=== PATIENT | male | born 1960 | race Caucasian/White ===

== ENCOUNTER → 2024-07-11 | Outpatient (CLI) | payer MEDICARE, MEDICAID, SELFPAY ==
[2024-07-11 11:56] LABS: Quantiferon-TB* See Sep Rpt
[2024-07-12 14:22] LABS: Cocci Serology, IgM Negative (Negative)
[2024-07-13 14:44] LABS: Cocci Serology, IgG Negative (Negative)
== END | disposition home or self-care (01) ==
LOC: SCTO 11:30
PROVIDERS: PCP Physician Assistant; Referring Provider Nurse Practitioner Family; Visit Provider Nurse Practitioner Family
DX: C43.61 Malignant melanoma of right upper limb, including shoulder (principal)
CPT/HCPCS: 36415; 86331; 86480; 86635

== ENCOUNTER 2024-07-19 07:26 | Outpatient (CLI) | payer MEDICARE, MEDICAID, SELFPAY ==
[2024-07-17 14:11] VITALS: BMI 27.3
[2024-07-18 09:47] LABS: Basophils % (Auto) 0 % (0-2.5); Eosinophils # (Auto) 0.1 Thou/mm3 (0.0-0.5); Eosinophils % (Auto) 2 % (0-10); Hemoglobin 16.2 g/dL (13.5-16.0); Immature Granulocytes % (Auto) 1 % (0-0); Immature Granulocytes Auto 0.04 Thou/mm3 (0.00-0.00); Lymphocytes # (Auto) 1.3 Thou/mm3 (1.0-4.8); Lymphocytes % (Auto) 22 % (10-50); Mean Corpuscular HGB Conc 33.8 g/dl (31.0-37.0); Mean Corpuscular Hemoglobin 31.5 pg (25.0-35.0); Mean Corpuscular Volume 93 fL (80-100); Monocytes # (Auto) 0.6 Thou/mm3 (0.0-0.8); Monocytes % (Auto) 9 % (0-12); Neutrophils # (Auto) 3.9 Thou/mm3 (1.8-7.7); Neutrophils % (Auto) 65 % (37-80); Nucleated Red Blood Cell % 0 /100 WBC (0); Platelet Count 233 Thou/mm3 (140-440); RDW Standard Deviation 53.1 fL (35.1-43.9); Red Blood Count 5.14 Miln/mm3 (4.50-5.90)
[2024-07-18 09:58] LABS: Blood Urea Nitrogen 18 mg/dL (9-23); Creatinine (Component) 1.4 mg/dL (0.6-1.3); Estimated Creatinine Clearance 51.6 mL/min (>60); eGFR 57 See Note
[2024-07-18 10:09] LABS: Partial Thromboplastin Time 27.2 Seconds (22.0-36.0); Prothrombin Time 11.1 Seconds (9.0-12.2)
[2024-07-19] VITALS (15 sets, daily range): BP systolic 107–183; BP diastolic 57–98; PULSE 60–67; RESP 11–17; TEMP 36.2–36.4; O2SAT 95–100
--- NOTE | 2024-07-19 | XR_ITS ---
Examination: AP chest single view TECHNIQUE: AP portable chest single view Exam date and time: July 19, 2024 0948 hours INDICATIONS: Post lung biopsy. FINDINGS: No pneumothorax post lung biopsy Cardiac leads satisfactory position Mild prominence left ventricle IMPRESSION: No pneumothorax post lung biopsy
[2024-07-19] MEDS: SODIUM CHLORIDE 0.9% 250 ML 250 ML 50 ML IV (08:06)
--- NOTE | 2024-07-19 08:30 | XR_ITS ---
Examination: CT guided percutaneous biopsy left lower lobe pulmonary nodule CT thorax without intravenous contrast INDICATIONS: 18 mm 19 mm pulmonary nodules left lower lobe Date and time of procedure: July 19, 2024 at 0847 hours Informed consent provided. A timeout was completed verifying correct patient, procedure, site and positioning. Technique: Axial 3 mm sections were obtained for localization of the left lower lobe pulmonary nodules Appropriate area is marked. The patient's site was prepped and draped in sterile fashion Maximal sterile barrier technique utilized, including hand hygiene Local anesthesia was obtained with 1% lidocaine. Low dose protocols were performed. One or more of the following dose reduction techniques were used; automated exposure control, adjustment of the mA and/or KV according to patient size, use of iterative reconstruction technique. Utilizing CT fluoroscopic guidance 4 core biopsies obtained of the pulmonary nodule left lower lobe Patient appears in stable condition during this procedure. At completion of the procedure, the patient is in satisfactory condition. Estimated blood loss 0 cc Complete pathology report to follow. Impression: Successful CT-guided percutaneous biopsy pulmonary nodule left lower lobe
[2024-07-19] MEDS: DIAZEPAM 5 MG TABLET PO (08:43)
[2024-07-19] MEDS: fentaNYL CIT INJ 50 mCg/ML AMP 2ML IVP (09:18)
--- NOTE | 2024-07-19 10:43 | XR_ITS ---
Examination: AP chest single view TECHNIQUE: AP semiupright portable chest single view INDICATIONS: Postop right lung biopsy today. FINDINGS: No pneumothorax post lung biopsy Mild prominence left ventricle No pulmonary edema IMPRESSION: No pneumothorax post lung biopsy
--- NOTE | 2024-07-19 11:08 | PC.NURSE ---
0938 patient is awake, alert, breathing unlabored, s/p lung biopsy, dressing to left upper back dry with no bleeding, report received from Josh RN, patient to recovery until 2 post procedure chest xrays are completed and read by MD. 0943 chest xray #1 completed 1052 chest xray #[address] Anand read chest xray images x2, no pneumothrax seen on chest xray images, ok to discharge patient home per MD. will get patient ready to go home
--- NOTE | 2024-07-19 11:32 | PC.NURSE ---
1128 patient discharged home in wheelchair accopmanied by brothdallas Betancourt
== END 2024-07-19 11:28 | disposition home or self-care (01) ==
PROVIDERS: Radiology Diagnostic Radiology; PCP Physician Assistant; Referring Provider Nurse Practitioner Family; Visit Provider Nurse Practitioner Family
DX: C43.61 Malignant melanoma of right upper limb, including shoulder (principal)
CPT/HCPCS: 32408; 36415; 77012; 82565; 84520; 85025; 85610; 85730; J3010; J7050; A9270

== ENCOUNTER 2024-07-24 14:41 | Outpatient (RCR) | payer MEDICARE, MEDICAID, SELFPAY | END 2024-07-29 23:59 | disposition home or self-care (01) | LOC: SCTC 14:41 | PROVIDERS: PCP Physician Assistant; Referring Provider Physician Assistant; Visit Provider Nurse Practitioner Family | DX: C43.61 Malignant melanoma of right upper limb, including shoulder (principal); C78.02 Secondary malignant neoplasm of left lung; I12.9 Hypertensive chronic kidney disease with stage 1 through stage 4 chronic kidney disease, or unspecified chronic kidney disease; N18.9 Chronic kidney disease, unspecified; Z90.49 Acquired absence of other specified parts of digestive tract; Z87.2 Personal history of diseases of the skin and subcutaneous tissue | CPT/HCPCS: 99212; G0463 ==

== ENCOUNTER 2024-08-24 09:33 | Outpatient (RCR) | payer MEDICARE, MEDICAID, SELFPAY ==
--- NOTE | 2024-08-26 00:04 | CTCFLWUP_ITS ---
Patient: RONY RIOS : 1960 Page 6 of 7 FOLLOW UP NOTE DATE OF SERVICE: 08/24/2024 NAME: RONY RIOS ACCOUNT: [id number] : 1960 AGE: 63 INTERVAL HISTORY: Patient is here for follow-up. Patient says that he is going to see another oncologist for second op inion tomorrow. But he would like me to start treatment sooner. He is willing to take a risk for tr sunil another immunotherapy. Patient also wanted us to try small doses of dabrafenib and trametinib. He does not want to travel outside for clinical trial option. ONCOLOGY HISTORY: DIAGNOSIS: Malignant melanoma of right upper limb, including shoulder [ICD10] C43.61 DATE OF DIAGNOSIS: Initial diagnosis 12/09/2017 Metastatic disease confirmed on 07/19/2024 STAGE/TNM: Stage IV with recurrence in the lungs Stage IIIa BRAF mutation positive melanoma Patient was treated with dabrafenib and trametinib and had severe abdominal pain. TREATMENT HISTORY: Care?Plan Start?Date Cycle Day Intent OPDIvo 03/01/2018 1 28 Curative?(adjuvant) OPDIvo?every?2?weeks?x?1?year 08/31/2018 1 14 Curative?(adjuvant) KCL?40 07/03/2020 1 1 Palliative HISTORY OF PRESENT ILLNESS: Patient is here to follow-up on the metastatic melanoma. Patient had PET/CT done on 06/06/2024 showed non-hypermetabolic 14 mm 6 mm pulmonary nodules left lower lobe, CT chest without contrast recommend ed. Patient had biopsy of the nodule which is consistent with metastatic melanoma. Patient is here to discuss treatment options. He is on methotrexate for his pemphigus vulgaris and also on prednison e. PREVIOUS NOTE: Rony Rios is a 63-year-old male who had a Sharif's level 4, Breslow depth of invasion approximately 1.4 mm superficial spreading type malignant melanoma removed from right [facility] on 12/15/2017. Lymphocyte infiltration was present but not brisk in the tumor. On 01/11/2018 h e had right axilla sentinel lymph node, right supraclavicular sentinel lymph node and wide excision o f the right shoulder surgical area. No residual melanoma was found the surgical site. Right axillar y sentinel lymph node was negative for metastatic disease. Right supraclavicular sentinel lymph node was positive for metastasis. MRI of the brain was done on 02/10/2018 and it was negative study. Abe min also reportedly had a PET CT scan the results of which are not available to me at this time. Monty lyons also had a left pelvic soft tissue mass/lymph node biopsy on 02/23/2018 which did not show any evide nce of metastatic melanoma. 03/01/2018?05/10/2018: Patient received nivolumab in the adjuvant setting (12 of 26 treatments). 04/12/2018: Patient is in the clinic today for follow-up. When I saw him last time on 03/28/2018 I corrina lyons requested B Raff mutation study on his melanoma sample taken on 12/16/2015. The results are available to me today. He is positive for B Yogesh V600 K mutation. 05/23/2018: In view of B Yogesh mutation positivity I have started the patient on dabrafenib and TRAMETIN IB. Patient has taken these medications day before yesterday and yesterday. Since early this morning he started havi ng significant abdominal pain as well as nausea. He has taken Tylenol with some relief. His pain is slowly getting better at this time. He does not want to take these medications any further. He denies any diarrhea. Denies any fevers. He does have reddish discoloration of his face. 06/01/2018: Patient has stopped taking dabrafenib and TRAMETINIB. His abdominal pain is resolved at t his time. He does not want to take these pills again in view of the significant abdominal pain he had recently. H owever he would like to continue nivolumab. 06/07/2018?02/22/2019: Patient received nivolumab in the adjuvant setting. 06/17/2018: PET CT scan was negative study. 03/07/2019: Patient started noticing blisters on his left cheek. Most likely these are secondary to de rmatitis caused by Opdivo. 03/28/2019: Due to new multiple blisters patient was started on prednisone 60 mg p.o. daily. Unfortun ately he was not able to tolerate. 04/04/2019: Patient was started on 2 mg of prednisone p.o. daily, which was slowly tapered off with res olution of his skin blisters.. 08/02/2019: Patient had left colectomy with colo-distal sigmoid anastomosis and mobilization of spleni c flexure. Surgical pathology specimen showed extensive diverticulosis without any evidence of malignancy. 11/05/2019: Ultrasound of the left side of the neck no cystic or solid masses noted. 06/28/2020: PET CT scan?negative no interval metastatic disease. 04/18/2021: PET CT scan? 08/25/2021: AST 74, ALT 84. 12/16/2021: Hepatitis C viral RNA genotype not detected. 05/28/2022: PET/CT scan? 05/27/2023: PET/CT scan 08/06/2023: CEA 2.5 11/05/2023: CEA is 2.1 02/07/2024: CEA is 2.1 05/26/2024: CEA is 1.9 06/06/2024: PET/KP-znq-vrsvaeddvugdcp 14 mm 6 mm pulmonary nodules left lower lobe OTHER MEDICAL HISTORY/CONDITIONS: FAMILY HISTORY: SOCIAL HISTORY: MEDICATIONS: 1. atorvastatin - 20 mg 1 tab Daily 2. Benadryl - 25 mg Capsule As directed 3. Breo Ellipta - 200-25 mcg/dose As directed 4. clonidine - 0.1 mg 1 tab Twice a Day 5. dilTIAZem HCl - 240 mg 1 Capsule Daily 6. eszopiclone - 2 mg 1 tab Daily 7. flecainide - 100 mg Twice a Day 8. folic acid - 1 mg 1 tab Daily 9. latanoprost (PF) - 0.005 % 1 In the evening 10. Linzess - 290 mcg 1 Capsule Daily 11. losartan - 50 mg 1 tab Daily 12. methotrexate - 2.5 mg 10 tab Weekly 13. metoprolol tartrate - 50 mg Twice a Day 14. Pred - 10 mg 1 tab Daily 15. Protonix - 40 mg 1 tab twice daily 16. Tylenol Extra Strength - 500 mg 2 tab Twice a Day 17. Ventolin - As directed Medications Last Reconciled by Susi Lundberg MA on 08/24/2024 ALLERGIES: hydrocodone-acetaminophen; hydrocodone-acetaminophen; morphine (bulk); meperidine (PF); ca risoprodol; PENICILLAMINE; clindamycin HCl REVIEW OF SYSTEMS: A complete 14-point review of systems was performed and is negative except as noted in interval histo ry. PHYSICAL EXAMINATION: VITAL SIGNS: Temperature?98, B/P?135/86, Oxygen?Saturation?98% Weight?162.8?lbs PAIN: 6 - Severe pain ECOG Performance Status: 0 - Asymptomatic and fully active GENERAL APPEARANCE: Appears well, in no apparent distress, appropriately interactive. HEENT: Normocephalic, no temporal wasting, normal conjunctiva, no scleral icterus, normal hearing, li ps without lesions, neck normal range of motion. CARDIOVASCULAR: Not assessed. PULMONARY: Normal respiratory effort, no respiratory distress or use of accessory muscles, speaking i n full sentences, no tachypnea. EXTREMITIES: No pedal edema or cyanosis. SKIN: Normal skin appearance. NEUROLOGIC: Alert and oriented x4. PSHYCHIATRIC: Appropriate affect, mood normal, behavior normal, intact thought and speech. LABORATORY DATA: I have personally reviewed and interpreted each of the patient?s relevant lab tests, abnormal finding s are below: Date 07/18/24 ??BLOOD?UREA?NITROGEN?(mg/dL) 18 ASSESSMENT/PLAN: Metastatic melanoma 07/19/2024 lung nodule confirmed metastatic melanoma Patient was noted to have 214 mm and 6 mm pulmonary nodules which on biopsy confirmed melanoma I discussed with Mr. Rios the option of starting nivolumab or Keytruda as single agent Will proceed with Keytruda every 3 weeks Patient advised to continue taking his Protonix twice daily Patient is on methotrexate for his pemphigus vulgaris I will wait for second opinion from another oncologist and take into consideration recommendation bef ore starting treatment Will also continue prednisone 10 mg before starting immunotherapy ORDERS: CBC CMP TSH T4 RETURN TO CLINIC: 1 week BILLING AND COMPLIANCE: I reviewed external records from providers outside my specialty as summarized above. I spent a total of 50 minutes on this patient?s care on the day of their visit excluding time spent related to any bi lled procedures. This time includes time spent with the patient as well as time spent documenting in the medical record, reviewing patients records and tests, obtaining history, placing orders, communi cating with other healthcare professionals, counseling the patient, family or caregiver, and/or care coordination for the diagnoses above. Electronically Signed by: {Object.Sanct_ID*PnP.NameFL@}, {Object.Sanct_ID*PnP.Suffix@U} D: {Object.Sanct_Date} T: {Object.Sanct_Time} CC: Randy?Arian,VIDHI PCP: Randy Don Referring: Randy Don This document was completed utilizing speech recognition software. Grammatical errors, random word in sertions, pronoun errors, and incomplete sentences are an occasional consequence of this system due t o software limitations, ambient noise, and hardware issues. Any formal questions or concerns about th e content, text or information contained within the body of this dictation should be directly address ed to the provider for clarification.
== END 2024-08-29 23:59 | disposition home or self-care (01) ==
LOC: SCTC 09:33
PROVIDERS: PCP Physician Assistant; Referring Provider Physician Assistant; Visit Provider Internal Medicine Hematology & Oncology
DX: C43.61 Malignant melanoma of right upper limb, including shoulder (principal); C78.02 Secondary malignant neoplasm of left lung; L10.0 Pemphigus vulgaris
CPT/HCPCS: Q3014

== ENCOUNTER 2024-09-13 09:41 | Outpatient (RCR) | payer MEDICARE, MEDICAID, SELFPAY ==
--- NOTE | 2024-09-05 16:17 | CTCFLWUP_ITS ---
Patient: RONY RIOS : 1960 Page 2 of 2 FOLLOW UP NOTE DATE OF SERVICE: 09/05/2024 NAME: RONY RIOS ACCOUNT: [id number] : 1960 AGE: 63 INTERVAL HISTORY: Patient is here for follow-up. Patient was recently seen for second opinion.. Patient was treated w ith dabrafenib and trametinib in the past and resulted in abdominal pain. Patient's symptoms resolve d after stopping the drug. Patient is here and requesting to restart the medicine at a lower dose to see how he can tolerate better. ONCOLOGY HISTORY: DIAGNOSIS: Malignant melanoma of right upper limb, including shoulder [ICD10] C43.61 DATE OF DIAGNOSIS: Initial diagnosis 12/09/2017 Metastatic disease confirmed on 07/19/2024 STAGE/TNM: Stage IV with recurrence in the lungs Stage IIIa BRAF mutation positive melanoma Patient was treated with dabrafenib and trametinib and had severe abdominal pain. TREATMENT HISTORY: Care?Plan Start?Date Cycle Day Intent OPDIvo 03/01/2018 1 28 Curative?(adjuvant) OPDIvo?every?2?weeks?x?1?year 08/31/2018 1 14 Curative?(adjuvant) KCL?40 07/03/2020 1 1 Palliative Pembrolizumab?alone 08/26/2024 1 21 Palliative HISTORY OF PRESENT ILLNESS: Patient is here to follow-up on the metastatic melanoma. Patient had PET/CT done on 06/06/2024 showed non-hypermetabolic 14 mm 6 mm pulmonary nodules left lower lobe, CT chest without contrast recommend ed. Patient had biopsy of the nodule which is consistent with metastatic melanoma. Patient is here to discuss treatment options. He is on methotrexate for his pemphigus vulgaris and also on prednison e. PREVIOUS NOTE: Rony Rios is a 63-year-old male who had a Sharif's level 4, Breslow depth of invasion approximately 1.4 mm superficial spreading type malignant melanoma removed from right [facility] on 12/15/2017. Lymphocyte infiltration was present but not brisk in the tumor. On 01/11/2018 h e had right axilla sentinel lymph node, right supraclavicular sentinel lymph node and wide excision o f the right shoulder surgical area. No residual melanoma was found the surgical site. Right axillar y sentinel lymph node was negative for metastatic disease. Right supraclavicular sentinel lymph node was positive for metastasis. MRI of the brain was done on 02/10/2018 and it was negative study. Abe min also reportedly had a PET CT scan the results of which are not available to me at this time. Monty lyons also had a left pelvic soft tissue mass/lymph node biopsy on 02/23/2018 which did not show any evide nce of metastatic melanoma. 03/01/2018?05/10/2018: Patient received nivolumab in the adjuvant setting (12 of 26 treatments). 04/12/2018: Patient is in the clinic today for follow-up. When I saw him last time on 03/28/2018 I corrina lyons requested B Raff mutation study on his melanoma sample taken on 12/16/2015. The results are available to me today. He is positive for B Yogesh V600 K mutation. 05/23/2018: In view of B Yogesh mutation positivity I have started the patient on dabrafenib and TRAMETIN IB. Patient has taken these medications day before yesterday and yesterday. Since early this morning he started havi ng significant abdominal pain as well as nausea. He has taken Tylenol with some relief. His pain is slowly getting better at this time. He does not want to take these medications any further. He denies any diarrhea. Denies any fevers. He does have reddish discoloration of his face. 06/01/2018: Patient has stopped taking dabrafenib and TRAMETINIB. His abdominal pain is resolved at t his time. He does not want to take these pills again in view of the significant abdominal pain he had recently. H owever he would like to continue nivolumab. 06/07/2018?02/22/2019: Patient received nivolumab in the adjuvant setting. 06/17/2018: PET CT scan was negative study. 03/07/2019: Patient started noticing blisters on his left cheek. Most likely these are secondary to de rmatitis caused by Opdivo. 03/28/2019: Due to new multiple blisters patient was started on prednisone 60 mg p.o. daily. Unfortun ately he was not able to tolerate. 04/04/2019: Patient was started on 2 mg of prednisone p.o. daily, which was slowly tapered off with res olution of his skin blisters.. 08/02/2019: Patient had left colectomy with colo-distal sigmoid anastomosis and mobilization of spleni c flexure. Surgical pathology specimen showed extensive diverticulosis without any evidence of malignancy. 11/05/2019: Ultrasound of the left side of the neck no cystic or solid masses noted. 06/28/2020: PET CT scan?negative no interval metastatic disease. 04/18/2021: PET CT scan? 08/25/2021: AST 74, ALT 84. 12/16/2021: Hepatitis C viral RNA genotype not detected. 05/28/2022: PET/CT scan? 05/27/2023: PET/CT scan 08/06/2023: CEA 2.5 11/05/2023: CEA is 2.1 02/07/2024: CEA is 2.1 05/26/2024: CEA is 1.9 06/06/2024: PET/SY-yfc-cciogsezfxbyma 14 mm 6 mm pulmonary nodules left lower lobe OTHER MEDICAL HISTORY/CONDITIONS: FAMILY HISTORY: SOCIAL HISTORY: MEDICATIONS: 1. atorvastatin - 20 mg 1 tab Daily 2. Benadryl - 25 mg Capsule As directed 3. Breo Ellipta - 200-25 mcg/dose As directed 4. clonidine - 0.1 mg 1 tab Twice a Day 5. dilTIAZem HCl - 240 mg 1 Capsule Daily 6. eszopiclone - 2 mg 1 tab Daily 7. flecainide - 100 mg Twice a Day 8. folic acid - 1 mg 1 tab Daily 9. latanoprost (PF) - 0.005 % 1 In the evening 10. Linzess - 290 mcg 1 Capsule Daily 11. losartan - 50 mg 1 tab Daily 12. methotrexate - 2.5 mg 10 tab Weekly 13. metoprolol tartrate - 50 mg Twice a Day 14. Pred - 10 mg 1 tab Daily 15. Protonix - 40 mg 1 tab twice daily 16. Tylenol Extra Strength - 500 mg 2 tab Twice a Day 17. Ventolin - As directed Medications Last Reconciled by Susi Lundberg MA on 08/24/2024 ALLERGIES: hydrocodone-acetaminophen; hydrocodone-acetaminophen; morphine (bulk); meperidine (PF); ca risoprodol; PENICILLAMINE; clindamycin HCl REVIEW OF SYSTEMS: A complete 14-point review of systems was performed and is negative except as noted in interval histo ry. PHYSICAL EXAMINATION: VITAL SIGNS: Temperature?99.2, B/P?155/83, Oxygen?Saturation?97% Weight?165?lbs (Change?since? 4:?2.2?lbs) PAIN: 3 - Between mild and moderate pain ECOG Performance Status: 0 - Asymptomatic and fully active GENERAL APPEARANCE: Appears well, in no apparent distress, appropriately interactive. HEENT: Normocephalic, no temporal wasting, normal conjunctiva, no scleral icterus, normal hearing, li ps without lesions, neck normal range of motion. CARDIOVASCULAR: Not assessed. PULMONARY: Normal respiratory effort, no respiratory distress or use of accessory muscles, speaking i n full sentences, no tachypnea. EXTREMITIES: No pedal edema or cyanosis. SKIN: Normal skin appearance. NEUROLOGIC: Alert and oriented x4. PSHYCHIATRIC: Appropriate affect, mood normal, behavior normal, intact thought and speech. LABORATORY DATA: I have personally reviewed and interpreted each of the patient?s relevant lab tests, abnormal finding s are below: Date 07/18/24 ??BLOOD?UREA?NITROGEN?(mg/dL) 18 ASSESSMENT/PLAN: Metastatic melanoma 07/19/2024 lung nodule confirmed metastatic melanoma Patient was noted to have 214 mm and 6 mm pulmonary nodules which on biopsy confirmed melanoma Patient do not want to do immunotherapy at this time and requesting to start tablets Will start on dabrafenib trametinib Patient advised to continue taking his Protonix twice daily Patient is on methotrexate for his pemphigus vulgaris Will start on trametinib 1.5 mg p.o. daily with dabrafenib 150 mg twice daily CBC CMP echo and optometry exam RETURN TO CLINIC: 4 weeks BILLING AND COMPLIANCE: I reviewed external records from providers outside my specialty as summarized above. I spent a total of 50 minutes on this patient?s care on the day of their visit excluding time spent related to any bi lled procedures. This time includes time spent with the patient as well as time spent documenting in the medical record, reviewing patients records and tests, obtaining history, placing orders, communi cating with other healthcare professionals, counseling the patient, family or caregiver, and/or care coordination for the diagnoses above. Electronically Signed by: Khris Venegas MD T: 4:15 PM CC: Randy?Arian,? PCP: Randy Don Referring: Randy Don This document was completed utilizing speech recognition software. Grammatical errors, random word in sertions, pronoun errors, and incomplete sentences are an occasional consequence of this system due t o software limitations, ambient noise, and hardware issues. Any formal questions or concerns about th e content, text or information contained within the body of this dictation should be directly address ed to the provider for clarification.
[2024-09-13 13:07] LABS: Alanine Aminotransferase 73 U/L (10-49); Albumin, Serum 4.7 gm/dL (3.4-4.8); Alkaline Phosphatase 128 U/L (46-116); Anion Gap 11 (7-16); Aspartate Amino Transferase 41 U/L (0-34); BUN/Creatinine Ratio 13 Ratio (12-20); Bilirubin,Total 0.8 mg/dL (0.3-1.2); Blood Urea Nitrogen 16 mg/dL (9-23); Calcium 9.5 mg/dL (8.3-10.6); Calcium (Corrected) 9.5 mg/dL (8.5-10.1); Chloride 106 mMol/L (98-107); Creatinine (Component) 1.2 mg/dL (0.6-1.3); Globulin 2.3 gm/dL (2.3-3.5); Glucose 86 mg/dL (74-106); Osmolality,Calculated 277 (275-295); Potassium 4.2 mMol/L (3.4-5.1); Sodium 139 mMol/L (136-145); eGFR > 60 See Note
[2024-09-13 15:53] LABS: Basophils % (Auto) 0 % (0-2.5); Eosinophils # (Auto) 0.2 Thou/mm3 (0.0-0.5); Eosinophils % (Auto) 3 % (0-10); Hematocrit 45.8 % (41.0-53.0); Hemoglobin 15.5 g/dL (13.5-16.0); Immature Granulocytes % (Auto) 1 % (0-0); Immature Granulocytes Auto 0.05 Thou/mm3 (0.00-0.00); Lymphocytes # (Auto) 1.4 Thou/mm3 (1.0-4.8); Lymphocytes % (Auto) 20 % (10-50); Mean Corpuscular HGB Conc 33.8 g/dl (31.0-37.0); Mean Corpuscular Hemoglobin 31.5 pg (25.0-35.0); Mean Corpuscular Volume 93 fL (80-100); Monocytes # (Auto) 0.6 Thou/mm3 (0.0-0.8); Monocytes % (Auto) 9 % (0-12); Neutrophils # (Auto) 4.5 Thou/mm3 (1.8-7.7); Neutrophils % (Auto) 67 % (37-80); Nucleated Red Blood Cell % 0 /100 WBC (0); Platelet Count 251 Thou/mm3 (140-440); RDW Standard Deviation 50.5 fL (35.1-43.9); Red Blood Count 4.92 Miln/mm3 (4.50-5.90); White Blood Count 6.7 Thou/mm3 (3.8-10.6)
== END 2024-09-29 23:59 | disposition home or self-care (01) ==
LOC: SCTC 09:41
PROVIDERS: PCP Physician Assistant; Referring Provider Physician Assistant; Visit Provider Internal Medicine Hematology & Oncology
DX: C43.61 Malignant melanoma of right upper limb, including shoulder (principal); C78.02 Secondary malignant neoplasm of left lung
CPT/HCPCS: 36591; 80053; 85025; 99212; A4216; J1642; G0463

== ENCOUNTER 2024-10-26 13:50 | Outpatient (RCR) | payer MEDICARE, MEDICAID, SELFPAY ==
--- NOTE | 2024-10-05 11:36 | CTCCONSULT_ITS ---
[facility] [address] [place], [place] [address] Consultation Note Date: 10/05/2024 MR#: [id number] Name: RONY DE LA ROSA : 1960 Dx: C43.61 Malignant melanoma of right upper limb, including shoulder Attending physician. Randy Don PA-C [facility]. Referring physician. Khris Venegas MD Reason for consultation. Patient with metastatic melanoma with recently discovered lung mets biopsy positive referred for SBRT. History of Present Illness: Patient was initially diagnosed with melanoma superficial spreading type involving the proximal right arm 12/15/2017 . Underwent right axilla sentinel lymph node right supra clavicle sentinel lymph node and wide excision of right shoulder surgical area. Stage IIIa BRAF muta tion positive melanoma. Had been on nivolumab 03/01/2018 through 02/22/2019 discontinued due to blistering lesions on skin.. PET scan 06/06/2024 showed non- hypermetabolic 14 mm and 6 mm nodules left lower lobe. CT scan 07/05/2024 revealed 18 mm and 19 mm quality eng left lower lobe. CT-guided biopsy p ositive for malignancy consistent with metastatic melanoma. Patient had second opinion with another oncologist Talisha who discussed SBRT with him, as he was concerned about side effects with various forms of chemo or immunotherapy. Patient is currently taking methotrexate for his pemphigus skin problem being followed by electrical control assembler in [place]. Dr. Venegas will be prescribing dabrafenib and trametinib for patient. Past Medical History: 1. History of superficial spreading melanoma diagnosed since November 2017 as noted in HPI 2. Left colectomy for diverticulosis 2018. 3. Pemphigus being followed by electrical control assembler in [place]. History of hepatitis asthma hypertension gastritis Meds. Atorvastatin Benadryl Breo Ellipta clonidine diltiazem ezopicione flecainide Linzess losartan methotrexate metoprolol prednisone Protonix Tylenol Ventolin as needed Allergies hydrocodone morphine meperidine penicillamine clindamycin Caris bisoprolol. Social History: On disability due to back injury. Denies smoking drinking Review of Systems: Denies any significant pain at this point Physical Exam: General: Well-appearing gentleman in no acute distress HEENT: Atraumatic no cephalic extraocular was intact no oral lesion no cervical or supraclavicular adenopathy CV: Chest clear to auscultation heart regular rate and rhythm ABD: Soft no organomegaly tenderness EXT: No signs of clubbing or edema. Assessment: 1. Recurrent metastatic melanoma, Initial diagnosis 12/15/2017, with recently discovered biopsy-proven lung mets left lower lobe, 18 mm and 19 mm. 2. Patient previously treated and benefited from immunotherapy, now has been prescribed dabafatinib and trametinib under Dr. Venegas's direction. 3. Patient referred for SBRT to the 2 small lesions left lower lobe. Approximately 5000 cGy in 5 fractions given over 2 or 3-week duration will be prescribed. Patient told of the usual side effects. 4. Thank you very much for allowing me to evaluate and manage this patient. Cc: Randy Don PA-C [facility] Electronically signed by: Jimmie Hsu MD, GERARDR 10/05/2024 11:34 AM
--- NOTE | 2024-10-05 11:37 | CTCTXPLN_ITS ---
[facility] [address] [place], [place] [address] Physician Clinical Treatment Planning Note Date of Service: 10/05/2024 Name: RONY DE LA ROSA : 1960 The patient has agreed to proceed with Radiation therapy. Tests and supporting medical records were interpreted to assist in defining the tumor location and extent of disease. Further imaging will be necessary to contour and delineate the volume to which the XRT will be provided. A. Treatment Intent: Curative B. Modality: 6 MV C. Requested Technique: SBRT D. Treatment Site: Left lower lobe E. Critical structures to be contoured on plan: F. In order to accomplish this plan, I am ordering/Prescribing the followin. Simulations (s) will be performed to accomplish a reproducible treatment position, to determine optimal treatment portals/beam arrangements, to design beam modifying devices and verify treatment portals on patient prior to the commencement of Radiation Therapy. Chest 2. Devices; for immobilization and beam shaping: SBRT 3. CT Guidance for placement of XRT park Scan area: Chest 4. Portal images Frequency: 5. Invivo transit dose measurement once per week on all VMAT patients. 6. Special Physics Consult Requested for: SBRT 7. Other requests: Special procedure for SBRT G. Dose Objectives: Curative Electronically signed by: Jimmie Hsu M.D. 10/05/2024 11:35 AM
--- NOTE | 2024-10-05 11:43 | CTCTXPLNST_ITS ---
Radiation Oncology Treatment Planning Sheet Name: RONY DE LA ROSA MR#: [id number] : 1960 Dx: C43.61 Malignant melanoma of right upper limb, including shoulder Date of Service: 10/05/2024 Account #: ?? Pt Treatment Intent: curative palliative other: Stage: Procedure CPT # Ordered Spec. Procedure 97263 SBRT 1 Fowler Complex (set-up) 26250 Chest T5- T12 1 Fowler Simple 13939 IMRT Plan 79232 1 MLC Devices VMAT 43509 6 Fowler 3 D 14559 TRTMT dev Complex 09637 vaklok 1 TRTMT dev simple 24806 Basic Frantz 69755 7 Special Dosimetry 10979 Spec Physics 09053 Port Films 87510 SRS Cranial/1FX 11137 SBR 5 FX or Less /ex: 5 = 5 fx 55140 5000 5 IMRT Simple 67798 IMRT Complex 16596 IGRT 99035 5 Rad del com 6-10 05506 Rad del com 11- 52718 Cont Med Physics 85187 3 Treatment Planning 54019 1 Rad del com 20 mev 21248 Rad del inter 6 76310 Rad del inter 07-18 41181 Rad del simple 6-10 47864 Rad del simple 11 80413 Special Port Plan 50149 TRTMT dev inter 20481 Isodose Complex 85069 Isodose simple 70225 Resp Motion Mgmt Simulation 09691 Placement of Fiducial Markers 71143 Electronically Signed By: Jimmie Hsu MD, DABR 10/05/2024 11:41 AM
[2024-10-18 16:21] LABS: Basophils % (Auto) 0 % (0-2.5); Eosinophils # (Auto) 0.1 Thou/mm3 (0.0-0.5); Eosinophils % (Auto) 2 % (0-10); Hemoglobin 14.9 g/dL (13.5-16.0); Immature Granulocytes % (Auto) 0 % (0-0); Immature Granulocytes Auto 0.02 Thou/mm3 (0.00-0.00); Lymphocytes % (Auto) 28 % (10-50); Mean Corpuscular HGB Conc 33.9 g/dl (31.0-37.0); Mean Corpuscular Hemoglobin 30.5 pg (25.0-35.0); Mean Corpuscular Volume 90 fL (80-100); Monocytes # (Auto) 0.6 Thou/mm3 (0.0-0.8); Monocytes % (Auto) 9 % (0-12); Neutrophils # (Auto) 4.2 Thou/mm3 (1.8-7.7); Neutrophils % (Auto) 61 % (37-80); Nucleated Red Blood Cell % 0 /100 WBC (0); Platelet Count 208 Thou/mm3 (140-440); RDW Standard Deviation 48.7 fL (35.1-43.9); Red Blood Count 4.88 Miln/mm3 (4.50-5.90); White Blood Count 6.9 Thou/mm3 (3.8-10.6)
[2024-10-18 16:58] LABS: Carcinoembryonic Antigen 1.9 ng/mL (0.0-5.0)
[2024-10-18 16:59] LABS: Alanine Aminotransferase 56 U/L (10-49); Albumin, Serum 3.9 gm/dL (3.4-4.8); Albumin/Globulin Ratio 1.5 (1.2-2.2); Alkaline Phosphatase 148 U/L (46-116); Anion Gap 13 (7-16); Aspartate Amino Transferase 65 U/L (0-34); BUN/Creatinine Ratio 17 Ratio (12-20); Bilirubin,Total 0.7 mg/dL (0.3-1.2); Blood Urea Nitrogen 20 mg/dL (9-23); Calcium 9.1 mg/dL (8.3-10.6); Calcium (Corrected) 9.2 mg/dL (8.5-10.1); Chloride 106 mMol/L (98-107); Creatinine (Component) 1.2 mg/dL (0.6-1.3); Globulin 2.6 gm/dL (2.3-3.5); Glucose 96 mg/dL (74-106); Osmolality,Calculated 280 (275-295); Potassium 4.1 mMol/L (3.4-5.1); Sodium 139 mMol/L (136-145); Total Protein 6.5 gm/dL (5.7-8.2); eGFR > 60 See Note
--- NOTE | 2024-10-19 15:52 | CTCFLWUP_ITS ---
Patient: RONY RIOS : 1960 Page 2 of 2 FOLLOW UP NOTE DATE OF SERVICE: 10/19/2024 NAME: RONY RIOS ACCOUNT: [id number] : 1960 AGE: 63 INTERVAL HISTORY: Patient is here for follow-up. Patient is taking dabrafenib and trametinib. Tolerating well. Patient is scheduled for SBRT. ONCOLOGY HISTORY:?[facility] Hx? DIAGNOSIS: Malignant melanoma of right upper limb, including shoulder [ICD10] C43.61 DATE OF DIAGNOSIS: Initial diagnosis 12/09/2017 Metastatic disease confirmed on 07/19/2024 STAGE/TNM: Stage IV with recurrence in the lungs Stage IIIa BRAF mutation positive melanoma Patient was treated with dabrafenib and trametinib and had severe abdominal pain. TREATMENT HISTORY: Care?Plan Start?Date Cycle Day Intent OPDIvo 03/01/2018 1 28 Curative?(adjuvant) OPDIvo?every?2?weeks?x?1?year 08/31/2018 1 14 Curative?(adjuvant) KCL?40 07/03/2020 1 1 Palliative Pembrolizumab?alone 08/26/2024 1 21 Palliative HISTORY OF PRESENT ILLNESS: Patient is here to follow-up on the metastatic melanoma. Patient had PET/CT done on 06/06/2024 showed non-hypermetabolic 14 mm 6 mm pulmonary nodules left lower lobe, CT chest without contrast recommended. Patient had biopsy of the nodule which is consistent with metastatic melanoma. Patient is here to discuss treatment options. 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 PREVIOUS NOTE: Rony Rios is a 63-year-old male who had a Sharif's level 4, Breslow depth of invasion approximately 1.4 mm superficial spreading type malignant melanoma removed from right shoulder on 12/15/2017. Lymphocyte infiltration was present but not brisk in the tumor. On 01/11/2018 he had right axilla sentinel lymph node, right supraclavicular sentinel lymph node and wide excision of the right shoulder surgical area. No residual melanoma was found the surgical site. Right axillary sentinel lymph node was negative for metastatic disease. Right supraclavicular sentinel lymph node was positive for metastasis. MRI of the brain was done on 02/10/2018 and it was negative study. Patient also reportedly had a PET CT scan the results of which are not available to me at this time. He also had a left pelvic soft tissue mass/lymph node biopsy on 02/23/2018 which did not show any evidence of metastatic melanoma. 03/01/2018?05/10/2018: Patient received nivolumab in the adjuvant setting (12 of 26 treatments). 04/12/2018: Patient is in the clinic today for follow-up. When I saw him last time on 03/28/2018 I have requested B Raff mutation study on his melanoma sample taken on 12/16/2015. The results are available to me today. He is positive for B Yogesh V600 K mutation. 05/23/2018: In view of B Yogesh mutation positivity I have started the patient on dabrafenib and TRAMETINIB. Patient has taken these medications day before yesterday and yesterday. Since early this morning he started having significant abdominal pain as well as nausea. He has taken Tylenol with some relief. His pain is slowly getting better at this time. He does not want to take these medications any further. He denies any diarrhea. Denies any fevers. He does have reddish discoloration of his face. 06/01/2018: Patient has stopped taking dabrafenib and TRAMETINIB. His abdominal pain is resolved at this time. He does not want to take these pills again in view of the significant abdominal pain he had recently. However he would like to continue nivolumab. 06/07/2018?02/22/2019: Patient received nivolumab in the adjuvant setting. 06/17/2018: PET CT scan was negative study. 03/07/2019: Patient started noticing blisters on his left cheek. Most likely these are secondary to dermatitis caused by Opdivo. 03/28/2019: Due to new multiple blisters patient was started on prednisone 60 mg p.o. daily. Unfortunately he was not able to tolerate. 04/04/2019: Patient was started on 2 mg of prednisone p.o. daily, which was slowly tapered off with resolution of his skin blisters.. 08/02/2019: Patient had left colectomy with colo-distal sigmoid anastomosis and mobilization of splenic flexure. Surgical pathology specimen showed extensive diverticulosis without any evidence of malignancy. 11/05/2019: Ultrasound of the left side of the neck no cystic or solid masses noted. 06/28/2020: PET CT scan?negative no interval metastatic disease. 04/18/2021: PET CT scan? 08/25/2021: AST 74, ALT 84. 12/16/2021: Hepatitis C viral RNA genotype not detected. 05/28/2022: PET/CT scan? 05/27/2023: PET/CT scan 08/06/2023: CEA 2.5 11/05/2023: CEA is 2.1 02/07/2024: CEA is 2.1 05/26/2024: CEA is 1.9 06/06/2024: PET/DN-wfx-wjdprihjamjiki 14 mm 6 mm pulmonary nodules left lower lobe OTHER MEDICAL HISTORY/CONDITIONS: FAMILY HISTORY: ?Clone Family Hx? SOCIAL HISTORY: MEDICATIONS: 1. atorvastatin - 20 mg 1 tab Daily 2. Benadryl - 25 mg Capsule As directed 3. Breo Ellipta - 200-25 mcg/dose As directed 4. clonidine - 0.1 mg 1 tab Twice a Day 5. dabrafenib - 75 mg 2 Capsule Twice a Day 6. dilTIAZem HCl - 240 mg 1 Capsule Daily 7. eszopiclone - 2 mg 1 tab Daily 8. flecainide - 100 mg Twice a Day 9. folic acid - 1 mg 1 tab Daily 10. latanoprost (PF) - 0.005 % 1 In the evening 11. Linzess - 290 mcg 1 Capsule Daily 12. losartan - 50 mg 1 tab Daily 13. methotrexate - 2.5 mg 10 tab Weekly 14. metoprolol tartrate - 50 mg Twice a Day 15. Pred - 10 mg 1 tab Daily 16. Protonix - 40 mg 1 tab twice daily 17. trametinib - 0.5 mg 3 tab Daily 18. Tylenol Extra Strength - 500 mg 2 tab Twice a Day 19. Ventolin - As directed 20. Zofran - 8 mg 1 tab Every 8 Hours?Palabra Meds? Medications Last Reconciled by Susi Lundberg MA on 10/19/2024 ALLERGIES: hydrocodone-acetaminophen; hydrocodone-acetaminophen; morphine (bulk); meperidine (PF); carisoprodol; PENICILLAMINE; clindamycin HCl REVIEW OF SYSTEMS: A complete 14-point review of systems was performed and is negative except as noted in interval history. PHYSICAL EXAMINATION:?Javed PE? VITAL SIGNS: Temperature?99.4, B/P?148/90, Oxygen?Saturation?98% Weight?161?lbs (Change?since?10/18/24:?0.2?lbs) PAIN: 6 - Severe pain ECOG Performance Status: 0 - Asymptomatic and fully active GENERAL APPEARANCE: Appears well, in no apparent distress, appropriately interactive. HEENT: Normocephalic, no temporal wasting, normal conjunctiva, no scleral icterus, normal hearing, lips without lesions, neck normal range of motion. CARDIOVASCULAR: Not assessed. PULMONARY: Normal respiratory effort, no respiratory distress or use of accessory muscles, speaking in full sentences, no tachypnea. EXTREMITIES: No pedal edema or cyanosis. SKIN: Normal skin appearance. NEUROLOGIC: Alert and oriented x4. PSHYCHIATRIC: Appropriate affect, mood normal, behavior normal, intact thought and speech. LABORATORY DATA: I have personally reviewed and interpreted each of the patient?s relevant lab tests, abnormal findings are below: Date 10/18/24 ??WHITE?BLOOD?COUNT?(Thou/mm3) 6.9 ??RED?BLOOD?COUNT?(Miln/mm3) 4.88 ??HEMOGLOBIN?(gm/dl) 14.9 ??HEMATOCRIT?(%) 44.0 ??PLATELET?COUNT?(Thou/mm3) 208 ??NEUTROPHILS?%,?AUTO?(%) 61 ??LYMPH?%,?AUTO?(%) 28 ??NEUTROPHILS,?AUTO?(Thou/mm3) 4.2 ASSESSMENT/PLAN:?Javed Venegas Assessment/Plan? Metastatic melanoma 07/19/2024 lung nodule confirmed metastatic melanoma Patient was noted to have 214 mm and 6 mm pulmonary nodules which on biopsy confirmed melanoma Patient is on dabrafenib trametinib Patient advised to continue taking his Protonix twice daily Patient is on methotrexate for his pemphigus vulgaris Continue trametinib 1.5 mg p.o. daily with dabrafenib 150 mg twice daily CBC CMP echo reviewed and are stable and optometry exam is stable as per patient CBC CMP echocardiogram PET CT scan to see response to treatment RETURN TO CLINIC: I will see him back in the clinic in 2 months. BILLING AND COMPLIANCE: I reviewed external records from providers outside my specialty as summarized above. I spent a total of 50 minutes on this patient?s care on the day of their visit excluding time spent related to any billed procedures. This time includes time spent with the patient as well as time spent documenting in the medical record, reviewing patients records and tests, obtaining history, placing orders, communicating with other healthcare professionals, counseling the patient, family or caregiver, and/or care coordination for the diagnoses above. Electronically Signed by: Khris Venegas MD T: 3:50 PM CC: Randy?Arian,VIDHI PCP: Randy Don Referring: Randy Don This document was completed utilizing speech recognition software. Grammatical errors, random word insertions, pronoun errors, and incomplete sentences are an occasional consequence of this system due to software limitations, ambient noise, and hardware issues. Any formal questions or concerns about the content, text or information contained within the body of this dictation should be directly addressed to the provider for clarification.
== END 2024-10-27 23:59 | disposition home or self-care (01) ==
LOC: SCTC 13:50
PROVIDERS: PCP Physician Assistant; Referring Provider Physician Assistant; Visit Provider Internal Medicine Hematology & Oncology
DX: Z51.0 Encounter for antineoplastic radiation therapy (principal); C43.61 Malignant melanoma of right upper limb, including shoulder; C78.02 Secondary malignant neoplasm of left lung
CPT/HCPCS: 36591; 77014; 77290; 77300; 77301; 77334; 77338; 77373; 77470; 80053; 82378; 85025; 99212; 99213; A4216; J1642; G0463

== ENCOUNTER 2024-11-21 13:41 | Outpatient (RCR) | payer MEDICARE, MEDICAID, SELFPAY | END 2024-11-27 23:59 | disposition home or self-care (01) | LOC: SCTC 13:41 | PROVIDERS: PCP Physician Assistant; Referring Provider Physician Assistant; Visit Provider Internal Medicine Hematology & Oncology | DX: Z51.0 Encounter for antineoplastic radiation therapy (principal); C78.02 Secondary malignant neoplasm of left lung; C43.61 Malignant melanoma of right upper limb, including shoulder; L59.8 Other specified disorders of the skin and subcutaneous tissue related to radiation; Y84.2 Radiological procedure and radiotherapy as the cause of abnormal reaction of the patient, or of later complication, without mention of misadventure at the time of the procedure | CPT/HCPCS: 36591; 77336; 77373; 99212; A4216; J1642; G0463 ==

== ENCOUNTER → 2024-12-12 | Outpatient (CLI) | payer MEDICARE, MEDICAID, SELFPAY ==
--- NOTE | 2024-12-12 14:45 | XR_ITS ---
EXAMINATION: PET/CT FUSION SKULL TO THIGH EXAM DATE AND TIME: December 12, 2024 1559 hrs. Comparison: PET CT scan June 06, 2024, CT chest July 05, 2024 Indications: Diagnosis malignant melanoma restaging post treatment, CT chest July 05, 2024 18 mm 19 mm pulmonary nodules left lower lobe CTDI:vol (mGy) 4.95 DLP: (mGycm) 514 PROCEDURE: 14.2 mCi FDG was administered intravenously To allow for distribution and uptake of radiotracer, the patient was allowed to rest quietly in a shielded room. Imaging was performed on an integrated 16-slice PET/CT scanner, with scanning from the skull base to the mid thigh. Serum blood glucose at the time of the injection was measured 93 mg/dL. CT scanning was performed without oral or intravenous contrast material. FINDINGS: Head and Neck: There is no roslyn hypermetabolism in the neck. The visualized portions of the brain are normal in appearance on CT. Chest: 7 mm pulmonary nodule right upper lobe not seen on CT chest July 05, 2024 2 mm pulmonary nodule right upper lobe not seen on CT chest October 15, 2023 17 mm weakly hypermetabolic pulmonary nodule left lower lobe compared to 18 mm on July 05, 2024 13 mm weakly hypermetabolic pulmonary nodule left lower lobe compared to 19 mm on July 05, 2024 Abdomen and Pelvis: There is no roslyn hypermetabolism in retroperitoneal or pelvic chains. The spleen is normal in size and FDG avidity. Musculoskeletal: Marrow uptake is within normal range. IMPRESSION: Compared with PET CT scan June 06, [address] chest July 05, 2024, new pulmonary nodules in the right upper lobe, 7 mm, 2 mm 17 mm pulmonary nodule left lower lobe compared to [address] chest July 05, 2024 13 mm pulmonary nodule left lower lobe compared to 19 mm on July 05, 2024
== END | disposition home or self-care (01) ==
PROVIDERS: PCP Physician Assistant; Referring Provider Internal Medicine Hematology & Oncology; Visit Provider Internal Medicine Hematology & Oncology
DX: R91.8 Other nonspecific abnormal finding of lung field (principal); C43.61 Malignant melanoma of right upper limb, including shoulder; C78.02 Secondary malignant neoplasm of left lung
CPT/HCPCS: 78815; A9552

== ENCOUNTER 2024-12-27 14:43 | Outpatient (RCR) | payer MEDICARE, MEDICAID, SELFPAY ==
[2024-12-26 09:03] LABS: Basophils % (Auto) 1 % (0-2.5); Eosinophils # (Auto) 0.2 Thou/mm3 (0.0-0.5); Eosinophils % (Auto) 3 % (0-10); Hematocrit 39.1 % (41.0-53.0); Immature Granulocytes % (Auto) 1 % (0-0); Immature Granulocytes Auto 0.06 Thou/mm3 (0.00-0.00); Lymphocytes % (Auto) 19 % (10-50); Mean Corpuscular HGB Conc 33.2 g/dl (31.0-37.0); Mean Corpuscular Volume 90 fL (80-100); Monocytes # (Auto) 0.6 Thou/mm3 (0.0-0.8); Monocytes % (Auto) 12 % (0-12); Neutrophils # (Auto) 3.3 Thou/mm3 (1.8-7.7); Neutrophils % (Auto) 64 % (37-80); Nucleated Red Blood Cell % 0 /100 WBC (0); Platelet Count 194 Thou/mm3 (140-440); RDW Standard Deviation 56.7 fL (35.1-43.9); Red Blood Count 4.33 Miln/mm3 (4.50-5.90); White Blood Count 5.2 Thou/mm3 (3.8-10.6)
[2024-12-26 09:30] LABS: Carcinoembryonic Antigen 2.6 ng/mL (0.0-5.0)
[2024-12-26 09:33] LABS: Alanine Aminotransferase 39 U/L (10-49); Albumin, Serum 3.9 gm/dL (3.4-4.8); Albumin/Globulin Ratio 1.4 (1.2-2.2); Alkaline Phosphatase 125 U/L (46-116); Anion Gap 9 (7-16); Aspartate Amino Transferase 52 U/L (0-34); BUN/Creatinine Ratio 10 Ratio (12-20); Bilirubin,Total 0.5 mg/dL (0.3-1.2); Blood Urea Nitrogen 11 mg/dL (9-23); Calcium 8.8 mg/dL (8.3-10.6); Calcium (Corrected) 8.9 mg/dL (8.5-10.1); Carbon Dioxide 19.3 mMol/L (20.0-31.0); Chloride 108 mMol/L (98-107); Creatinine (Component) 1.1 mg/dL (0.6-1.3); Globulin 2.7 gm/dL (2.3-3.5); Glucose 97 mg/dL (74-106); Osmolality,Calculated 271 (275-295); Potassium 4.1 mMol/L (3.4-5.1); Sodium 136 mMol/L (136-145); Total Protein 6.6 gm/dL (5.7-8.2); eGFR > 60 See Note
--- NOTE | 2025-01-03 12:38 | CTCFLWUP_ITS ---
Patient: RONY RIOS : 1960 Page 2 of 2 FOLLOW UP NOTE DATE OF SERVICE: 12/27/2024 NAME: RONY RIOS ACCOUNT: [id number] : 1960 AGE: 64 INTERVAL HISTORY: Gabriel Catherine, a male with malignant melanoma, presented for follow-up with occasional cold chills and fever. Recent PET-CT revealed 20 new pulmonary nodules in the right upper lobe and a 17mm nodule in the left lower lobe, indicating disease progression despite Mile test showing cancer level at 0.75. Treatment with dabrafenib and trametinib was continued with adjusted timing (5am/5pm). Patient was referred to [facility] in [place] for additional treatment options and to Dr. Sandoval for clinical trial consideration. Brain MRI scheduled in 3 months with Mile test repeat in January. Chief Complaint Follow-up for malignant melanoma, occasional cold chills and fever History of Present Illness Mr. Gabriel Catherine, a patient with a history of malignant melanoma, presents for follow-up of his condition and review of recent imaging results. The patient has been undergoing treatment with dabrafenib and trametinib. The patient reports experiencing occasional cold chills and fever, which typically subside after a few days of medication. He is currently taking 75 mg of trametinib, 2 tablets in the morning and 2 at night, along with 3 tablets of dabrafenib in the morning. Mr. Catherine has been advised to take Tafinlar (dabrafenib) at least one hour before or two hours after meals to ensure proper absorption. Mr. Catherine' overall health status appears to have changed since his last visit, as evidenced by the results of his recent PET-CT scan. The scan revealed new pulmonary nodules, indicating a potential progression of his condition. Despite this, the patient's cancer level as measured by the Mile test is currently at 0.75, which will be monitored for changes in the coming months. Laboratory, Imaging, and Diagnostic Test Results - PET-CT scan (12/12/2024): - 20 new pulmonary nodules in right upper lobe: 7 mm and 2 mm - 17 mm nodule in left lower lobe - Two nodules decreased in size - Two new nodules appeared - Mile test: - Cancer level: 0.75 - Previous results: - PET scan (06/06/2024): Mentioned for comparison, no specific results provided - CT chest (07/05/2024): Mentioned for comparison, no specific results provided Medical History - Malignant melanoma Medications and Supplements - Trametinib 75 mg - 2 tablets in the morning and 2 at night - Dabrafenib - 3 tablets in the morning - Take at least one hour before or two hours after a meal - Stomach medication - Take early in the morning to prevent acidity Review of Systems General: Positive for fever and chills. ONCOLOGY HISTORY: DIAGNOSIS: Malignant melanoma of right upper limb, including shoulder [ICD10] C43.61 DATE OF DIAGNOSIS: Initial diagnosis 12/09/2017 Metastatic disease confirmed on 07/19/2024 STAGE/TNM: Stage IV with recurrence in the lungs Stage IIIa BRAF mutation positive melanoma Patient was treated with dabrafenib and trametinib and had severe abdominal pain. TREATMENT HISTORY: Care?Plan Start?Date Cycle Day Intent OPDIvo 03/01/2018 1 28 Curative?(adjuvant) OPDIvo?every?2?weeks?x?1?year 08/31/2018 1 14 Curative?(adjuvant) KCL?40 07/03/2020 1 1 Palliative Pembrolizumab?alone 08/26/2024 1 21 Palliative HISTORY OF PRESENT ILLNESS: Patient is here to follow-up on the metastatic melanoma. Patient had PET/CT done on 06/06/2024 showed non-hypermetabolic 14 mm 6 mm pulmonary nodules left lower lobe, CT chest without contrast recommended. Patient had biopsy of the nodule which is consistent with metastatic melanoma. Patient is here to discuss treatment options. 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 PREVIOUS NOTE: Rony Rios is a 64-year-old male who had a Sharif's level 4, Breslow depth of invasion approximately 1.4 mm superficial spreading type malignant melanoma removed from right shoulder on 12/15/2017. Lymphocyte infiltration was present but not brisk in the tumor. On 01/11/2018 he had right axilla sentinel lymph node, right supraclavicular sentinel lymph node and wide excision of the right shoulder surgical area. No residual melanoma was found the surgical site. Right axillary sentinel lymph node was negative for metastatic disease. Right supraclavicular sentinel lymph node was positive for metastasis. MRI of the brain was done on 02/10/2018 and it was negative study. Patient also reportedly had a PET CT scan the results of which are not available to me at this time. He also had a left pelvic soft tissue mass/lymph node biopsy on 02/23/2018 which did not show any evidence of metastatic melanoma. 03/01/2018?05/10/2018: Patient received nivolumab in the adjuvant setting (12 of 26 treatments). 04/12/2018: Patient is in the clinic today for follow-up. When I saw him last time on 03/28/2018 I have requested B Raff mutation study on his melanoma sample taken on 12/16/2015. The results are available to me today. He is positive for B Yogesh V600 K mutation. 05/23/2018: In view of B Yogesh mutation positivity I have started the patient on dabrafenib and TRAMETINIB. Patient has taken these medications day before yesterday and yesterday. Since early this morning he started having significant abdominal pain as well as nausea. He has taken Tylenol with some relief. His pain is slowly getting better at this time. He does not want to take these medications any further. He denies any diarrhea. Denies any fevers. He does have reddish discoloration of his face. 06/01/2018: Patient has stopped taking dabrafenib and TRAMETINIB. His abdominal pain is resolved at this time. He does not want to take these pills again in view of the significant abdominal pain he had recently. However he would like to continue nivolumab. 06/07/2018?02/22/2019: Patient received nivolumab in the adjuvant setting. 06/17/2018: PET CT scan was negative study. 03/07/2019: Patient started noticing blisters on his left cheek. Most likely these are secondary to dermatitis caused by Opdivo. 03/28/2019: Due to new multiple blisters patient was started on prednisone 60 mg p.o. daily. Unfortunately he was not able to tolerate. 04/04/2019: Patient was started on 2 mg of prednisone p.o. daily, which was slowly tapered off with resolution of his skin blisters.. 08/02/2019: Patient had left colectomy with colo-distal sigmoid anastomosis and mobilization of splenic flexure. Surgical pathology specimen showed extensive diverticulosis without any evidence of malignancy. 11/05/2019: Ultrasound of the left side of the neck no cystic or solid masses noted. 06/28/2020: PET CT scan?negative no interval metastatic disease. 04/18/2021: PET CT scan? 08/25/2021: AST 74, ALT 84. 12/16/2021: Hepatitis C viral RNA genotype not detected. 05/28/2022: PET/CT scan? 05/27/2023: PET/CT scan 08/06/2023: CEA 2.5 11/05/2023: CEA is 2.1 02/07/2024: CEA is 2.1 05/26/2024: CEA is 1.9 06/06/2024: PET/AH-lvb-zdovhueajstzjf 14 mm 6 mm pulmonary nodules left lower lobe OTHER MEDICAL HISTORY/CONDITIONS: FAMILY HISTORY: SOCIAL HISTORY: MEDICATIONS: 1. atorvastatin - 20 mg 1 tab Daily 2. Benadryl - 25 mg Capsule As directed 3. Breo Ellipta - 200-25 mcg/dose As directed 4. clonidine - 0.1 mg 1 tab Twice a Day 5. dabrafenib - 75 mg 2 Capsule Twice a Day 6. dilTIAZem HCl - 240 mg 1 Capsule Daily 7. eszopiclone - 2 mg 1 tab Daily 8. flecainide - 100 mg Twice a Day 9. folic acid - 1 mg 1 tab Daily 10. latanoprost (PF) - 0.005 % 1 In the evening 11. Linzess - 290 mcg 1 Capsule Daily 12. losartan - 50 mg 1 tab Daily 13. methotrexate - 2.5 mg 10 tab Weekly 14. metoprolol tartrate - 50 mg Twice a Day 15. Pred - 10 mg 1 tab Daily 16. Protonix - 40 mg 1 tab twice daily 17. trametinib - 0.5 mg 3 tab Daily 18. Tylenol Extra Strength - 500 mg 2 tab Twice a Day 19. Ventolin - As directed 20. Zofran - 8 mg 1 tab Every 8 Hours Medications Last Reconciled by Susi Lundberg MA on 12/27/2024 ALLERGIES: hydrocodone-acetaminophen; hydrocodone-acetaminophen; morphine (bulk); meperidine (PF); carisoprodol; PENICILLAMINE; clindamycin HCl REVIEW OF SYSTEMS: A complete 14-point review of systems was performed and is negative except as noted in interval history. PHYSICAL EXAMINATION: VITAL SIGNS: Temperature?101.3, B/P?160/76, Oxygen?Saturation?98% Weight?173?lbs (Change?since?12/26/24:?16.4?lbs) PAIN: 6 - Severe pain ECOG Performance Status: 0 - Asymptomatic and fully active GENERAL APPEARANCE: Appears well, in no apparent distress, appropriately interactive. HEENT: Normocephalic, no temporal wasting, normal conjunctiva, no scleral icterus, normal hearing, lips without lesions, neck normal range of motion. CARDIOVASCULAR: Not assessed. PULMONARY: Normal respiratory effort, no respiratory distress or use of accessory muscles, speaking in full sentences, no tachypnea. EXTREMITIES: No pedal edema or cyanosis. SKIN: Normal skin appearance. NEUROLOGIC: Alert and oriented x4. PSHYCHIATRIC: Appropriate affect, mood normal, behavior normal, intact thought and speech. LABORATORY DATA: I have personally reviewed and interpreted each of the patient?s relevant lab tests, abnormal findings are below: Date 10/18/24 12/26/24 ??WHITE?BLOOD?COUNT?(Thou/mm3) 6.9 5.2 ??RED?BLOOD?COUNT?(Miln/mm3) 4.88 4.33?L ??HEMOGLOBIN?(gm/dl) 14.9 13.0?L ??HEMATOCRIT?(%) 44.0 39.1?L ??PLATELET?COUNT?(Thou/mm3) 208 194 ??NEUTROPHILS?%,?AUTO?(%) 61 64 ??LYMPH?%,?AUTO?(%) 28 19 ??NEUTROPHILS,?AUTO?(Thou/mm3) 4.2 3.3 ??GLUCOSE,RANDOM?(mg/dL) ? 97 ??BLOOD?UREA?NITROGEN?(mg/dL) ? 11 ??CREATININE?(mg/dL) ? 1.10 ??SODIUM?(mmol/L) ? 136 ??POTASSIUM?(mmol/L) ? 4.1 ??CHLORIDE?(mmol/L) ? 108?H ??CrCl?(CandG)?(ml/min) ? 69.06 ??AST/SGOT?(Unit/L) ? 52?H ??ALT/SGPT?(Unit/L) ? 39 ??ALKALINE?PHOSPHATASE?(Unit/L) ? 125?H ??BILIRUBIN,?TOTAL?(mg/dL) ? 0.5 ??PROTEIN?TOTAL?(gm/dl) ? 6.6 ??ALBUMIN,?SERUM?(gm/dl) ? 3.9 ??GLOBULIN?(gm/dl) ? 2.7 ??ALBUMIN/GLOBULIN?RATIO ? 1.4 ??CALCIUM,?SERUM?(mg/dL) ? 8.8 ??CALCIUM?SERUM?(CORRECTED)?(mg/dL) ? 8.9 ??CEA?(O*)?(ng/ml) ? 2.6 ASSESSMENT/PLAN: Metastatic melanoma 07/19/2024 lung nodule confirmed metastatic melanoma Gabriel Catherine, male patient with malignant melanoma, presenting for follow-up of recent PET-CT scan results and ongoing treatment management. Malignant Melanoma Assessment: Patient with known malignant melanoma undergoing treatment with dabrafenib and trametinib. Recent PET-CT scan on December 12, 2024, compared to previous imaging from May and June 2024, reveals 20 new pulmonary nodules in the right upper lobe (7 mm and 2 mm) and a 17 mm nodule in the left lower lobe. Two existing nodules have decreased in size, but two new nodules have appeared. Mile test shows a cancer level of 0.75, which will be monitored for changes in January. Patient reports experiencing occasional cold chills and fever that subside after a few days of medication. Plan: - Continue dabrafenib 3 tablets PO in the morning - Continue trametinib 75 mg, 2 tablets PO in the morning and 2 tablets PO at night - Adjust medication schedule: take tablets at 5 am and 5 pm - Take Tafinlar (dabrafenib) at least one hour before or two hours after meals - Monitor for serious febrile reactions - Refer to [facility] in [place] for potential treatment options - Refer to Dr. Sandoval in [place] for clinical trials - Schedule brain MRI in 3 months - Repeat Mile test in January to monitor cancer level - Continue to monitor growth of pulmonary nodules - Avoid taking calcium with dabrafenib and trametinib - Take stomach medication early in the morning to prevent acidity ORDERS: Order # Description [id number] Follow Up Appointment [id number] CBC + Comprehensive Metabolic Panel + CEA [id number] Lab Appointment [id number] Follow Up Appointment [id number] CBC + Comprehensive Metabolic Panel + CEA [id number] Lab Appointment [id number] Follow Up Appointment [id number] CBC + Comprehensive Metabolic Panel + CEA [id number] Lab Appointment [id number] Follow Up Appointment [id number] CBC + Comprehensive Metabolic Panel + CEA [id number] Lab Appointment [id number] MRI + Brain + With W/O Contrast [id number] Follow Up Appointment [id number] CBC + Comprehensive Metabolic Panel + CEA [id number] Lab Appointment [id number] Follow Up Appointment [id number] CBC + Comprehensive Metabolic Panel + CEA [id number] Lab Appointment [id number] Follow Up Appointment [id number] CBC + Comprehensive Metabolic Panel + CEA [id number] Lab Appointment [id number] Follow Up Appointment [id number] CBC + Comprehensive Metabolic Panel + CEA [id number] Lab Appointment [id number] Follow Up Appointment [id number] CBC + Comprehensive Metabolic Panel + CEA [id number] Lab Appointment [id number] Follow Up Appointment [id number] CBC + Comprehensive Metabolic Panel + CEA [id number] Lab Appointment [id number] Follow Up Appointment [id number] CBC + Comprehensive Metabolic Panel + CEA [id number] Lab Appointment [id number] Follow Up Appointment [id number] CBC + Comprehensive Metabolic Panel + CEA [id number] Lab Appointment [id number] Follow Up Appointment [id number] CBC + Comprehensive Metabolic Panel + CEA [id number] Lab Appointment [id number] Follow Up Appointment [id number] CBC + Comprehensive Metabolic Panel + CEA [id number] Lab Appointment [id number] Follow Up Appointment [id number] CBC + Comprehensive Metabolic Panel + CEA [id number] Lab Appointment [id number] Follow Up Appointment [id number] CBC + Comprehensive Metabolic Panel + CEA [id number] Lab Appointment [id number] Follow Up Appointment [id number] CBC + Comprehensive Metabolic Panel + CEA [id number] Lab Appointment [id number] Follow Up Appointment [id number] CBC + Comprehensive Metabolic Panel + CEA [id number] Lab Appointment [id number] Follow Up Appointment [id number] CBC + Comprehensive Metabolic Panel + CEA [id number] Lab Appointment [id number] Follow Up Appointment [id number] CBC + Comprehensive Metabolic Panel + CEA [id number] Lab Appointment [id number] Follow Up Appointment RETURN TO CLINIC: BILLING AND COMPLIANCE: I reviewed external records from providers outside my specialty as summarized above. I spent a total of 50 minutes on this patient?s care on the day of their visit excluding time spent related to any billed procedures. This time includes time spent with the patient as well as time spent documenting in the medical record, reviewing patients records and tests, obtaining history, placing orders, communicating with other healthcare professionals, counseling the patient, family or caregiver, and/or care coordination for the diagnoses above. Electronically Signed by: Khris Venegas MD T: 12:36 PM CC: Randy?Arian,VIDHI PCP: Randy Don Referring: Randy Don This document was completed utilizing speech recognition software. Grammatical errors, random word insertions, pronoun errors, and incomplete sentences are an occasional consequence of this system due to software limitations, ambient noise, and hardware issues. Any formal questions or concerns about the content, text or information contained within the body of this dictation should be directly addressed to the provider for clarification.
== END 2024-12-27 23:59 | disposition home or self-care (01) ==
LOC: SCTC 14:43
PROVIDERS: PCP Physician Assistant; Referring Provider Physician Assistant; Visit Provider Internal Medicine Hematology & Oncology
DX: C43.61 Malignant melanoma of right upper limb, including shoulder (principal); C78.02 Secondary malignant neoplasm of left lung; C78.01 Secondary malignant neoplasm of right lung
CPT/HCPCS: 36591; 80053; 82378; 85025; 99212; A4216; J1642; G0463

== ENCOUNTER 2025-01-15 14:28 | Inpatient (IN) | payer MEDICARE, MEDICAID, SELFPAY ==
[2025-01-15] VITALS (7 sets, daily range): BP systolic 75–135; BP diastolic 49–73; PULSE 71–112; RESP 16–96; TEMP 36.1–36.8; O2SAT 96–99; BMI 25.0
--- NOTE | 2025-01-15 14:54 | XR_ITS ---
Examination: AP lateral chest 2 views TECHNIQUE: Sitting AP lateral chest 2 views Date and time: January 15, 2025 1502 hours INDICATIONS: Coughing and fever today. FINDINGS: Mild prominence of ventricle No lobar pneumonia Cardiac leads including ventricular lead stable in position compared with July 19, 2024 IMPRESSION: No pneumonia or pulmonary edema
--- NOTE | 2025-01-15 14:54 | EKG_ITS ---
[facility] Test Date: 2025-01-15 Pat Name: RONY DE LA ROSA Department: Room: - Gender: Male Legal Support Specialist: : 1960 Requested By: Kiel Kruger Order Number: [id number] Reading MD: Kiel Kruger Measurements Intervals [place] Rate: 112 P: DC: QRS: 131 QRSD: 125 T: -10 QT: 339 QTc: 465 Interpretive Statements UNCERTAIN REGULAR RHYTHM POSSIBLE RIGHT VENTRICULAR HYPERTROPHY [SOME/ALL OF: PROMINENT R IN V1, LATE TRANSITION, RAD, ADAM, SSS] PROBABLE ANTERIOR MYOCARDIAL INFARCTION , PROBABLY OLD [35 ms Q WAVE IN V3/V4] POSSIBLE INFERIOR MYOCARDIAL INFARCTION , OF INDETERMINATE AGE [30 ms Q WAVE IN II/aVF] CRITICAL TEST RESULT Compared to ECG 09/18/2023 09:11:18 Atrial-paced complex(es) or rhythm no longer present Myocardial infarct finding still present /store/S0/[id number].pdf
--- NOTE | 2025-01-15 14:54 | PD.EDRME ---
Rapid Medical Screening Exam E Arrival date/time: 01/15/25 14:28 64-year-old male with history of hyperlipidemia, hypertension, atrial fibrillation, GERD presents to the emergency room with a chief complaint of cough, congestion, intermittent fevers, x 3 weeks. I have greeted and performed a focused initial assessment of this patient. A comprehensive ED assessment and evaluation of the patient, analysis of all test results, and completion of the medical decision making process will be conducted by additional ED providers. Chief Complaint: Nausea/Vomiting/Diarrhea Time Seen by Provider: 01/15/25 14:42 Vital signs: Vital Signs Temperature 98.3 F 01/15/25 14:46 Pulse Rate 112 H 01/15/25 14:46 Respiratory Rate 20 01/15/25 14:46 Blood Pressure 94/52 L 01/15/25 14:46 Pulse Oximetry (%) 99 01/15/25 14:46 Oxygen Delivery Method Room Air 01/15/25 14:46 Vital signs reviewed by provider: Yes
[2025-01-15 16:08] LABS: Basophils % (Auto) 0 % (0-2.5); Eosinophils # (Auto) 0.1 Thou/mm3 (0.0-0.5); Eosinophils % (Auto) 0 % (0-10); Hematocrit 35.8 % (41.0-53.0); Hemoglobin 13.1 g/dL (13.5-16.0); Immature Granulocytes % (Auto) 1 % (0-0); Immature Granulocytes Auto 0.08 Thou/mm3 (0.00-0.00); Lymphocytes # (Auto) 0.5 Thou/mm3 (1.0-4.8); Lymphocytes % (Auto) 4 % (10-50); Mean Corpuscular HGB Conc 36.6 g/dl (31.0-37.0); Mean Corpuscular Hemoglobin 30.4 pg (25.0-35.0); Mean Corpuscular Volume 83 fL (80-100); Monocytes # (Auto) 0.7 Thou/mm3 (0.0-0.8); Monocytes % (Auto) 5 % (0-12); Neutrophils # (Auto) 11.5 Thou/mm3 (1.8-7.7); Neutrophils % (Auto) 90 % (37-80); Nucleated Red Blood Cell # 0.03 Thou/mm3 (0.00-0.00); Nucleated Red Blood Cell % 0 /100 WBC (0); Platelet Count 153 Thou/mm3 (140-440); RDW Standard Deviation 51.4 fL (35.1-43.9); Red Blood Count 4.31 Miln/mm3 (4.50-5.90); White Blood Count 12.9 Thou/mm3 (3.8-10.6)
[2025-01-15 16:17] LABS: INR 1.1 (0.9-1.3); Partial Thromboplastin Time 39.9 Seconds (22.0-36.0); Prothrombin Time 12.3 Seconds (9.0-12.2)
[2025-01-15 16:19] LABS: Alanine Aminotransferase 125 U/L (10-49); Albumin, Serum 3.9 gm/dL (3.4-4.8); Albumin/Globulin Ratio 1.2 (1.2-2.2); Alkaline Phosphatase 137 U/L (46-116); Anion Gap 19 (7-16); Aspartate Amino Transferase 600 U/L (0-34); BUN/Creatinine Ratio 11 Ratio (12-20); Bilirubin,Total 0.9 mg/dL (0.3-1.2); Blood Urea Nitrogen 64 mg/dL (9-23); Calcium 8.4 mg/dL (8.3-10.6); Calcium (Corrected) 8.5 mg/dL (8.5-10.1); Chloride 91 mMol/L (98-107); Globulin 3.3 gm/dL (2.3-3.5); Glucose 102 mg/dL (74-106); Osmolality,Calculated 266 (275-295); Potassium 4.1 mMol/L (3.4-5.1); Sodium 123 mMol/L (136-145); Total Protein 7.2 gm/dL (5.7-8.2); eGFR 10 See Note
[2025-01-15 16:21] LABS: Carbon Dioxide 12.8 mMol/L (20.0-31.0)
[2025-01-15 16:22] LABS: Troponin I 0.396 ng/mL (0.0-0.045)
[2025-01-15 16:30] LABS: B-Type Natriuretic Peptide < 20 pg/mL (0-100)
[2025-01-15 16:36] LABS: Collection Type, Urine Clean Catch
[2025-01-15 17:37] LABS: Amorphous Crystals,Urine Present (Absent); Bilirubin,Urine Negative (Negative); Blood,Urine 3+ (Negative); Color,Urine Drk-Yellow (Lt Yel-Yel); Culture Indicated,Urine Not Indicated; Glucose, Urine Trace (Negative); Ketones,Urine Negative (Negative); Leukocyte Esterase,Urine Negative (Negative); Nitrite,Urine Negative (Negative); Protein,Urine 1+ (Neg - Trace); RBC,Urine 8 /hpf (0-3); Specific Gravity,Urine 1.021 (1.001-1.035); Squamous Epithelial Cell,Urine 1 /hpf (0-5); Transitional Epi Cells,Urine 5 /hpf (0-5); Urobilinogen,Urine Negative mg/dL (0.0-1.0); WBC,Urine 7 /hpf (0-5)
[2025-01-15 17:44] LABS: Clarity,Urine Turbid (Clear/Hazy)
[2025-01-15] MEDS: SODIUM CHLORIDE 0.9% 1000 ML 1,000 ML 999 ML IV (17:57)
--- NOTE | 2025-01-15 18:10 | PD.EDADULT ---
ED General RME/HPI General Chief complaint: Nausea/Vomiting/Diarrhea Stated complaint: CHILLS, N/V X2 DAYS, WEAKNESS Time Seen by Provider: 01/15/25 14:42 Arrival date/time: 01/15/25 14:28 CC: Cough, congestion, HPI ongoing for 3 weeks. The patient is being treated for melanoma with chemotherapy patient noted to be tachycardic. Has a history of GERD and A-fib hypertension hyperlipidemia. RME / HPI RME / HPI narrative: 01/15/25 14:28 64-year-old male with history of hyperlipidemia, hypertension, atrial fibrillation, GERD presents to the emergency room with a chief complaint of cough, congestion, intermittent fevers, x 3 weeks. I have greeted and performed a focused initial assessment of this patient. A comprehensive ED assessment and evaluation of the patient, analysis of all test results, and completion of the medical decision making process will be conducted by additional ED providers. Related Data Home Medications ?Medication ?Instructions ?Recorded ?Confirmed losartan 100 mg tablet 50 mg PO QDAY #0 tabs 11/24/16 07/19/24 flecainide 100 mg tablet 100 mg PO Q12H #0 tabs 01/19/17 07/19/24 eszopiclone 2 mg tablet (Lunesta) 2 mg PO HS PRN SLEEPLESSNESS #0 05/27/17 07/19/24 tabs metoprolol succinate 25 mg 50 mg PO BID 10/26/17 07/19/24 tablet,extended release 24 hr albuterol sulfate 90 mcg/actuation 1 puff inhalation PRN PRN 11/11/17 07/19/24 aerosol inhaler (Ventolin HFA) Respiratory Distress acetaminophen 500 mg tablet 500 mg PO BID 02/01/18 07/19/24 (Tylenol Extra Strength) diphenhydramine HCl 25 mg capsule 25 mg PO Q6H PRN Skin Irritation 12/06/20 07/19/24 (Benadryl) folic acid 1 mg tablet 1 mg PO QDAY 12/06/20 07/19/24 methotrexate sodium 2.5 mg tablet 25 mg PO QOWEEK 12/06/20 07/19/24 pantoprazole 40 mg tablet,delayed 40 mg PO QDAY 12/06/20 07/19/24 release atorvastatin 20 mg tablet 20 mg PO QDAY 06/10/23 07/19/24 clonidine HCl 0.1 mg tablet 0.1 mg PO BID 06/10/23 07/19/24 diltiazem HCl 240 mg capsule,24 240 mg PO QAM 07/19/24 07/19/24 hr,extended release fluticasone furoate 200 1 inh inhalation Q24H 07/19/24 07/19/24 mcg-vilanterol 25 mcg/dose inhalation powder (Breo Ellipta) linaclotide 290 mcg capsule 290 mcg PO QDAY 07/19/24 07/19/24 (Linzess) Allergies Allergy/AdvReac Type Severity Reaction Status Date / Time carisoprodol Allergy Severe Rash Verified 01/15/25 14:33 fluticasone Allergy Severe Rash Verified 01/15/25 14:33 hydrocodone Allergy Severe PSYCHOLOGIC Verified 01/15/25 14:33 CHANGES BEHAVIOR/ levalbuterol Allergy Severe Rash Verified 01/15/25 14:33 methocarbamol Allergy Severe Rash Verified 01/15/25 14:33 montelukast Allergy Severe Rash Verified 01/15/25 14:33 oxycodone Allergy Severe Rash Verified 01/15/25 14:33 propoxyphene Allergy Severe Rash Verified 01/15/25 14:33 pseudoephedrine Allergy Severe Rash Verified 01/15/25 14:33 chlorthalidone Allergy Intermediate Rash Verified 01/15/25 14:33 hydralazine Allergy Intermediate Irritable Verified 01/15/25 14:33 penicillamine Allergy Intermediate Rash Verified 01/15/25 14:33 Penicillins Allergy Intermediate Rash Verified 01/15/25 14:33 spironolactone Allergy Intermediate Irritable Verified 01/15/25 14:33 hydroxyzine Allergy Mild WIRED Verified 01/15/25 14:33 morphine Allergy Mild ANXIOUS, Verified 01/15/25 14:33 RASH prednisone Allergy Mild WIRED Verified 01/15/25 14:33 codeine Allergy Unknown BEHAVIOR Verified 01/15/25 14:33 CHANGES, RESTLESS gabapentin AdvReac Severe ALTERS MOOD Verified 01/15/25 14:33 tramadol AdvReac Severe ALTERS Verified 01/15/25 14:33 MOOD, CAN NOT STAY STILL meperidine AdvReac Intermediate Rash Verified 01/15/25 14:33 vancomycin AdvReac Intermediate Rash Verified 01/15/25 14:33 Review of Systems Review of Systems Narrative Review of Systems: GEN: No fever, no chills, no weight loss EYES: No discharge, no visual changes, no pain HEENT: No ear pain, no congestion, no sore throat PULM: No shortness of breath, + cough, no congestion CV: No chest pain, no dyspnea on exertion, no palpitations GI: No nausea, no vomiting, no diarrhea, no pain, no constipation : No frequency, no urgency, no dysuria MUSC/SKEL: No joint pain, no back pain SKIN: No rash PSYCH: No hallucinations, no depression HEME/LYMPH: No easy bleeding or bruising tendencies NEURO: No weakness, no headache Past Medical History Past Medical History NEUROLOGIC: Negative Neurological Disorders or Seizures CARDIAC: Positive Cardiac Disorders, Cardiac Arrhythmia, Atrial Fibrillation, Hypercholesterolemia and Hypertension; Negative Congestive Heart Failure RESPIRATORY: Positive Asthma; Negative Chronic Obstructive Pulmonary Disease (COPD) GASTROINTESTINAL: Positive Gastrointestinal Disorders, Hepatitis (C was treated), Diverticulitis, Ulcer, Gastroesophageal Reflux Disease and Obesity GENITOURINARY: Positive Inguinal Hernia; Negative Genitourinary Disorders, Renal Disease or Dialysis REPRODUCTIVE: Negative Testicular Cancer MUSCULOSKELETAL: Positive Musculoskeletal Disorders, Arthritis and Carpal Tunnel Syndrome (right); Negative Fractures ENT: Negative Ear Infection ENDOCRINE: Negative Endocrine Disorders, Diabetes Mellitus Type 1 or Diabetes Mellitus Type 2 HEMATOLOGIC: Positive Anemia; Negative Blood Disorders or Sickle Cell Disease PSYCHO/SOCIAL: Positive Anxiety OTHER HISTORY: Positive Hospitalization (surgery), Falls, Blood Transfusions, Chicken Pox and Cancer; Negative Autoimmune Disease, Shingles, Blood Transfusion Reaction, Anesthesia Reactions or Testicular Cancer Family History FAMILY HISTORY: Positive Family Respiratory Disorders, Family Cancer (lung) and Family Surgery; Negative Family Psychiatric Problems, Family Cardiac Disorders, Family Gastrointestinal Problems or Family Anesthesia Reaction Surgical History SURGICAL: Positive Cardiac Surgery, Cardiac Catheterization, Pacemaker, Angiogram, Nose Surgery (septoplasty), Throat Surgery, Abdominal Surgery, Bowel Surgery (colon resection) and Joint Replacement; Negative Endocrine Surgery Social History SMOKING STATUS: Never smoker SECOND HAND EXPOSURE: Yes SUBSTANCE USE: does not use ED Exam Narrative Physical exam: [General: Appears not in any acute distress Head normocephalic HEENT: Within acceptable limits Neck is supple nontender Chest equal chest rise nontender to palpation Respiratory: Clear to auscultation no wheezes crackles or rubs, week of nonproductive dry cough CV: Rate rhythm is regular, tachycardic, no murmurs rubs or clicks Abdomen is soft nontender no masses positive bowel sounds all 4 quadrants Back: No CVA tenderness no spinous process tenderness from cervical spine thoracic and lumbar spine Skin: Intact no petechiae rash induration ulceration or crepitus Extremities: Moving all extremity against resistance cap refill less than 2 seconds neurosensory intact Neuro: Awake alert oriented x2, person and place, Glascow coma 15 no focal deficits] Course Course Course Narrative: Acute renal failure with elevated troponin weak cough. Patient laboratory shows a leukocytosis stable anemia acute renal failure with a BUN of 64 and a creatinine of 6.0 significant and worsening in the last 3 weeks. Chest x-ray is negative CT of the chest shows small nodules but no acute pneumonia. Lactic is 1.4 creatinine is 203. The patient does have a gap. Patient's case discussed with Dr. Pritchard, consult with Dr Rabago will admit the patient under Dr. Cuadra attending. Quality Measures none Orders Category Date Time Status Bedside COVID-19 Antigen Test NOW Care 01/15/25 14:54 Active Bedside COVID-19 Antigen Test NOW Care 01/15/25 19:49 Completed Bedside Influenza A&B Antigen Test NOW Care 01/15/25 14:54 Completed EKG (ED ONLY) *Do not use* NOW Care 01/15/25 14:54 Completed EKG (ED ONLY) *Do not use* NOW Care 01/15/25 18:58 Completed Miscellaneous Nursing Order NOW Care 01/15/25 21:04 Active Consult to Nephrology Stat Cons 01/15/25 19:[address] abdomen pelvis wo con Stat Exams 01/15/25 20:[address] chest wo con Stat Exams 01/15/25 18:16 Completed EKG (ED Only) Stat Exams 01/15/25 14:54 Draft EKG (ED Only) Stat Exams 01/15/25 18:58 Draft XR chest 2V Stat Exams 01/15/25 14:54 Completed ABG [Arterial Blood Gas] Stat Lab 01/15/25 20:26 Completed BNP [B-Type Natriuretic Peptide] Stat Lab 01/15/25 15:48 Completed CBC Stat Lab 01/15/25 15:48 Completed CMP [Comprehensive Metabolic Panel] Stat Lab 01/15/25 15:48 Completed Lactic Acid [Lactate (Lactic Acid)] Stat Lab 01/15/25 18:10 Completed PT [Prothrombin Time with INR] Stat Lab 01/15/25 15:48 Completed PTT [Partial Thromboplastin Time] Stat Lab 01/15/25 15:48 Completed Procalcitonin Stat Lab 01/15/25 18:10 Completed Troponin I Stat Lab 01/15/25 15:48 Completed Troponin I Stat Lab 01/15/25 18:10 Completed UA, C/S IF [Urinalysis, C/S if Indicated] Stat Lab 01/15/25 16:30 Completed Aspirin Chew Med 01/15/25 18:58 Discontinued 324 mg PO X1 ONE Ondansetron Inj [Zofran Inj] Med 01/15/25 18:49 Discontinued 4 mg IV X1 ONE Ringers Lactated 1000 ml [Lactated Ringers] 1,000 ml Med 01/15/25 19:21 Discontinued IV 999 mls/hr Sodium Chloride 0.9% 1000 ml [Ns] 1,000 ml Med 01/15/25 17:43 Discontinued IV 999 mls/hr cefTRIAXone/D5w 1gm IV premix [Rocephin/D5w 1gm IV Med 01/15/25 18:14 Discontinued premix] 1 gm in 50 ml IV X1 Vital Signs Vital signs: Vital Signs Temperature 98.3 F 01/15/25 14:46 Pulse Rate 112 H 01/15/25 14:46 Respiratory Rate 20 01/15/25 14:46 Blood Pressure 94/52 L 01/15/25 14:46 Pulse Oximetry (%) 99 01/15/25 14:46 Oxygen Delivery Method Room Air 01/15/25 14:46 Discharge Plan Plan Patient Disposition: Admit Acute Care w/in Hospital Patient condition on transfer: Stable Problem List Clinical Impression: Acute renal failure, Hyponatremia, Elevated troponin MDM Clinical Information Provided by: patient Medical Records reviewed [facility] Meds/Rx considered, not ordered None Labs/Rad/Tests considered, not ordered None Chronic Illness/Social Conditions Explain: Melanoma on chemotherapy EKG EKG not done EKG Interpretation EKG #1: EKG Interpretation: EKG performed at 1457 shows a ventricular rate of 112 QRS of 125 QTc of 408 this is A-fib with nonspecific ST segment elevations. When compared to an old EKG August 2023 there are significant morphology changes but rhythm is unchanged. Labs Labs: interpreted by ky Lab(s) Interpretation(s): CBC shows leukocytosis of 12.9 H&H of 13.1 and 35.8 respectively with platelets at 153. Coags show PT of 12.3 INR of 1.1 PTT of 39.9 Chemistries sodium 123 potassium of 4.1 chloride of 91 CO2 of 12.8 gap of 19 BUN of 64 creatinine of 6 AST of 600 ALT of 125 alk phos 137 T. bili at 0.9 Troponin at 0.396 note all previous troponins are negative BNP is negative Urine is turbid 1+ protein 3+ blood 8 RBC 7 WBCs and foremost crystals present no bacteria. Medication Administration(s) Medication Administration History Acetaminophen (Acetaminophen 325 Mg Tablet) 650 mg PO Q6H PRN PRN Reason: Fever >100.3 or pain Stop: 02/14/25 21:10 Heparin Sodium (Porcine) (Heparin Sod Inj 5000 Unit/Ml Vial) 5,000 unit SC Q8HR GILBERT Stop: 01/29/25 21:59 Ceftriaxone Sodium/Dextrose (Rocephin/D5w 1gm Iv Premix) 1 gm in 50 mls @ 100 mls/hr IV QDAY GILBERT Stop: 01/23/25 08:59 Azithromycin 500 mg/ Sodium (Chloride) 250 mls @ 250 mls/hr IV QDAY GILBERT Stop: 01/22/25 21:19 Azithromycin 500 mg/ Sodium (Chloride) 250 mls @ 250 mls/hr IV X1 ONE Stop: 01/15/25 22:44 Last Admin: 01/15/25 21:44 Dose: 250 mls/hr Documented By: MARCY Ondansetron HCl (Ondansetron Inj 2 Mg/Ml Inj 2 Ml) 4 mg IV Q6H PRN; Protocol PRN Reason: NAUSEA OR VOMITING Stop: 02/14/25 21:10 Pharmacy Consult (Pharmacy Renal Dose Adjustment 1 Ea) 1 each XX PRN PRN PRN Reason: CONSULT Stop: 02/14/25 21:15 Sennosides (Senna Tablet) 1 tab PO QDAY PRN; Protocol PRN Reason: constipation Stop: 02/14/25 21:10 Discontinued Medications Aspirin (Aspirin 81 Mg Chew) 324 mg PO X1 ONE Stop: 01/15/25 18:59 Last Admin: 01/15/25 19:27 Dose: 324 mg Documented By: MARCY Sodium Chloride (Ns) 1,000 mls @ 999 mls/hr IV .Q1H1M ONE Stop: 01/15/25 18:43 Last Infusion: 01/15/25 19:23 Dose: Infused Documented By: Admin: 01/15/25 17:57 Dose: 999 mls/hr Documented By: FRANCESCO Ceftriaxone Sodium/Dextrose (Rocephin/D5w 1gm Iv Premix) 1 gm in 50 mls @ 100 mls/hr IV X1 ONE Stop: 01/15/25 18:43 Last Infusion: 01/15/25 19:23 Dose: Infused Documented By: Admin: 01/15/25 18:45 Dose: 100 mls/hr Documented By: GENIA Lactated Ringer's (Lactated Ringers) 1,000 mls @ 999 mls/hr IV .Q1H1M ONE Stop: 01/15/25 20:21 Last Infusion: 01/15/25 20:29 Dose: Infused Documented By: Admin: 01/15/25 19:27 Dose: 999 mls/hr Documented By: MARCY Ondansetron HCl (Ondansetron Inj 2 Mg/Ml Inj 2 Ml) 4 mg IV X1 ONE; Protocol Stop: 01/15/25 18:50 Last Admin: 01/15/25 18:55 Dose: 4 mg Documented By: GENIA
--- NOTE | 2025-01-15 18:11 | PC.NURSE ---
PT CAME IN FOR COLD CHILLS. PT DOES STATE A HISTORY OF CA IN THE LUNGS. PT HAS DRY HEAVES THAT OCCUR THROUGHOUT THE DAY. PT CALLED THE [facility] AND THEY RECOMMENDED TO COME IN FOR EVAL. PT STATES TO HAVE A TEMP THIS MORNING ON 101.3. PT TOOK TYLENOL FOR THE FEVER. PT IS A/O AND ANSWERING QUESTIONS APPROPRIATELY. CALL LIGHT WITH IN REACH.
--- NOTE | 2025-01-15 18:16 | XR_ITS ---
Examination: CT chest, without intravenous contrast. Sagittal and coronal 2-D reconstructions. Exam date and time: 05/18/2025 1829 hours INDICATIONS: Coughing 2 days with leukocytosis, diagnosis malignant melanoma CTDI:vol (mGy) 10.9 DLP: (mGycm) 331 Technique: Multiple 3.0 mm axial sections of the chest to been obtained. Bone and lung density settings are obtained. Sagittal and coronal 2-D reconstructions have been obtained. Low dose protocols were performed. One or more of the following dose reduction techniques were used; automated exposure control, adjustment of the mA and/or KV according to patient size, use of iterative reconstruction technique. Findings: No thoracic aortic aneurysm dilatation Pulmonary artery segments are not enlarged Mild enlargement left ventricle No paratracheal tracheobronchial or bronchopulmonary adenopathy 14 mm pulmonary nodule and adjacent 15 mm pulmonary nodule left lower lobe No lobar pneumonia or pulmonary edema No visualized liver or splenic lesions Absent gallbladder No pancreatic or adrenal mass IMPRESSION: 14 mm, 15 mm pulmonary nodules left lower lobe No pneumonia or pulmonary edema
[2025-01-15 18:18] LABS: Lactate (Lactic Acid) 1.4 mMol/L (0.4-2.0)
--- NOTE | 2025-01-15 18:24 | PC.NURSE ---
PT TAKEN TO CT VIA [facility]
[2025-01-15] MEDS: cefTRIAXone/D5w 1gm IV premix 1 GM/50 ML BAG IV (18:45)
[2025-01-15] MEDS: ONDANSETRON INJ 2 MG/ML INJ 2 ML 4 MG IV (18:55)
--- NOTE | 2025-01-15 18:58 | EKG_ITS ---
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1960 Requested By: Ethan Cruz Order Number: [id number] Reading MD: Ethan Cruz Measurements Intervals [place] Rate: 80 P: 40 MT: 220 QRS: -13 QRSD: 139 T: -24 QT: 293 QTc: 340 Interpretive Statements SINUS RHYTHM WITH FIRST DEGREE AV BLOCK INTRAVENTRICULAR CONDUCTION DELAY [130+ ms QRS DURATION] INFERIOR MYOCARDIAL INFARCTION , PROBABLY OLD [40+ ms Q WAVE AND/OR ST/T ABNORMALITY IN II/aVF] ANTEROSEPTAL MYOCARDIAL INFARCTION , OF INDETERMINATE AGE [40+ ms Q WAVE IN V1-V4] Compared to ECG 01/15/2025 14:57:12 First degree AV block now present Intraventricular conduction delay now present Myocardial infarct finding still present /store/S0/[id number]/ecg/[id number].pdf
[2025-01-15 19:08] LABS: Procalcitonin 203.73 ng/ml (0.0-0.49)
[2025-01-15 19:11] LABS: Troponin I 0.407 ng/mL (0.0-0.045)
[2025-01-15] MEDS: ASPIRIN 81 MG CHEW 324 MG PO (19:27)
[2025-01-15] MEDS: RINGERS LACTATED 1000 ML 1,000 ML 999 ML IV (19:27)
--- NOTE | 2025-01-15 20:19 | XR_ITS ---
Examination: CT abdomen and pelvis without contrast. Coronal 3-D reconstructions. Sagittal 2-D reconstructions. Date and time of exam:January 15, 2025 at 2033 hours Comparison December 12, 2024 INDICATIONS: Mid abdominal pain nausea vomiting beginning 2 days ago, diagnosis malignant melanoma CTDI: vol (mGy): 7.37 DLP: (mGycm): 410 Technique: Axial images of the abdomen have been obtained, 3 mm slice thickness Intravenous contrast material has not been administered. Low dose protocols were performed. One or more of the following dose reduction techniques were used; automated exposure control, adjustment of the mA and/or KV according to patient size, use of iterative reconstruction technique. Findings: No focal liver or splenic lesions Absent gallbladder No pancreatic or adrenal mass Perinephric stranding No renal or ureteral calculi, no hydronephrosis No bowel obstruction Normal appendix No diverticulitis, scattered colonic diverticulosis Contracted urinary bladder No prostatomegaly Extensive lumbar fusion with satisfactory alignment IMPRESSION: Mild perinephric stranding, consider urinary tract infection No liver lesions Normal appendix No bowel obstruction or diverticulitis
[2025-01-15 20:32] LABS: Inspired Oxygen, FIO2 21 %
--- NOTE | 2025-01-15 20:34 | ESHP_ITS ---
<Statement entered by Enrique Cuadra MD - 01/16/25 13:32> I have discussed and was present for the essential components of the history, physical examination, diagnosis, and treatment plan with the resident. I agree with the patient's care as documented by the resident and amended herein by me. Enrique Cuadra MD FACP. Documentation for date of: 01/15/25 HPI History of Present Illness Chief complaint: dry cough History of present illness: Florin Rios is 64 yr male with PMH of hypertension, hyperlipidemia, A-fib, malignant melanoma with mets to the lung presenting to ED due to dry cough chills for the past 1 week. Patient stated that he has not had any recent travel or around any sick contacts. Mostly stays at home with sedentary lifestyle. Is currently taking dabrafenib and trametinib for his melanoma and follows oncology Dr. Venegas outpatient. He endorses decreased water intake, decreased urination, and diarrhea for past 1 week. He has lost approximately 20lbs in time that he can't recall. (past 6mo?) He denies any chest pain, abdominal pain, headache, shortness of breath, dysuria, excessive fatigue. In ED, BP 94/52, tachy 112, RR 20, afebrile. Leukocytosis 13, hyponatremia 123, potassium 4.1, hypochloremic metabolic acidosis with bicarb 13, elevated anion gap 19, CK >1300, BHB 1.9, BUN 64, Cr 6.0, GFR 10, LA 1.4, pro trent 203, AST 600, ALT 125, elevated trops peaked at 0.407. CXR negative. CT chest showed two lung nodules 14 mm, 15 mm pulmonary nodules left lower lobe. CT a/P benign with no liver lesions or stones. He was given 1 L NS, rocefin, zofran, asa 324mg. Dr. Rabago was consulted for CRIS. Patient will be admitted for management of rhabdomyolysis, CRIS. PMH: as noted above PSH: Pacemaker, spinal cord stimulator, loop recorder 2016, back surgery, carpal tunnel surgery, laparoscopic cholecystectomy FamHx: HTN mother and father Social: Lives in [place], denies smoking, denies drinking. Meds: reviewed Allergies: Reviewed Review of Systems Review of Systems Systems Reviewed: All systems reviewed, normal except as documented Exam Vital Signs Temp Pulse Resp BP Pulse Ox O2 Del Method 97.6 F 83 16 105/51 L 99 Room Air 01/15/25 17:25 01/15/25 19:29 01/15/25 19:29 01/15/25 19:29 01/15/25 19:29 01/15/25 19:29 Narrative Exam General: Elderly male, No acute distress, cooperative HEENT: NCAT, No JVD noted. Mucosa dry. Pupils are equal and reactive to light bilaterally Cardiovascular: Normal S1 and S2. Regular rate and rhythm. Respiratory: Lungs are clear to auscultation bilaterally. No wheezing or crackles heard. Abdomen: Soft, nontender, not distended, normal bowel sounds. Abdominal scar from surgery. Skin: Warm to touch, dry, no rashes noted, scar on right shoulder from melanoma surgery. Musculoskeletal: No gross injuries. Able to move all 4 extremities. No pitting edema Neuro: Alert and oriented x3. No focal neuro deficits. Psych: Normal affect and mood Results: Labs 01/15/25 15:48 01/15/25 15:48 Labs: Short CBC 01/15/25 Range/Units 15:48 WBC 12.9 H (3.8-10.6) Thou/mm3 Hgb 13.1 L (13.5-16.0) g/dL Hct 35.8 L (41.0-53.0) % Plt Count 153 D (140-440) Thou/mm3 BMP 01/15/25 15:48 Sodium 123 L Potassium 4.1 Chloride 91 L Carbon Dioxide 12.8 L* BUN 64 H Creatinine 6.0 H* Glucose 102 Calcium 8.4 Cardiac Enzymes 01/15/25 01/15/25 Range/Units 15:48 18:10 Troponin I 0.396 H* 0.407 H* (0.0-0.045) ng/mL Liver Function 01/15/25 Range/Units 15:48 Total Bilirubin 0.9 (0.3-1.2) mg/dL AST 600 H* (0-34) U/L ALT 125 H (10-49) U/L Alkaline Phosphatase 137 H (46-116) U/L Albumin 3.9 (3.4-4.8) gm/dL Urine 01/15/25 Range/Units 16:30 Urine Color Drk-Yellow A (Lt Yel-Yel) Urine Clarity Turbid A (Clear/Hazy) Urine pH 5.0 (5.0-7.0) Ur Specific [place] 1.021 (1.001-1.035) Urine Protein 1+ A (Neg - Trace) Urine Glucose (UA) Trace (Negative) Quality Measures Quality Measures VTE prophylaxis Medications Home Medications and Allergies Home Medications ?Medication ?Instructions ?Recorded ?Confirmed ?Type losartan 100 mg tablet 50 mg PO BID #0 tabs 7 01/15/25 History flecainide 100 mg tablet 100 mg PO Q12H #0 tabs 01/1901/15/25 History eszopiclone 2 mg tablet (Lunesta) 2 mg PO HS PRN SLEEP LESSNESS #0 05/27/17 01/15/25 History tabs metoprolol succinate 25 mg 50 mg PO BID 10/26/1701/15 History tablet,extended release 24 hr acetaminophen 500 mg tablet 1,000 mg PO BID PRN fever or pain 02/01/18 01/15/25 History (Tylenol Extra Strength) diphenhydramine HCl 25 mg capsule 25 mg PO Q6H PRN Ski n Irritation 12/06/20 01/15/25 History (Benadryl) methotrexate sodium 2.5 mg tablet 25 mg PO QWEEK 12/0601/15/25 History pantoprazole 40 mg tablet,delayed 40 mg PO Q12H 01/15/25 History release atorvastatin 20 mg tablet 20 mg PO QDAY 06/10/2301/15 History clonidine HCl 0.1 mg tablet 0.1 mg PO BID 06/10/23 History diltiazem HCl 240 mg capsule,24 240 mg PO QAM 07/19/24 01/15/25 History hr,extended release fluticasone furoate 200 1 inh inhalation Q24H 01/15/25 History mcg-vilanterol 25 mcg/dose inhalation powder (Breo Ellipta) linaclotide 290 mcg capsule 290 mcg PO QDAY 07/19/24 0 01/15/25 History (Linzess) dabrafenib 75 mg capsule (Tafinlar) 150 mg PO Q12H 01/15/25 History fluticasone furoate 200 1 inh inhalation QDAY 01/15/25 History mcg-vilanterol 25 mcg/dose inhalation powder (Breo Ellipta) folic acid 800 mcg tablet 800 mcg PO QDAY 01/15/25 History latanoprost 0.005 % eye drops 1 drp ophthalmic (eye) Q DAY 01/15/25 01/15/25 History trametinib 0.5 mg tablet (Mekinist) 1.5 mg PO QDAY 01/15/25 History Allergies Allergy/AdvReac Type Severity Reaction Status Date / Time carisoprodol Allergy Severe Rash Verified 01/15/25 14:33 fluticasone Allergy Severe Rash Verified 01/15/25 14:33 hydrocodone Allergy Severe PSYCHOLOGIC Verified 01/15/25 14:33 CHANGES BEHAVIOR/ levalbuterol Allergy Severe Rash Verified 01/15/25 14:33 methocarbamol Allergy Severe Rash Verified 01/15/25 14:33 montelukast Allergy Severe Rash Verified 01/15/25 14:33 oxycodone Allergy Severe Rash Verified 01/15/25 14:33 propoxyphene Allergy Severe Rash Verified 01/15/25 14:33 pseudoephedrine Allergy Severe Rash Verified 01/15/25 14:33 chlorthalidone Allergy Intermediate Rash Verified 01/15/25 14:33 hydralazine Allergy Intermediate Irritable Verified 01/15/25 14:33 penicillamine Allergy Intermediate Rash Verified 01/15/25 14:33 Penicillins Allergy Intermediate Rash Verified 01/15/25 14:33 spironolactone Allergy Intermediate Irritable Verified 01/15/25 14:33 hydroxyzine Allergy Mild WIRED Verified 01/15/25 14:33 morphine Allergy Mild ANXIOUS, Verified 01/15/25 14:33 RASH prednisone Allergy Mild WIRED Verified 01/15/25 14:33 codeine Allergy Unknown BEHAVIOR Verified 01/15/25 14:33 CHANGES, RESTLESS gabapentin AdvReac Severe ALTERS MOOD Verified 01/15/25 14:33 tramadol AdvReac Severe ALTERS Verified 01/15/25 14:33 MOOD, CAN NOT STAY STILL meperidine AdvReac Intermediate Rash Verified 01/15/25 14:33 vancomycin AdvReac Intermediate Rash Verified 01/15/25 14:33 Visit Medications Discontinued Medications Aspirin (Aspirin 81 Mg Chew) 324 mg PO X1 ONE Stop: 05/19/25 18:59 Last Admin: 01/15/25 19:27 Dose: 324 mg Sodium Chloride (Ns) 1,000 mls @ 999 mls/hr IV .Q1H1M ONE Stop: 01/15/25 18:43 Last Infusion: 01/15/25 19:23 Dose: Infused Ceftriaxone Sodium/Dextrose (Rocephin/D5w 1gm Iv Premix) 1 gm in 50 mls @ 100 mls/hr IV X1 ONE Stop: 01/15/25 18:43 Last Infusion: 01/15/25 19:23 Dose: Infused Lactated Ringer's (Lactated Ringers) 1,000 mls @ 999 mls/hr IV .Q1H1M ONE Stop: 01/15/25 20:21 Last Infusion: 01/15/25 20:29 Dose: Infused Ondansetron HCl (Ondansetron Inj 2 Mg/Ml Inj 2 Ml) 4 mg IV X1 ONE; Protocol Stop: 01/15/25 18:50 Last Admin: 01/15/25 18:55 Dose: 4 mg Assessment & Plan Plan Florin Rios is 64 yr male with PMH of hypertension, hyperlipidemia, A-fib, malignant melanoma with mets to the lung presenting to ED due to dry cough chills for the past 1 week. Patient stated that he has not had any recent travel or around any sick contacts. Dr. Rabago was consulted for CRIS. Patient will be admitted for management of rhabdomyolysis, CRIS. #Rhabdomyolysis CK >1300. Possibly due to SE of cancer medication, atovastatin however he denied any muscle pain. UA positive for blood but RBCs also present. -continue fluids -will increase rate of LR to 200cc/hr if CK >2000. -monitor urine output -follow up with lab for exact CK levels -hold statin #CRIS BUN 64, Cr 6.0 on admisison, BUN/Cr 11 indicating intra renal cause, rhabdomyolysis may also be causing CRIS. Possible component of prerenal in setting of hypotension with hypoperfusion and as evidenced by elevated LFTs. However no source of infection. Blood pressure did improve with fluids. -Dr. Rabago consulted -maintenance fluids LR -avoid nephrotoxic agents -daily CMP #AGMA AG 19, bicarb 13, ABG ph 7.29, Co2 23. BHB 1.9. Appropriate CO2 compensation 26?30 base of Romero formula. Ddx: ketosis, uremia -continue fluids -f/u on repeat BMP #Transaminitis AST 600, ALT 125. Seen as side effect from Trametinib vs in setting of rhabo. -continue to monitor #NSTEMI II Troponins 0.396--> 0.407. Denies any chest pain. -trend troponins #Hx malignant melanoma Takes Trametinib and Dabrafenib. Follows Dr. Dela Cruz outpatient. -consider holding during hospitalization in setting of transaminitis, CRIS - Day team to consider possible oncology consult #hx HTN #hx HLD #Hx atrial fibrillation -med rec pending Health maintenance: Dispo: tele, CRIS FEN: DVT prophylaxis: Subcu heparin CODE STATUS: Full code The patient's management plan was discussed with my attending physician Dr. Cuadra. Verona Watkins, PGY-1
[2025-01-15 20:36] LABS: Base Excess -14 (-3-3); HCO3 11 mEq/L (20-26); O2 Saturation 99 % (91-98); PCO2 23 mmHg (32.0-48.0); PO2 114 mmHg (83-108); pH, Arterial 7.29 (7.35-7.45)
[2025-01-15 20:37] LABS: Allen Test Performed/OK; Puncture Site Right Brachial
[2025-01-15] MEDS: AZITHROMYCIN INJ 500 MG in SODIUM CHLORIDE 0.9% 250 ML 250 ML 250 MG IV (21:44)
[2025-01-15 22:20] LABS: Lactate (Lactic Acid) 0.9 mMol/L (0.4-2.0)
[2025-01-15 22:40] LABS: Cholesterol 91 mg/dL (132-200); HDL Cholesterol < 5 mg/dL (40-60); LDL Cholesterol,Calculated 9 mg/dL (0-130); Triglycerides 383 mg/dL (30-150)
[2025-01-15 22:42] LABS: Troponin I 0.333 ng/mL (0.0-0.045)
[2025-01-15] MEDS: HEPARIN SOD INJ 5000 UNIT/ML VIAL SC (22:44)
[2025-01-15 23:48] LABS: Beta Hydroxybutyrate 1.9 mmol/L (<0.6)
[2025-01-15] MEDS: DiphenhydrAMINE 25 MG CAPSULE PO (23:49)
[2025-01-15] MEDS: PANTOPRAZOLE 40 MG TABLET PO (23:49)
[2025-01-16] VITALS (12 sets, daily range): BP systolic 108–143; BP diastolic 53–79; PULSE 61–90; RESP 15–99; TEMP 36.1–36.8; O2SAT 96–100; BMI 23.7
[2025-01-16 00:34] LABS: Creatine Kinase 15293 U/L (34-171)
[2025-01-16] MEDS: VANCOMYCIN/NS 1 GM IVPB 200 ML IV (00:46)
[2025-01-16] MEDS: FLECAINIDE ACET 50 MG TABLET 100 MG PO ×3 (00:51→20:09)
[2025-01-16 01:31] LABS: Anion Gap 15 (7-16); BUN/Creatinine Ratio 11 Ratio (12-20); Blood Urea Nitrogen 64 mg/dL (9-23); Calcium 7.1 mg/dL (8.3-10.6); Chloride 98 mMol/L (98-107); Glucose 115 mg/dL (74-106); Osmolality,Calculated 272 (275-295); Potassium 3.7 mMol/L (3.4-5.1); Sodium 126 mMol/L (136-145); eGFR 10 See Note
[2025-01-16 01:34] LABS: Carbon Dioxide 12.6 mMol/L (20.0-31.0)
[2025-01-16] MEDS: RINGERS LACTATED 1000 ML 1,000 ML 200 ML IV ×2 (01:59→08:46)
[2025-01-16 03:39] LABS: Basophils % (Auto) 0 % (0-2.5); Eosinophils % (Auto) 0 % (0-10); Hematocrit 25.1 % (41.0-53.0); Hemoglobin 9.1 g/dL (13.5-16.0); Immature Granulocytes % (Auto) 1 % (0-0); Immature Granulocytes Auto 0.04 Thou/mm3 (0.00-0.00); Lymphocytes # (Auto) 0.5 Thou/mm3 (1.0-4.8); Lymphocytes % (Auto) 7 % (10-50); Mean Corpuscular HGB Conc 36.3 g/dl (31.0-37.0); Mean Corpuscular Hemoglobin 30.1 pg (25.0-35.0); Mean Corpuscular Volume 83 fL (80-100); Monocytes # (Auto) 0.3 Thou/mm3 (0.0-0.8); Monocytes % (Auto) 4 % (0-12); Neutrophils # (Auto) 5.9 Thou/mm3 (1.8-7.7); Neutrophils % (Auto) 88 % (37-80); Nucleated Red Blood Cell % 0 /100 WBC (0); Platelet Count 101 Thou/mm3 (140-440); RDW Standard Deviation 51.6 fL (35.1-43.9); Red Blood Count 3.02 Miln/mm3 (4.50-5.90); White Blood Count 6.7 Thou/mm3 (3.8-10.6)
[2025-01-16 04:19] LABS: Alanine Aminotransferase 99 U/L (10-49); Albumin, Serum 2.7 gm/dL (3.4-4.8); Albumin/Globulin Ratio 1.2 (1.2-2.2); Alkaline Phosphatase 86 U/L (46-116); Anion Gap 14 (7-16); Aspartate Amino Transferase 451 U/L (0-34); BUN/Creatinine Ratio 11 Ratio (12-20); Bilirubin,Total 0.4 mg/dL (0.3-1.2); Blood Urea Nitrogen 65 mg/dL (9-23); Calcium 6.9 mg/dL (8.3-10.6); Calcium (Corrected) 7.9 mg/dL (8.5-10.1); Chloride 99 mMol/L (98-107); Globulin 2.2 gm/dL (2.3-3.5); Glucose 104 mg/dL (74-106); Magnesium 1.9 mg/dL (1.6-2.6); Osmolality,Calculated 273 (275-295); Phosphorous 6.9 mg/dL (2.4-5.1); Potassium 3.8 mMol/L (3.4-5.1); Sodium 127 mMol/L (136-145); Total Protein 4.9 gm/dL (5.7-8.2); eGFR 10 See Note
[2025-01-16 04:22] LABS: Carbon Dioxide 13.9 mMol/L (20.0-31.0); Troponin I 0.217 ng/mL (0.0-0.045)
[2025-01-16] MEDS: HEPARIN SOD INJ 5000 UNIT/ML VIAL SC ×3 (05:44→21:02)
[2025-01-16 07:23] LABS: Base Excess -13 (-3-3); HCO3 12 mEq/L (20-26); Inspired Oxygen, FIO2 21 %; O2 Saturation 99 % (91-98); PCO2 27 mmHg (32.0-48.0); PO2 119 mmHg (83-108); pH, Arterial 7.28 (7.35-7.45)
[2025-01-16 07:24] LABS: Allen Test Performed/OK; Puncture Site Left Radial
[2025-01-16] MEDS: cefTRIAXone/D5w 1gm IV premix 1 GM/50 ML BAG IV (08:45)
[2025-01-16] MEDS: PANTOPRAZOLE 40 MG TABLET PO ×2 (08:45→20:09)
[2025-01-16] MEDS: ALBUMIN HUMAN 25% IVPB 25 GM/100 ML BTL IV (08:53)
[2025-01-16] MEDS: Sodium Bicarb Inj 8.4% SYR 50 ML SYRINGE IV (08:53)
[2025-01-16] MEDS: SEVELAMER CARBONATE 800 MG TABLET PO (08:54)
[2025-01-16] MEDS: CALCIUM CARBONATE 600 MG TABLET PO (08:54)
[2025-01-16] MEDS: ONDANSETRON INJ 2 MG/ML INJ 2 ML 4 MG IV ×2 (08:54→14:08)
[2025-01-16 10:08] LABS: Parathyroid Hormone Intact 140.6 pg/ml (18.5-88.0)
--- NOTE | 2025-01-16 10:11 | PD.ONCCONS ---
HPI Data of Consult Requesting Physician: Hernan Sahni DO Primary Care Provider: Physician No Primary/Family Consult Narrative Reason for consult: Metastatic melanoma History of present illness: Patient is a 64-year-old gentleman well-known to us in the cancer center who received SBRT radiation to lung lesions recently systemic therapy with dabrafenib and trimethoprim under Dr. Dela Cruz's direction. Patient has stage IV metastatic melanoma which started from the right upper shoulder, initial surgery December 15, 2017 and on various systemic agents since February 2019 including nivolumab. Was admitted with considerably elevated creatinine kinase of 15 93 with acute kidney injury of elevated BUN/creatinine elevated liver function test and metabolic acidosis and electrolyte disturbance. Serum CO2 was 12.6 creatinine 6.0 EGFR 10. Patient receiving electrolyte replacement and automotive designer scheduled to see patient. Patient now referred for oncological consultation. cc:: cc: Hernan Sahni DO Past Medical History Family History OTHER FAMILY HX: Denies cancer in family. Past Medical History Comments PMH COMMENT: Stage IV metastatic melanoma with lung mets initially stage IIIa November 2017 initially treated with surgery and various type of systemic therapy since. Left colectomy for diverticulitis 2019 history of pemphigus being followed by casting carrier history of hepatitis asthma hypertension gastritis installation of pacemaker spinal cord stimulator history of back surgery carpal tunnel surgery laparoscopic cholecystectomy. Meds Home Medications and Allergies Home Medications ?Medication ?Instructions ?Recorded ?Confirmed ?Type losartan 100 mg tablet 50 mg PO BID #0 tabs 11/24/16 01/15/25 History flecainide 100 mg tablet 100 mg PO Q12H #0 tabs 01/19/17 01/15/25 History eszopiclone 2 mg tablet (Lunesta) 2 mg PO HS PRN SLEEPLESSNESS #0 05/27/17 01/15/25 History tabs metoprolol succinate 25 mg 50 mg PO BID 10/26/17 01/15/25 History tablet,extended release 24 hr acetaminophen 500 mg tablet 1,000 mg PO BID PRN fever or pain 02/01/18 01/15/25 History (Tylenol Extra Strength) diphenhydramine HCl 25 mg capsule 25 mg PO Q6H PRN Skin Irritation 12/06/20 01/15/25 History (Benadryl) methotrexate sodium 2.5 mg tablet 25 mg PO QWEEK 12/06/20 01/15/25 History pantoprazole 40 mg tablet,delayed 40 mg PO Q12H 12/06/20 01/15/25 History release atorvastatin 20 mg tablet 20 mg PO QDAY 06/10/23 01/15/25 History clonidine HCl 0.1 mg tablet 0.1 mg PO BID 06/10/23 01/15/25 History diltiazem HCl 240 mg capsule,24 240 mg PO QAM 07/19/24 01/15/25 History hr,extended release fluticasone furoate 200 1 inh inhalation Q24H 07/19/24 01/15/25 History mcg-vilanterol 25 mcg/dose inhalation powder (Breo Ellipta) linaclotide 290 mcg capsule 290 mcg PO QDAY 07/19/24 01/15/25 History (Linzess) dabrafenib 75 mg capsule (Tafinlar) 150 mg PO Q12H 01/15/25 01/15/25 History fluticasone furoate 200 1 inh inhalation QDAY 01/15/25 01/15/25 History mcg-vilanterol 25 mcg/dose inhalation powder (Breo Ellipta) folic acid 800 mcg tablet 800 mcg PO QDAY 01/15/25 01/15/25 History latanoprost 0.005 % eye drops 1 drp ophthalmic (eye) QDAY 01/15/25 01/15/25 History trametinib 0.5 mg tablet (Mekinist) 1.5 mg PO QDAY 01/15/25 01/15/25 History Allergies Allergy/AdvReac Type Severity Reaction Status Date / Time carisoprodol Allergy Severe Rash Verified 01/15/25 14:33 fluticasone Allergy Severe Rash Verified 01/15/25 14:33 hydrocodone Allergy Severe PSYCHOLOGIC Verified 01/15/25 14:33 CHANGES BEHAVIOR/ levalbuterol Allergy Severe Rash Verified 01/15/25 14:33 methocarbamol Allergy Severe Rash Verified 01/15/25 14:33 montelukast Allergy Severe Rash Verified 01/15/25 14:33 oxycodone Allergy Severe Rash Verified 01/15/25 14:33 propoxyphene Allergy Severe Rash Verified 01/15/25 14:33 pseudoephedrine Allergy Severe Rash Verified 01/15/25 14:33 chlorthalidone Allergy Intermediate Rash Verified 01/15/25 14:33 hydralazine Allergy Intermediate Irritable Verified 01/15/25 14:33 penicillamine Allergy Intermediate Rash Verified 01/15/25 14:33 Penicillins Allergy Intermediate Rash Verified 01/15/25 14:33 spironolactone Allergy Intermediate Irritable Verified 01/15/25 14:33 hydroxyzine Allergy Mild WIRED Verified 01/15/25 14:33 morphine Allergy Mild ANXIOUS, Verified 01/15/25 14:33 RASH prednisone Allergy Mild WIRED Verified 01/15/25 14:33 codeine Allergy Unknown BEHAVIOR Verified 01/15/25 14:33 CHANGES, RESTLESS gabapentin AdvReac Severe ALTERS MOOD Verified 01/15/25 14:33 tramadol AdvReac Severe ALTERS Verified 01/15/25 14:33 MOOD, CAN NOT STAY STILL meperidine AdvReac Intermediate Rash Verified 01/15/25 14:33 vancomycin AdvReac Intermediate Rash Verified 01/15/25 14:33 Exam Vital Signs Temp Pulse Resp BP Pulse Ox O2 Del Method 97.4 F 65 22 H 132/73 H 100 Room Air 01/16/25 08:00 01/16/25 08:45 01/16/25 08:00 01/16/25 08:45 01/16/25 08:00 01/16/25 08:00 Narrative Exam Appearing comfortable lying in no acute distress Results Labs 01/16/25 03:27 01/16/25 03:27 Labs: Short CBC 01/15/25 01/16/25 Range/Units 15:48 03:27 WBC 12.9 H 6.7 D (3.8-10.6) Thou/mm3 Hgb 13.1 L 9.1 L D (13.5-16.0) g/dL Hct 35.8 L 25.1 L D (41.0-53.0) % Plt Count 153 D 101 L D (140-440) Thou/mm3 BMP 01/15/25 01/16/25 01/16/25 15:48 01:02 03:27 Sodium 123 L 126 L 127 L Potassium 4.1 3.7 3.8 Chloride 91 L 98 99 Carbon Dioxide 12.8 L* 12.6 L* 13.9 L* BUN 64 H 64 H 65 H Creatinine 6.0 H* 6.0 H* 6.0 H* Glucose 102 115 H 104 Calcium 8.4 7.1 L 6.9 L Cardiac Enzymes 05/19/25 05/19/25 05/19/25 Range/Units 15:48 18:10 22:13 Total Creatine Kinase 83301 H (34-171) U/L Troponin I 0.396 H* 0.407 H* 0.333 H* (0.0-0.045) ng/mL 01/16/25 Range/Units 03:27 Total Creatine Kinase (34-171) U/L Troponin I 0.217 H* (0.0-0.045) ng/mL Liver Function 01/15/25 01/16/25 Range/Units 15:48 03:27 Total Bilirubin 0.9 0.4 D (0.3-1.2) mg/dL AST 600 H* 451 H (0-34) U/L ALT 125 H 99 H (10-49) U/L Alkaline Phosphatase 137 H 86 D (46-116) U/L Albumin 3.9 2.7 L D (3.4-4.8) gm/dL Urine 01/15/25 Range/Units 16:30 Urine Color Drk-Yellow A (Lt Yel-Yel) Urine Clarity Turbid A (Clear/Hazy) Urine pH 5.0 (5.0-7.0) Ur Specific [place] 1.021 (1.001-1.035) Urine Protein 1+ A (Neg - Trace) Urine Glucose (UA) Trace (Negative) ABG Interpretation ABG results: 01/15/25 01/16/25 20:26 07:15 ABG pH 7.29 L 7.28 L ABG pCO2 23 L 27 L ABG pO2 114 H 119 H ABG HCO3 11 L 12 L ABG O2 Saturation 99 H 99 H ABG Base Excess -14 L -13 L Assessment and Plan Additional Assessment & Plan Additional Plan: 1. History of malignant melanoma since 2018, initially stage IIIa, now stage IV with lung mets recently treated with SBRT to lung lesions and currently receiving darafenib trametinib under Dr. Dela Cruz's direction. 2. Admitted with CK greater than 1500 CRIS electrolyte disturbance and metabolic acidosis. 3. Appears improving with supportive care including fluids electrolyte and acid-base corrections being followed by automotive designer Dr Rabago. 4. Dr. Venegas recommends holding cancer meds for the time being and will follow patient upon discharge.
[2025-01-16 10:17] LABS: Lipase 550 U/L (12-53)
[2025-01-16 10:22] LABS: Troponin I 0.152 ng/mL (0.0-0.045)
[2025-01-16] MEDS: RINGERS LACTATED 1000 ML 1,000 ML 275 ML IV (10:23)
[2025-01-16 11:37] LABS: Alanine Aminotransferase 104 U/L (10-49); Albumin, Serum 2.9 gm/dL (3.4-4.8); Albumin/Globulin Ratio 1.2 (1.2-2.2); Alkaline Phosphatase 91 U/L (46-116); Anion Gap 14 (7-16); Aspartate Amino Transferase 446 U/L (0-34); BUN/Creatinine Ratio 12 Ratio (12-20); Bilirubin,Total 0.4 mg/dL (0.3-1.2); Blood Urea Nitrogen 66 mg/dL (9-23); Calcium 7.3 mg/dL (8.3-10.6); Calcium (Corrected) 8.2 mg/dL (8.5-10.1); Chloride 99 mMol/L (98-107); Creatine Kinase 12856 U/L (34-171); Creatinine (Component) 5.7 mg/dL (0.6-1.3); Estimated Creatinine Clearance 11.5 mL/min (>60); Globulin 2.4 gm/dL (2.3-3.5); Glucose 94 mg/dL (74-106); LDH (Lactate Dehydrogenase) 1269 U/L (120-246); Osmolality,Calculated 277 (275-295); Potassium 3.2 mMol/L (3.4-5.1); Sodium 129 mMol/L (136-145); Total Protein 5.3 gm/dL (5.7-8.2); Uric Acid 10.4 mg/dL (3.7-9.2); eGFR 10 See Note
--- NOTE | 2025-01-16 11:56 | XR_ITS ---
Examination: Retroperitoneal ultrasound, complete Technique: Multiple high resolution grayscale images of the retroperitoneum obtained, including kidneys and bladder. Exam date and time:January 16, 2025 1610 hours INDICATIONS: Acute renal insufficiency on laboratory examination today FINDINGS: Right kidney 10.9 cm no cortical 4 x 4 centimeters The kidney 11.6 cm renal cortex 2.0 cm Mild right and moderate left renal parenchymal scar formation No hydronephrosis Bladder contracted around a [place] catheter IMPRESSION: Mild right and moderate left renal parenchymal scar formation
[2025-01-16] MEDS: SODIUM CHLORIDE 0.9% 1000 ML 1,000 ML 150 ML IV ×2 (13:05→20:08)
--- NOTE | 2025-01-16 13:06 | PD.RESPRO ---
Documentation for date of: 01/16/25 Subjective Subjective Interval history: 01/16/2025: Overnight admission for a 64-year-old male with past medical history of malignant melanoma presenting with rhabdomyolysis and acute renal failure secondary to likely chemotherapy agent versus hyperthermic episode. Patient seen and assessed appears in normal baseline and denies having any concerning cardiac symptoms at this time. Dr. Hsu, Rad Onc, is consulted and following the case closely. Per his recommendations, will continue IV fluid resuscitation for rhabdomyolysis. Patient's oncologist Dr. Venegas to follow-up with the patient once he is stable to be discharged. Also consulted Dr Rabago, nephrology, for acute renal failure and recommendations regarding possible need for dialysis if kidney function does not improve. Exam Vital Signs Temp Pulse Resp BP Pulse Ox O2 Del Method 98.0 F 80 22 H 143/70 H 100 Room Air 01/16/25 12:00 01/16/25 12:00 01/16/25 12:00 01/16/25 12:00 01/16/25 12:00 01/16/25 12:00 Narrative Exam Physical Exam: General: Elderly male, No acute distress, cooperative HEENT: NCAT, No JVD noted. Mucosa dry. Pupils are equal and reactive to light bilaterally Cardiovascular: Normal S1 and S2. Regular rate and rhythm. Respiratory: Lungs are clear to auscultation bilaterally. No wheezing or crackles heard. Abdomen: Soft, nontender, not distended, normal bowel sounds. Abdominal scar from surgery. Skin: Warm to touch, dry, no rashes noted, scar on right shoulder from melanoma surgery. Musculoskeletal: No gross injuries. Able to move all 4 extremities. No pitting edema Neuro: Alert and oriented x3. No focal neuro deficits. Objective Labs 01/18/25 05:00 01/18/25 05:17 Labs: Laboratory Results - last 24 hr 01/15/25 01/15/25 01/15/25 15:48 16:30 18:10 WBC 12.9 H RBC 4.31 L Hgb 13.1 L Hct 35.8 L MCV 83 MCH 30.4 MCHC 36.6 RDW Std Deviation 51.4 H Plt Count 153 D Neut % (Auto) 90 H Lymph % (Auto) 4 L [place] % (Auto) 5 Eos % (Auto) 0 Baso % (Auto) 0 Neut # (Auto) 11.5 H Lymph # (Auto) 0.5 L [place] # (Auto) 0.7 Eos # (Auto) 0.1 Baso # (Auto) 0.0 Immature Gran # (Auto) 0.08 H Absolute Nucleated RBC 0.03 H Immature Gran % 1 H Nucleated RBC % 0 PT 12.3 H INR 1.1 APTT 39.9 H Puncture Site ABG pH ABG pCO2 ABG pO2 ABG HCO3 ABG O2 Saturation ABG Base Excess FiO2 Sodium 123 L Potassium 4.1 Chloride 91 L Carbon Dioxide 12.8 L* Anion Gap 19 H BUN 64 H Creatinine 6.0 H* Estim Creat Clear Calc 11.0 L eGFR 10 L* BUN/Creatinine Ratio 11 L Glucose 102 Calculated Osmolality 266 L Lactic Acid 1.4 Uric Acid Calcium 8.4 Corrected Calcium 8.5 Phosphorus Magnesium Total Bilirubin 0.9 AST 600 H* ALT 125 H Alkaline Phosphatase 137 H Lactate Dehydrogenase Total Creatine Kinase Troponin I 0.396 H* 0.407 H* B-Natriuretic Peptide < 20 Total Protein 7.2 Albumin 3.9 Globulin 3.3 Albumin/Globulin Ratio 1.2 Triglycerides Cholesterol LDL Cholesterol, Calc HDL Cholesterol Cholesterol/HDL Ratio Lipase Beta-Hydroxybutyrate/Acetoacetate Procalcitonin 203.73 H PTH Intact Ur Collection Type Clean Catch Urine Color Drk-Yellow A Urine Clarity Turbid A Urine pH 5.0 Ur Specific [place] 1.021 Urine Protein 1+ A Urine Glucose (UA) Trace Urine Ketones Negative Urine Blood 3+ A Urine Nitrite Negative Urine Bilirubin Negative Urine Urobilinogen (Auto) Negative Ur Leukocyte Esterase Negative Urine RBC 8 H Urine WBC 7 H Ur Squamous Epith Cells 1 Ur Transition Epith Cell 5 Amorphous Crystals Present A Urine Bacteria None Ur Culture Indicated? Not Indicated 01/15/25 01/15/25 01/15/25 20:26 22:13 23:24 WBC RBC Hgb Hct MCV MCH MCHC RDW Std Deviation Plt Count Neut % (Auto) Lymph % (Auto) [place] % (Auto) Eos % (Auto) Baso % (Auto) Neut # (Auto) Lymph # (Auto) [place] # (Auto) Eos # (Auto) Baso # (Auto) Immature Gran # (Auto) Absolute Nucleated RBC Immature Gran % Nucleated RBC % PT INR APTT Puncture Site Right Brachial ABG pH 7.29 L ABG pCO2 23 L ABG pO2 114 H ABG HCO3 11 L ABG O2 Saturation 99 H ABG Base Excess -14 L FiO2 21 Sodium Potassium Chloride Carbon Dioxide Anion Gap BUN Creatinine Estim Creat Clear Calc eGFR BUN/Creatinine Ratio Glucose Calculated Osmolality Lactic Acid 0.9 Uric Acid Calcium Corrected Calcium Phosphorus Magnesium Total Bilirubin AST ALT Alkaline Phosphatase Lactate Dehydrogenase Total Creatine Kinase 97604 H Troponin I 0.333 H* B-Natriuretic Peptide Total Protein Albumin Globulin Albumin/Globulin Ratio Triglycerides 383 H Cholesterol 91 L LDL Cholesterol, Calc 9 HDL Cholesterol < 5 L Cholesterol/HDL Ratio 18.0 H Lipase Beta-Hydroxybutyrate/Acetoacetate 1.9 H Procalcitonin PTH Intact Ur Collection Type Urine Color Urine Clarity Urine pH Ur Specific [place] Urine Protein Urine Glucose (UA) Urine Ketones Urine Blood Urine Nitrite Urine Bilirubin Urine Urobilinogen (Auto) Ur Leukocyte Esterase Urine RBC Urine WBC Ur Squamous Epith Cells Ur Transition Epith Cell Amorphous Crystals Urine Bacteria Ur Culture Indicated? 01/16/25 01/16/25 01/16/25 01:02 03:27 07:15 WBC 6.7 D RBC 3.02 L Hgb 9.1 L D Hct 25.1 L D MCV 83 MCH 30.1 MCHC 36.3 RDW Std Deviation 51.6 H Plt Count 101 L D Neut % (Auto) 88 H Lymph % (Auto) 7 L [place] % (Auto) 4 Eos % (Auto) 0 Baso % (Auto) 0 Neut # (Auto) 5.9 Lymph # (Auto) 0.5 L [place] # (Auto) 0.3 Eos # (Auto) 0.0 Baso # (Auto) 0.0 Immature Gran # (Auto) 0.04 H Absolute Nucleated RBC 0.00 Immature Gran % 1 H Nucleated RBC % 0 PT INR APTT Puncture Site Left Radial ABG pH 7.28 L ABG pCO2 27 L ABG pO2 119 H ABG HCO3 12 L ABG O2 Saturation 99 H ABG Base Excess -13 L FiO2 21 Sodium 126 L 127 L Potassium 3.7 3.8 Chloride 98 99 Carbon Dioxide 12.6 L* 13.9 L* Anion Gap 15 14 BUN 64 H 65 H Creatinine 6.0 H* 6.0 H* Estim Creat Clear Calc 11.0 L 11.0 L eGFR 10 L* 10 L* BUN/Creatinine Ratio 11 L 11 L Glucose 115 H 104 Calculated Osmolality 272 L 273 L Lactic Acid Uric Acid Calcium 7.1 L 6.9 L Corrected Calcium 7.9 L Phosphorus 6.9 H Magnesium 1.9 Total Bilirubin 0.4 D AST 451 H ALT 99 H Alkaline Phosphatase 86 D Lactate Dehydrogenase Total Creatine Kinase Troponin I 0.217 H* B-Natriuretic Peptide Total Protein 4.9 L Albumin 2.7 L D Globulin 2.2 L Albumin/Globulin Ratio 1.2 Triglycerides Cholesterol LDL Cholesterol, Calc HDL Cholesterol Cholesterol/HDL Ratio Lipase Beta-Hydroxybutyrate/Acetoacetate Procalcitonin PTH Intact Ur Collection Type Urine Color Urine Clarity Urine pH Ur Specific [place] Urine Protein Urine Glucose (UA) Urine Ketones Urine Blood Urine Nitrite Urine Bilirubin Urine Urobilinogen (Auto) Ur Leukocyte Esterase Urine RBC Urine WBC Ur Squamous Epith Cells Ur Transition Epith Cell Amorphous Crystals Urine Bacteria Ur Culture Indicated? 01/16/25 01/16/25 09:30 10:51 WBC RBC Hgb Hct MCV MCH MCHC RDW Std Deviation Plt Count Neut % (Auto) Lymph % (Auto) [place] % (Auto) Eos % (Auto) Baso % (Auto) Neut # (Auto) Lymph # (Auto) [place] # (Auto) Eos # (Auto) Baso # (Auto) Immature Gran # (Auto) Absolute Nucleated RBC Immature Gran % Nucleated RBC % PT INR APTT Puncture Site ABG pH ABG pCO2 ABG pO2 ABG HCO3 ABG O2 Saturation ABG Base Excess FiO2 Sodium 129 L Potassium 3.2 L D Chloride 99 Carbon Dioxide 16.0 L Anion Gap 14 BUN 66 H Creatinine 5.7 H* Estim Creat Clear Calc 11.5 L eGFR 10 L* BUN/Creatinine Ratio 12 Glucose 94 Calculated Osmolality 277 Lactic Acid Uric Acid 10.4 H Calcium 7.3 L Corrected Calcium 8.2 L Phosphorus Magnesium Total Bilirubin 0.4 AST 446 H ALT 104 H Alkaline Phosphatase 91 Lactate Dehydrogenase 1269 H Total Creatine Kinase 32623 H D Troponin I 0.152 H* B-Natriuretic Peptide Total Protein 5.3 L Albumin 2.9 L Globulin 2.4 Albumin/Globulin Ratio 1.2 Triglycerides Cholesterol LDL Cholesterol, Calc HDL Cholesterol Cholesterol/HDL Ratio Lipase 550 H Beta-Hydroxybutyrate/Acetoacetate Procalcitonin PTH Intact 140.6 H Ur Collection Type Urine Color Urine Clarity Urine pH Ur Specific [place] Urine Protein Urine Glucose (UA) Urine Ketones Urine Blood Urine Nitrite Urine Bilirubin Urine Urobilinogen (Auto) Ur Leukocyte Esterase Urine RBC Urine WBC Ur Squamous Epith Cells Ur Transition Epith Cell Amorphous Crystals Urine Bacteria Ur Culture Indicated? ABG Interpretation ABG results: 01/15/25 01/16/25 20:26 07:15 ABG pH 7.29 L 7.28 L ABG pCO2 23 L 27 L ABG pO2 114 H 119 H ABG HCO3 11 L 12 L ABG O2 Saturation 99 H 99 H ABG Base Excess -14 L -13 L Quality Measures Quality Measures VTE prophylaxis Assessment & Plan Assessment Current Active Medications: Generic Name Dose Route Start Last Admin Trade Name Freq PRN Reason Stop Dose Admin Acetaminophen 650 mg 01/15/25 21:11 Acetaminophen 325 Mg Tablet PO 02/14/25 21:10 Q6H PRN Fever >100.3 or pain Diphenhydramine HCl 25 mg 01/15/25 23:28 01/15/25 23:49 Diphenhydramine 25 Mg Capsule PO 02/14/25 23:27 25 mg Q6H PRN Administration Skin Irritation Flecainide Acetate 100 mg 01/15/25 23:45 01/16/25 08:45 Flecainide Acet 50 Mg Tablet PO 02/14/25 23:44 100 mg Q12HR GILBERT Administration Heparin Sodium (Porcine) 5,000 unit 01/15/25 22:00 01/16/25 05:44 Heparin Sod Inj 5000 Unit/Ml Vial SC 01/29/25 21:59 5,000 unit Q8HR GILBERT Administration Ceftriaxone Sodium/Dextrose 1 gm in 50 mls @ 100 mls/hr 01/16/25 09:00 01/16/25 08:45 Rocephin/D5w 1gm Iv Premix IV 01/23/25 08:59 100 mls/hr QDAY GILBERT Administration Sodium Chloride 1,000 mls @ 150 mls/hr 01/16/25 12:15 Ns IV 02/15/25 12:14 .Q6H40M GILBERT Doxycycline Hyclate 100 mg/ 100 mls @ 100 mls/hr 01/16/25 21:00 Sodium Chloride IV 01/23/25 20:59 BID GILBERT Ondansetron HCl 4 mg 01/15/25 21:11 01/16/25 08:54 Ondansetron Inj 2 Mg/Ml Inj 2 Ml IV 02/14/25 21:10 4 mg Q6H PRN Administration NAUSEA OR VOMITING Protocol Pantoprazole Sodium 40 mg 01/15/25 23:30 01/16/25 08:45 Pantoprazole 40 Mg Tablet PO 02/14/25 23:29 40 mg Q12HR GILBERT Administration (Eszopiclone [ 1 ea 01/15/25 23:28 Lunesta] 2 Mg Tablet PO ) HS PRN SLEEPLESSNESS (Linaclotide [ 1 ea 01/16/25 09:00 01/16/25 08:56 Linzess] 290 Mcg PO 02/15/25 08:59 Not Given Capsule) QDAY GILBERT Pharmacy Consult 1 each 01/15/25 21:16 Pharmacy Renal Dose Adjustment 1 Ea XX 02/14/25 21:15 PRN PRN CONSULT Sennosides 1 tab 01/15/25 21:11 Senna Tablet PO 02/14/25 21:10 QDAY PRN constipation Protocol Plan 64 yr male with PMH of hypertension, hyperlipidemia, A-fib, malignant melanoma with mets to the lung presenting to ED due to dry cough chills for the past 1 week. Patient stated that he has not had any recent travel or around any sick contacts. Dr. Rabago was consulted for CRIS. Patient will be admitted for management of rhabdomyolysis, CRIS. #Rhabdomyolysis #Hx malignant melanoma Differentials include: Prolonged immobility, dehydration, hyperthermia, medication-induced (statin), chemotherapy induced myopathy less likely to be myocardial infarction or infection CK >1300. Possibly due to SE of cancer medication, atovastatin however he denied any muscle pain. UA positive for blood but RBCs also present. Takes Trametinib and Dabrafenib. Follows Dr. Dela Cruz outpatient. Initial chest x-ray was negative for any active disease EKG showed normal sinus rhythm with first-degree AV block and no concerning ST changes noted CT of the chest showed 14-50 mm pulmonary nodules in the left lower lobe CT abdomen pelvis showed mild perinephric stranding, no liver lesions Plan: Will hold patient's chemotherapy medications Continue fluids Monitor urine output; Ok in Follow up with lab for exact CK levels Hold statin #Acute renal failure #Anion gap metabolic acidosis BUN 64, Cr 6.0 on admisison, BUN/Cr 11 indicating intra renal cause, rhabdomyolysis may also be causing CRIS. Possible component of prerenal in setting of hypotension with hypoperfusion and as evidenced by elevated LFTs. However no source of infection. Blood pressure did improve with fluids. AG 19, bicarb 13, ABG ph 7.29, Co2 23. BHB 1.9. Appropriate CO2 compensation 26?30 base of Romero formula. Ddx: ketosis, uremia Plan: Dr Rabago, nephrology, consulted appreciate recommendations Continue IV fluid resuscitation Avoid nephrotoxic agents Monitor with morning labs #Elevated liver enzymes, downtrending AST 600, ALT 125. Seen as side effect from Trametinib vs in setting of rhabo Plan: Monitor with morning labs #NSTEMI II, elevated troponins #Atrial fibrillation #Hypertension #Hyperlipidemia Patient on home clonidine 0.1 mg p.o. twice daily, diltiazem 20 pulmonary milligram every morning, flecainide 100 mg p.o. every 12 hours, losartan 50 mg p.o. twice daily, metoprolol succinate 50 mg p.o. twice daily? Initially when patient came in troponins were moderately elevated from 0.396 => 0.407=> 0.33 => 0.217 => 0.152 Patient does have cardiac history as noted Plan: Stop trending troponin as they have peaked and downtrended Will restart home medications when appropriate Hospital Management: Lines: PIV, Euceda Diet: Regular Bowel: Senna GI prophylaxis: Not needed DVT prophylaxis: Heparin subcu Dispo: IV fluid resuscitation rhabdomyolysis nephrology consultation for possible need for dialysis for ARF Code: Full Patient seen and assessed with Dr. Dawson and senior resident Dr. Nadja Card, PGY-1 Patient examined and case discussed with the team including attending physician. Note reviewed, I agree with the care plan as documented. Mr Rios is a pleasant 64 year old male admitted for Rahbdomyolysis, CK greater >1500 causing acute renal failure. He has a history of BRAF mutation melanoma, initially stage IIIa in 2018, now stage IV with lung mets. He was treated with SBRT to lung lesions and currently on V600 inhibitor darafenib and MEK inhibitor trametinib under Dr. Venegas's care. CMP showed multiple electrolyte disturbance and metabolic acidosis, improving with IV fluids, electrolyte and bicarb x2. Operations Intelligence Superintendent Dr Rabago is consulted as well, appreciate recommendations. Dr Venegas to be updated via phone, appreciate her input. Elevated LDH and Lipase noted. Plan: ARF improving, will treat as pancreatitis given Lipase >500 and rhabdomyolysis CK improved 15k -> 12k. Continue q6H renal panel for close monitoring. Anticipate continued improvement. Please refer to the note above for further details. - Art Saez MD, PGY 2 Disclaimer: The document may contain phonetic/typographic errors due to voice recognition software. These errors are purely due to imperfections in the software program and should not be misconstrued in any way to compromise the substance of the patient's medical care during this visit. Attending Provider Attestation/Addendum 64-year-old male with atrial fibrillation not on Eliquis for unknown reasons, malignant melanoma with mets to the lungs on chemotherapy who presented to the ER with dry cough found to have rhabdomyolysis with subsequent acute kidney injury and high anion gap metabolic acidosis. Plan to continue aggressive IV fluid resuscitation and monitor kidney function with subsequent electrolytes closely. Of note, did a thorough physical exam with no evidence of any skin lesions other than 2 minor bruises in the paraspinal area, unlikely causing rhabdomyolysis at this significance. As for A-fib, well-controlled and patient did have a slight bump in troponins with a peak at 0.407 however down trended. Continue aggressive IV fluid resuscitation and monitor kidney function closely and appreciate nephrology input.I reviewed above note and agree with findings and plans. I have also personally examined the patient with medicine team and went over assessment and plan with medical team including internal corrosion specialist and resident physician.
[2025-01-16] MEDS: SCOPOLAMINE 1 MG TDSY TOP (14:07)
[2025-01-16] MEDS: SODIUM BICARBONATE 650 MG TABLET 325 MG PO (14:08)
[2025-01-16 14:30] LABS: Hematocrit 25.8 % (41.0-53.0); Hemoglobin 9.6 g/dL (13.5-16.0)
--- NOTE | 2025-01-16 14:49 | PC.SS ---
SS met with patient regarding his d/c plan. Pt is alert/oriented. Pt was admitted for Chills, N/V X 2 Days, Weakness. Pt confirmed demographic and contact information is correct on facesheet. Pt resides alone. Pt ambulates independently without assistance or DME. Pt is ok with all ADLs. Patient?s pharmacy of choice is [facility] [address]. Pt named his brother, Duc Rios medical decision maker if he is unable. SS provided verbal options for d/c to home or SNF. Patient?s choice is to return home upon d/c. Pt does not have an advance directive, SS offered, and pt declined. Pt states he is not diabetic and is not on dialysis. Pt states he followed up with PCP 1 month ago. Patient's brother, Duc nair provide transportation. D/C plan: Return home Next of Kin: Duc Rios, brother, phone# [phone] PCP: Dr. Randy Don from [facility] Address: Correct on facesheet
[2025-01-16 14:50] LABS: Anion Gap 15 (7-16); BUN/Creatinine Ratio 12 Ratio (12-20); Blood Urea Nitrogen 64 mg/dL (9-23); Calcium 7.2 mg/dL (8.3-10.6); Carbon Dioxide 15.6 mMol/L (20.0-31.0); Chloride 97 mMol/L (98-107); Creatinine (Component) 5.4 mg/dL (0.6-1.3); Estimated Creatinine Clearance 12.2 mL/min (>60); Glucose 107 mg/dL (74-106); Osmolality,Calculated 275 (275-295); Phosphorous 4.6 mg/dL (2.4-5.1); Potassium 3.1 mMol/L (3.4-5.1); Sodium 128 mMol/L (136-145); eGFR 11 See Note
[2025-01-16 19:08] LABS: Albumin, Serum 3.1 gm/dL (3.4-4.8); Anion Gap 14 (7-16); BUN/Creatinine Ratio 11 Ratio (12-20); Blood Urea Nitrogen 57 mg/dL (9-23); Calcium 7.6 mg/dL (8.3-10.6); Calcium (Corrected) 8.3 mg/dL (8.5-10.1); Carbon Dioxide 15.3 mMol/L (20.0-31.0); Chloride 98 mMol/L (98-107); Creatinine (Component) 5.3 mg/dL (0.6-1.3); Estimated Creatinine Clearance 12.4 mL/min (>60); Glucose 129 mg/dL (74-106); Osmolality,Calculated 273 (275-295); Phosphorous 5.1 mg/dL (2.4-5.1); Potassium 3.4 mMol/L (3.4-5.1); Sodium 127 mMol/L (136-145); eGFR 11 See Note
[2025-01-16] MEDS: DOXYCYCLINE INJ 100 MG in SODIUM CHLORIDE 0.9% (POP) 100 ML IV (20:09)
[2025-01-16] MEDS: ESZOPICLONE 2 MG PO (21:02)
[2025-01-16] MEDS: DiphenhydrAMINE 25 MG CAPSULE PO (21:32)
[2025-01-17] VITALS (9 sets, daily range): BP systolic 122–173; BP diastolic 46–82; PULSE 68–97; RESP 19–98; TEMP 36.2–36.4; O2SAT 94–99; BMI 25.7; BMI 14.0
[2025-01-17 01:53] LABS: Anion Gap 15 (7-16); BUN/Creatinine Ratio 12 Ratio (12-20); Blood Urea Nitrogen 57 mg/dL (9-23); Calcium 7.5 mg/dL (8.3-10.6); Chloride 102 mMol/L (98-107); Creatinine (Component) 4.8 mg/dL (0.6-1.3); Estimated Creatinine Clearance 13.7 mL/min (>60); Glucose 91 mg/dL (74-106); Osmolality,Calculated 284 (275-295); Potassium 3.4 mMol/L (3.4-5.1); Sodium 134 mMol/L (136-145); eGFR 13 See Note
[2025-01-17 01:54] LABS: Albumin, Serum 3.2 gm/dL (3.4-4.8); Calcium (Corrected) 8.1 mg/dL (8.5-10.1); Phosphorous 4.5 mg/dL (2.4-5.1)
[2025-01-17] MEDS: SODIUM CHLORIDE 0.9% 1000 ML 1,000 ML 150 ML IV ×2 (02:43→08:12)
[2025-01-17] MEDS: HEPARIN SOD INJ 5000 UNIT/ML VIAL SC ×3 (05:21→21:47)
--- NOTE | 2025-01-17 05:30 | PC.NURSE ---
NOTIFIED DR CHARLES ABOUT PATIENT BEING CONFUSED, DR TARANGO ENCEPHALOPATHY FROM POSSIBLE RENAL FAILURE AND MAYBE SLEEPING PILL. PATIENT IS AWARE OF WHERE HE IS AND SPEAKIN CLEAR, NO FACIAL DROOP EVEN STRENGTH BILATERALLY, WILL MONITORAND DR CHARLES SAID OK TO MOVE TO [facility] ON A TELE BOX
[2025-01-17 05:57] LABS: Basophils % (Auto) 0 % (0-2.5); Eosinophils % (Auto) 0 % (0-10); Hematocrit 25.9 % (41.0-53.0); Hemoglobin 9.4 g/dL (13.5-16.0); Immature Granulocytes % (Auto) 1 % (0-0); Immature Granulocytes Auto 0.03 Thou/mm3 (0.00-0.00); Lymphocytes # (Auto) 0.5 Thou/mm3 (1.0-4.8); Lymphocytes % (Auto) 10 % (10-50); Mean Corpuscular HGB Conc 36.3 g/dl (31.0-37.0); Mean Corpuscular Hemoglobin 29.8 pg (25.0-35.0); Mean Corpuscular Volume 82 fL (80-100); Monocytes # (Auto) 0.1 Thou/mm3 (0.0-0.8); Monocytes % (Auto) 2 % (0-12); Neutrophils # (Auto) 4.2 Thou/mm3 (1.8-7.7); Neutrophils % (Auto) 87 % (37-80); Nucleated Red Blood Cell % 0 /100 WBC (0); Platelet Count 137 Thou/mm3 (140-440); Red Blood Count 3.15 Miln/mm3 (4.50-5.90); White Blood Count 4.8 Thou/mm3 (3.8-10.6)
[2025-01-17 06:38] LABS: Albumin, Serum 3.1 gm/dL (3.4-4.8); Anion Gap 16 (7-16); BUN/Creatinine Ratio 11 Ratio (12-20); Blood Urea Nitrogen 50 mg/dL (9-23); Calcium 7.7 mg/dL (8.3-10.6); Calcium (Corrected) 8.4 mg/dL (8.5-10.1); Carbon Dioxide 15.3 mMol/L (20.0-31.0); Chloride 103 mMol/L (98-107); Creatine Kinase 8470 U/L (34-171); Creatinine (Component) 4.6 mg/dL (0.6-1.3); Estimated Creatinine Clearance 14.3 mL/min (>60); Glucose 84 mg/dL (74-106); Osmolality,Calculated 280 (275-295); Phosphorous 4.9 mg/dL (2.4-5.1); Potassium 3.6 mMol/L (3.4-5.1); Sodium 134 mMol/L (136-145); eGFR 14 See Note
--- NOTE | 2025-01-17 07:12 | ESCONSULT_ITS ---
RE: RONY DE LA ROSA : 1960 DATE OF CONSULTATION: 01/16/2025 REASON FOR REFERRAL: Acute kidney injury. REFERRING PHYSICIAN: HISTORY OF PRESENT ILLNESS: This patient is a 64-year-old gentleman with past medical history significant for malignant melanoma, which metastasized to his lungs, currently on oral chemotherapy, who presented to the emergency room last night with chief complaints of nausea, vomiting, and diarrhea. He said that he has lost his appetite in the past 2 weeks. The patient also has cough and congestion. Upon admission, the patient was found with an elevated creatinine level of 6 with a CO2 of 12.8. I saw him last 10/2024 and during that time creatinine was noted at 1.2. He was started on IV fluids since last night. He has some urine output on his Euceda catheter bag. He said that in the past 2 weeks he has no appetite at all. He said that he also was not drinking enough for the past 2 weeks. He said that he always had an on and off diarrhea and at this time he had diarrhea for over 2 weeks. He denies chest pain or shortness of breath, but admits to cough. His chest x-ray did not reveal any pneumonia or pulmonary edema. There were pulmonary nodules that were seen. PAST MEDICAL HISTORY: As previously mentioned malignant melanoma on chemotherapy, which metastasized to his lungs, history of diverticulitis. SURGICAL HISTORY: Includes pacemaker placement, spinal cord stimulator, loop recorder in 2016, back surgery, carpal tunnel surgery, laparoscopic cholecystectomy. CURRENT MEDICATIONS: 1. Acetaminophen. 2. Aspirin 325 mg p.o. daily. 3. Azithromycin 500 mg IV x1. 4. Activated Ringer's solution 1 liter x1. 5. Vibramycin 100 mg b.i.d. IV. 6. Flecainide acetate or Tambocor 100 mg p.o. every 12 hours. 7. Heparin 5000 units subsequently every 8 hours. 8. Ondansetron 4 mg IV every 6 hours p.r.n. 9. Protonix 40 mg IV every 12 hours. 10. Scopolamine 1 mg patch. 11. Senna 1 tab p.o. daily p.r.n. 12. Sevelamer 800 mg p.o. x1. 13. Sodium bicarbonate 14. Vancomycin IV 1 g x1 PHYSICAL EXAMINATION: General: He is awake, alert, and oriented, not in respiratory distress. Vital Signs: Blood pressure of 140/70, heart rate of 80, temperature 98, O2 saturation 100% on room air. HEENT: Anicteric sclera. Normocephalic. Neck: Supple. No JVD. Chest and Lungs: Symmetrical expansion. Clear breath sounds. Heart: Without murmur. Abdomen: Soft. Nontender. Extremities: No edema. LABORATORY DATA: Hemoglobin 9.6, WBC 6600, plate count 101,000. Sodium 128, potassium 3.1, chloride 97, CO2 of 15.6, BUN 64, creatinine 5.4, glucose 107, lactic acid 0.9, calcium 7.2 corrected 8, uric acid 10.4, phosphorus 4.6, AST 446, ALT 104, troponin 0.152, albumin 3, beta hydroxybutyrate acetate 1.9, procalcitonin 203, PTH 140.6. Urinalysis: Urine blood 3+, urine rbc 8. Total CK on 01/15 was 5923 now , AST from 600 now 446, ALT 125 to 104. Abdomen and pelvis CT without contrast mild perinephric stranding, no liver lesions, normal appendix. No bowel obstruction or diverticulitis. E: 0 ASSESSMENT: 1. Acute kidney injury, most likely secondary to severe dehydration, which could have evolved into acute tubular necrosis, possibly with rhabdomyolysis. 2. Acute rhabdomyolysis, unknown etiology. 3. History of malignant melanoma with metastasis to lungs. 4. Acidosis in part secondary to acute kidney injury in part due to starvation ketoacidosis. 5. Failure to thrive. PLAN: I agree with aggressive IV fluid hydration. The patient I believe sustained starvation ketoacidosis due to not being able to eat for so many days, apparently loss of appetite. I am hoping that the kidney function will continue to improve with aggressive IV fluid hydration. We will continue to monitor kidney function, electrolytes and urine output on a daily basis. There is no acute need for dialysis given that kidney function has started to improve since last night. Nevertheless, if at some point his kidney function remains low and not improving and he becomes more volume overloaded then dialysis will be offered. It remains to be seen if he will continue to improve in the next few days. DT: 15:04:50 TT: 16:34:00 Ref: [id number] - TID: [id number] MTDD
[2025-01-17 07:22] LABS: Hepatitis A Antibody IgM Non Reactive (Non React); Hepatitis B Core Antibody IgM Non Reactive (Non React); Hepatitis B Surface Ab Reactive (Immune) (Immune); Hepatitis B Surface Antigen Non Reactive (Non React); Hepatitis C Antibody Equivocal (Non React)
[2025-01-17] MEDS: DOXYCYCLINE INJ 100 MG in SODIUM CHLORIDE 0.9% (POP) 100 ML IV ×2 (08:11→21:47)
[2025-01-17] MEDS: LINACLOTIDE 290 MCG PO (08:11)
[2025-01-17] MEDS: cefTRIAXone/D5w 1gm IV premix 1 GM/50 ML BAG IV (08:12)
[2025-01-17] MEDS: PANTOPRAZOLE 40 MG TABLET PO ×2 (08:13→21:47)
[2025-01-17] MEDS: FLECAINIDE ACET 50 MG TABLET 100 MG PO ×2 (08:34→21:48)
[2025-01-17] MEDS: BENZONATATE 100 MG CAPSULE 200 MG PO ×2 (09:25→23:50)
[2025-01-17] MEDS: Magnesium Sulfate 4 GM Ivpb 4 GM/50 ML BAG IV (09:25)
[2025-01-17 10:10] LABS: Ammonia < 10 uMol/L (11-32)
--- NOTE | 2025-01-17 10:33 | ESPR_ITS ---
RE: RONY DE LA ROSA : 1960 DATE OF SERVICE: 01/17/2025 HISTORY OF PRESENT ILLNESS: Briefly, he is a 64-year-old gentleman with malignant melanoma with metastasis to his lungs, on oral chemotherapy, who presented to the emergency room on 01/15/2025 with nausea, vomiting, and diarrhea. The patient also lost his appetite 2 weeks prior to admission and has not been drinking or eating as much. When he got admitted, his creatinine was 6 and he has a CO2 of 12.8. He was provided with IV fluids and creatinine started to improve from 6 to now 4.6. His CO2 is likewise improving from 12 to 15.3. The patient also made a good amount of urine. CURRENT MEDICATIONS: 1. Acetaminophen. 2. Benzonatate 200 mg p.o. q. 8. 3. Calcium carbonate 600 mg x1 4. Rocephin. 5. Diphenhydramine. 6. Doxycycline 100 mg IV b.i.d. 7. Flecainide acetate 100 mg p.o. q. 12. 8. Heparin 5000 units subsequently q. 8. 9. Lactated Ringers 1 liter. 10. Ondansetron. 11. Protonix 40 mg IV q.12. 12. Vancomycin 1 g x1 12. Sevelamer 800 mg x1 tablet. 13. Sodium bicarbonate. PHYSICAL EXAMINATION: General: He is awake, alert, and oriented. Vital Signs: Blood pressure of 146/77, heart rate of 74. HEENT: Anicteric sclerae. Normocephalic. Neck: Supple. no JVD. Chest and Lungs: Symmetrical expansion. Clear breath sounds. Heart: Without murmur. Abdomen: Soft and nontender. Distended. Extremities: No edema. LABORATORY DATA: Sodium 134, potassium 3.6, chloride 103, CO2 15.3, creatinine 4.6, calcium 8.4, phosphorus 4.9, [place] 8470 [place] [address], albumin 3.1. ASSESSMENT: 1. Acute kidney injury secondary to severe dehydration, now non-oliguric and rhabdomyolysis. 2. Acute rhabdomyolysis, unknown etiology, now improved. 3. History of malignant melanoma with metastasis to lungs. 4. Acidosis secondary to acute kidney injury and diarrhea with a touch of starvation ketoacidosis. 5. Failure to thrive. PLAN: Continue IV fluid for hydration. Continue monitoring urine output, kidney function, and CK levels. CK level is starting to go down now. There is no acute need for dialysis at this point. It seems like he is going through renal function recovery. DT: 09:55:07 TT: 10:20:00 Ref: [id number] - TID: [id number] MTDD
--- NOTE | 2025-01-17 13:31 | ESPR_ITS ---
Documentation for date of: 01/17/25 Subjective Subjective Interval history: 01/17/2025: Overnight patient developed some confusion but was reoriented. This morning, patient also initially appeared confused but was able to answer questions somewhat appropriately. Patient recently switched rooms in the hospital which could potentially be causing some degree of confusion. Patient's kidney function is improving with IV fluids and we will continue current management. Nephrology and oncology on board, appreciate recommendations. Will continue to monitor patient for any acute changes. Exam Vital Signs Temp Pulse Resp BP Pulse Ox O2 Del Method 97.1 F 84 20 146/77 H 99 Room Air 01/17/25 08:00 01/17/25 11:54 01/17/25 08:00 01/17/25 08:34 01/17/25 08:00 01/17/25 08:00 Narrative Exam Physical Exam: General: Elderly male, No acute distress, cooperative HEENT: NCAT, No JVD noted. Mucosa dry. Pupils are equal and reactive to light bilaterally Cardiovascular: Normal S1 and S2. Regular rate and rhythm. Respiratory: Lungs are clear to auscultation bilaterally. No wheezing or crackles heard. Abdomen: Soft, nontender, not distended, normal bowel sounds. Abdominal scar from surgery. Skin: Warm to touch, dry, no rashes noted, scar on right shoulder from melanoma surgery. Musculoskeletal: No gross injuries. Able to move all 4 extremities. No pitting edema Neuro: Alert and oriented x3. No focal neuro deficits. Objective Labs 01/18/25 05:00 01/18/25 05:17 Labs: Laboratory Results - last 24 hr 01/16/25 01/16/25 01/17/25 14:13 18:45 01:24 WBC RBC Hgb 9.6 L Hct 25.8 L MCV MCH MCHC RDW Std Deviation Plt Count Neut % (Auto) Lymph % (Auto) [place] % (Auto) Eos % (Auto) Baso % (Auto) Neut # (Auto) Lymph # (Auto) [place] # (Auto) Eos # (Auto) Baso # (Auto) Immature Gran # (Auto) Absolute Nucleated RBC Immature Gran % Nucleated RBC % Sodium 128 L 127 L 134 L Potassium 3.1 L 3.4 3.4 Chloride 97 L 98 102 Carbon Dioxide 15.6 L 15.3 L 17.0 L Anion Gap 15 14 15 BUN 64 H 57 H 57 H Creatinine 5.4 H* 5.3 H* 4.8 H* D Estim Creat Clear Calc 12.2 L 12.4 L 13.7 L eGFR 11 L* 11 L* 13 L* BUN/Creatinine Ratio 12 11 L 12 Glucose 107 H 129 H 91 Calculated Osmolality 275 273 L 284 Calcium 7.2 L 7.6 L 7.5 L Corrected Calcium 8.0 L 8.3 L 8.1 L Phosphorus 4.6 5.1 4.5 Ammonia Total Creatine Kinase Albumin 3.0 L 3.1 L 3.2 L Hepatitis A IgM Ab Hep Bs Antigen Hep Bs Antibody Hep B Core IgM Ab Hepatitis C Antibody 01/17/25 01/17/25 04:36 09:39 WBC 4.8 RBC 3.15 L Hgb 9.4 L Hct 25.9 L MCV 82 MCH 29.8 MCHC 36.3 RDW Std Deviation 52.0 H Plt Count 137 L D Neut % (Auto) 87 H Lymph % (Auto) 10 [place] % (Auto) 2 Eos % (Auto) 0 Baso % (Auto) 0 Neut # (Auto) 4.2 Lymph # (Auto) 0.5 L [place] # (Auto) 0.1 Eos # (Auto) 0.0 Baso # (Auto) 0.0 Immature Gran # (Auto) 0.03 H Absolute Nucleated RBC 0.00 Immature Gran % 1 H Nucleated RBC % 0 Sodium 134 L Potassium 3.6 Chloride 103 Carbon Dioxide 15.3 L Anion Gap 16 BUN 50 H Creatinine 4.6 H* Estim Creat Clear Calc 14.3 L eGFR 14 L* BUN/Creatinine Ratio 11 L Glucose 84 Calculated Osmolality 280 Calcium 7.7 L Corrected Calcium 8.4 L Phosphorus 4.9 Ammonia < 10 L Total Creatine Kinase 8470 H D Albumin 3.1 L Hepatitis A IgM Ab Non Reactive Hep Bs Antigen Non Reactive Hep Bs Antibody Reactive (Immune) Hep B Core IgM Ab Non Reactive Hepatitis C Antibody Equivocal ABG Interpretation ABG results: 01/15/25 01/16/25 20:26 07:15 ABG pH 7.29 L 7.28 L ABG pCO2 23 L 27 L ABG pO2 114 H 119 H ABG HCO3 11 L 12 L ABG O2 Saturation 99 H 99 H ABG Base Excess -14 L -13 L Quality Measures Quality Measures VTE prophylaxis Assessment & Plan Assessment Current Active Medications: Generic Name Dose Route Start Last Admin Trade Name Freq PRN Reason Stop Dose Admin Acetaminophen 650 mg 01/15/25 21:11 Acetaminophen 325 Mg Tablet PO 02/14/25 21:10 Q6H PRN Fever >100.3 or pain Benzonatate 200 mg 01/17/25 08:41 01/17/25 09:25 Benzonatate 100 Mg Capsule PO 02/16/25 08:40 200 mg Q8HR PRN Administration COUGH Protocol (Linaclotide [ 0 ea 01/17/25 09:00 01/17/25 08:11 Linzess] 290 Mcg PO 02/16/25 08:59 1 capsule Capsule) QDAY GILBERT Administration (Eszopiclone [ 0 ea 01/16/25 21:00 01/16/25 21:02 Lunesta] 2 Mg Tablet PO 02/15/25 20:59 1 tablet ) HS PRN Administration SLEEPLESSNESS Diphenhydramine HCl 25 mg 01/15/25 23:28 01/16/25 21:32 Diphenhydramine 25 Mg Capsule PO 02/14/25 23:27 25 mg Q6H PRN Administration Skin Irritation Flecainide Acetate 100 mg 01/15/25 23:45 01/17/25 08:34 Flecainide Acet 50 Mg Tablet PO 02/14/25 23:44 100 mg Q12HR GILBERT Administration Heparin Sodium (Porcine) 5,000 unit 01/15/25 22:00 01/17/25 13:18 Heparin Sod Inj 5000 Unit/Ml Vial SC 01/29/25 21:59 5,000 unit Q8HR GILBERT Administration Ceftriaxone Sodium/Dextrose 1 gm in 50 mls @ 100 mls/hr 01/16/25 09:00 01/17/25 08:12 Rocephin/D5w 1gm Iv Premix IV 01/23/25 08:59 100 mls/hr QDAY GILBERT Administration Sodium Chloride 1,000 mls @ 150 mls/hr 01/16/25 12:15 01/17/25 08:12 Ns IV 02/15/25 12:14 150 mls/hr .Q6H40M GILBERT Administration Doxycycline Hyclate 100 mg/ 100 mls @ 100 mls/hr 01/16/25 21:00 01/17/25 08:11 Sodium Chloride IV 01/23/25 20:59 100 mls/hr BID GILBERT Administration Ondansetron HCl 4 mg 01/15/25 21:11 01/16/25 14:08 Ondansetron Inj 2 Mg/Ml Inj 2 Ml IV 02/14/25 21:10 4 mg Q6H PRN Administration NAUSEA OR VOMITING Protocol Pantoprazole Sodium 40 mg 01/15/25 23:30 01/17/25 08:13 Pantoprazole 40 Mg Tablet PO 02/14/25 23:29 40 mg Q12HR GILBERT Administration Pharmacy Consult 1 each 01/15/25 21:16 Pharmacy Renal Dose Adjustment 1 Ea XX 02/14/25 21:15 PRN PRN CONSULT Scopolamine 1 mg 01/16/25 13:30 01/16/25 14:07 Scopolamine 1 Mg Tdsy TOP 02/15/25 13:29 1 mg Q3D GILBERT Administration Sennosides 1 tab 01/15/25 21:11 Senna Tablet PO 02/14/25 21:10 QDAY PRN constipation Protocol Plan 64 yr male with PMH of hypertension, hyperlipidemia, A-fib, malignant melanoma with mets to the lung presenting to ED due to dry cough chills for the past 1 week. Patient stated that he has not had any recent travel or around any sick contacts. Dr. Rabago was consulted for CRIS. Patient will be admitted for management of rhabdomyolysis, CRIS. #Rhabdomyolysis #Hx malignant melanoma Differentials include: Prolonged immobility, dehydration, hyperthermia, medication-induced (statin), chemotherapy induced myopathy less likely to be myocardial infarction or infection CK >1300. Possibly due to SE of cancer medication, atovastatin however he denied any muscle pain. UA positive for blood but RBCs also present. Takes Trametinib and Dabrafenib. Follows Dr. Dela Cruz outpatient. Initial chest x-ray was negative for any active disease EKG showed normal sinus rhythm with first-degree AV block and no concerning ST changes noted CT of the chest showed 14-50 mm pulmonary nodules in the left lower lobe CT abdomen pelvis showed mild perinephric stranding, no liver lesions Plan: Will hold patient's chemotherapy medications Continue fluids Monitor urine output; Euceda in Follow up with lab for exact CK levels Hold statin #Acute renal failure #Anion gap metabolic acidosis BUN 64, Cr 6.0 on admisison, BUN/Cr 11 indicating intra renal cause, rhabdomyolysis may also be causing CRIS. Possible component of prerenal in setting of hypotension with hypoperfusion and as evidenced by elevated LFTs. However no source of infection. Blood pressure did improve with fluids. AG 19, bicarb 13, ABG ph 7.29, Co2 23. BHB 1.9. Appropriate CO2 compensation 26?30 base of Romero formula. Ddx: ketosis, uremia Plan: Dr Rabago, nephrology, consulted appreciate recommendations Continue IV fluid resuscitation Avoid nephrotoxic agents Monitor with morning labs #Elevated liver enzymes, downtrending AST 600, ALT 125. Seen as side effect from Trametinib vs in setting of rhabo Plan: Monitor with morning labs #NSTEMI II, elevated troponins #Atrial fibrillation #Hypertension #Hyperlipidemia Patient on home clonidine 0.1 mg p.o. twice daily, diltiazem 20 pulmonary milligram every morning, flecainide 100 mg p.o. every 12 hours, losartan 50 mg p.o. twice daily, metoprolol succinate 50 mg p.o. twice daily? Initially when patient came in troponins were moderately elevated from 0.396 => 0.407=> 0.33 => 0.217 => 0.152 Patient does have cardiac history as noted Plan: Stop trending troponin as they have peaked and downtrended Will restart home medications when appropriate Hospital Management: Lines: PIV, Euceda Diet: Regular Bowel: Senna GI prophylaxis: Not needed DVT prophylaxis: Heparin subcu Dispo: IV fluid resuscitation rhabdomyolysis nephrology consultation for possible need for dialysis for ARF Code: Full Patient seen and assessed with Dr. Eunice Card, PGY-1 Attending Provider Attestation/Addendum 64-year-old male with atrial fibrillation not on Eliquis for unknown reasons, malignant melanoma with mets to the lungs on chemotherapy who presented to the ER with dry cough found to have rhabdomyolysis with subsequent acute kidney injury and high anion gap metabolic acidosis. Plan to continue aggressive IV fluid resuscitation and monitor kidney function with subsequent electrolytes closely. Of note, did a thorough physical exam with no evidence of any skin lesions other than 2 minor bruises in the paraspinal area, unlikely causing rhabdomyolysis at this significance. As for A-fib, well-controlled and patient did have a slight bump in troponins with a peak at 0.407 however down trended. Continue aggressive IV fluid resuscitation and monitor kidney function closely and appreciate nephrology input.overnight, patient kidney function improving and rhabdomyolysis improving as well with a CK downtrending from 15,000->8000. Continue aggressive IV fluid resuscitation for now. I reviewed above note and agree with findings and plans. I have also personally examined the patient with medicine team and went over assessment and plan with medical team including international marketing executive and resident physician.
[2025-01-17 13:37] LABS: Albumin, Serum 3.3 gm/dL (3.4-4.8); Anion Gap 16 (7-16); BUN/Creatinine Ratio 11 Ratio (12-20); Blood Urea Nitrogen 47 mg/dL (9-23); Calcium 8.1 mg/dL (8.3-10.6); Calcium (Corrected) 8.7 mg/dL (8.5-10.1); Chloride 108 mMol/L (98-107); Creatinine (Component) 4.2 mg/dL (0.6-1.3); Estimated Creatinine Clearance 15.1 mL/min (>60); Glucose 120 mg/dL (74-106); Osmolality,Calculated 288 (275-295); Phosphorous 4.2 mg/dL (2.4-5.1); Potassium 3.5 mMol/L (3.4-5.1); Sodium 138 mMol/L (136-145); eGFR 15 See Note
[2025-01-17 14:08] LABS: Carbon Dioxide 14.2 mMol/L (20.0-31.0)
--- NOTE | 2025-01-17 15:04 | PC.SS ---
Addendum entered by Heide Lvei 01/17/25 16:13: Follow up note: PT completed eval and recommended SNF short term. SS will submit on [facility]. Original Note: Follow up note: Patient remains altered. He is from home and resides alone. Patient has dx: CRIS. No dialysis needed. I.v. fluid hydration. Patient may need short stay at SNF. SS requested PT eval to determine.
--- NOTE | 2025-01-17 20:35 | PC.NURSE ---
Dr. Watkins made aware pts carbon dioxide is 14.2, she will put in order.
[2025-01-17 21:39] LABS: Base Excess -7 (-3-3); HCO3 17 mEq/L (20-26); Inspired Oxygen, FIO2 21 %; O2 Saturation 98 % (91-98); PCO2 30 mmHg (32.0-48.0); PO2 92 mmHg (83-108); pH, Arterial 7.36 (7.35-7.45)
[2025-01-17 21:40] LABS: Allen Test Performed/OK; Puncture Site Left Radial
[2025-01-17] MEDS: ESZOPICLONE 2 MG PO (21:49)
[2025-01-17] MEDS: RINGERS LACTATED 1000 ML 1,000 ML 150 ML IV (21:59)
[2025-01-17] MEDS: DiphenhydrAMINE 25 MG CAPSULE PO (22:37)
[2025-01-18] VITALS (13 sets, daily range): BP systolic 147–165; BP diastolic 70–85; PULSE 67–84; RESP 18–96; TEMP 36.2–36.8; O2SAT 95–100
[2025-01-18 05:46] LABS: Basophils % (Auto) 1 % (0-2.5); Eosinophils # (Auto) 0.1 Thou/mm3 (0.0-0.5); Eosinophils % (Auto) 2 % (0-10); Hematocrit 27.6 % (41.0-53.0); Hemoglobin 9.7 g/dL (13.5-16.0); Immature Granulocytes % (Auto) 1 % (0-0); Immature Granulocytes Auto 0.03 Thou/mm3 (0.00-0.00); Lymphocytes # (Auto) 0.5 Thou/mm3 (1.0-4.8); Lymphocytes % (Auto) 16 % (10-50); Mean Corpuscular HGB Conc 35.1 g/dl (31.0-37.0); Mean Corpuscular Hemoglobin 30.1 pg (25.0-35.0); Mean Corpuscular Volume 86 fL (80-100); Monocytes # (Auto) 0.2 Thou/mm3 (0.0-0.8); Monocytes % (Auto) 5 % (0-12); Neutrophils # (Auto) 2.2 Thou/mm3 (1.8-7.7); Neutrophils % (Auto) 75 % (37-80); Nucleated Red Blood Cell % 0 /100 WBC (0); Platelet Count 138 Thou/mm3 (140-440); RDW Standard Deviation 54.4 fL (35.1-43.9); Red Blood Count 3.22 Miln/mm3 (4.50-5.90)
[2025-01-18] MEDS: HEPARIN SOD INJ 5000 UNIT/ML VIAL SC ×3 (05:48→21:15)
[2025-01-18] MEDS: PANTOPRAZOLE 40 MG TABLET PO ×2 (09:12→20:10)
[2025-01-18] MEDS: LINACLOTIDE 290 MCG PO (09:12)
[2025-01-18] MEDS: cefTRIAXone/D5w 1gm IV premix 1 GM/50 ML BAG IV (09:13)
[2025-01-18] MEDS: FLECAINIDE ACET 50 MG TABLET 100 MG PO ×2 (09:13→20:10)
[2025-01-18 09:45] LABS: Creatine Kinase 4922 U/L (34-171)
[2025-01-18] MEDS: DOXYCYCLINE INJ 100 MG in SODIUM CHLORIDE 0.9% (POP) 100 ML IV ×2 (09:55→21:17)
[2025-01-18 11:07] LABS: Anion Gap 14 (7-16); BUN/Creatinine Ratio 13 Ratio (12-20); Blood Urea Nitrogen 40 mg/dL (9-23); Calcium 7.7 mg/dL (8.3-10.6); Calcium (Corrected) 8.5 mg/dL (8.5-10.1); Carbon Dioxide 16.7 mMol/L (20.0-31.0); Chloride 113 mMol/L (98-107); Creatinine (Component) 3.1 mg/dL (0.6-1.3); Estimated Creatinine Clearance 22.1 mL/min (>60); Glucose 110 mg/dL (74-106); Osmolality,Calculated 297 (275-295); Phosphorous 3.6 mg/dL (2.4-5.1); Potassium 3.6 mMol/L (3.4-5.1); Sodium 144 mMol/L (136-145); eGFR 22 See Note
--- NOTE | 2025-01-18 11:28 | PD.RESPRO ---
Documentation for date of: 01/18/25 Subjective Subjective Interval history: 01/18/2025: No acute overnight events to report. Patient seen and assessed in hospital bed reporting improvement in presenting symptoms and denies having any concerning symptoms. Patient's kidney function continues to improve and monitoring of creatinine kinase shows improvement as well. Will continue current treatment of IV fluid resuscitation and will restart patient's metoprolol succinate 25 mg as his blood pressures have been on the higher side; moreover, we will hold remaining antihypertensives at this time and reassess. Exam Vital Signs Temp Pulse Resp BP Pulse Ox O2 Del Method 97.2 F 75 21 H 154/79 H 97 Room Air 01/18/25 08:00 01/18/25 09:13 01/18/25 08:00 01/18/25 09:13 01/18/25 08:00 01/18/25 08:00 Narrative Exam Physical Exam: General: Elderly male, No acute distress, cooperative HEENT: NCAT, No JVD noted. Mucosa dry. Pupils are equal and reactive to light bilaterally Cardiovascular: Normal S1 and S2. Regular rate and rhythm. Respiratory: Lungs are clear to auscultation bilaterally. No wheezing or crackles heard. Abdomen: Soft, nontender, not distended, normal bowel sounds. Abdominal scar from surgery. Skin: Warm to touch, dry, no rashes noted, scar on right shoulder from melanoma surgery. Musculoskeletal: No gross injuries. Able to move all 4 extremities. No pitting edema Neuro: Alert and oriented x3. No focal neuro deficits. Objective Labs 01/18/25 05:00 01/18/25 05:17 Labs: Laboratory Results - last 24 hr 01/17/25 01/17/25 01/18/25 13:00 21:22 05:00 WBC 3.0 L RBC 3.22 L Hgb 9.7 L Hct 27.6 L MCV 86 MCH 30.1 MCHC 35.1 RDW Std Deviation 54.4 H Plt Count 138 L Neut % (Auto) 75 Lymph % (Auto) 16 [place] % (Auto) 5 Eos % (Auto) 2 Baso % (Auto) 1 Neut # (Auto) 2.2 Lymph # (Auto) 0.5 L [place] # (Auto) 0.2 Eos # (Auto) 0.1 Baso # (Auto) 0.0 Immature Gran # (Auto) 0.03 H Absolute Nucleated RBC 0.00 Immature Gran % 1 H Nucleated RBC % 0 Puncture Site Left Radial ABG pH 7.36 ABG pCO2 30 L ABG pO2 92 D ABG HCO3 17 L ABG O2 Saturation 98 ABG Base Excess -7 L FiO2 21 Sodium 138 Potassium 3.5 Chloride 108 H Carbon Dioxide 14.2 L* Anion Gap 16 BUN 47 H Creatinine 4.2 H* Estim Creat Clear Calc 15.1 L eGFR 15 L BUN/Creatinine Ratio 11 L Glucose 120 H Calculated Osmolality 288 Calcium 8.1 L Corrected Calcium 8.7 Phosphorus 4.2 Total Creatine Kinase Albumin 3.3 L 01/18/25 05:17 WBC RBC Hgb Hct MCV MCH MCHC RDW Std Deviation Plt Count Neut % (Auto) Lymph % (Auto) [place] % (Auto) Eos % (Auto) Baso % (Auto) Neut # (Auto) Lymph # (Auto) [place] # (Auto) Eos # (Auto) Baso # (Auto) Immature Gran # (Auto) Absolute Nucleated RBC Immature Gran % Nucleated RBC % Puncture Site ABG pH ABG pCO2 ABG pO2 ABG HCO3 ABG O2 Saturation ABG Base Excess FiO2 Sodium 144 Potassium 3.6 Chloride 113 H Carbon Dioxide 16.7 L Anion Gap 14 BUN 40 H Creatinine 3.1 H D Estim Creat Clear Calc 22.1 L eGFR 22 L BUN/Creatinine Ratio 13 Glucose 110 H Calculated Osmolality 297 H Calcium 7.7 L Corrected Calcium 8.5 Phosphorus 3.6 Total Creatine Kinase 4922 H D Albumin 3.0 L ABG Interpretation ABG results: 01/15/25 01/16/25 01/17/25 20:26 07:15 21:22 ABG pH 7.29 L 7.28 L 7.36 ABG pCO2 23 L 27 L 30 L ABG pO2 114 H 119 H 92 D ABG HCO3 11 L 12 L 17 L ABG O2 Saturation 99 H 99 H 98 ABG Base Excess -14 L -13 L -7 L Quality Measures Quality Measures VTE prophylaxis Assessment & Plan Assessment Current Active Medications: Generic Name Dose Route Start Last Admin Trade Name Freq PRN Reason Stop Dose Admin Acetaminophen 650 mg 01/15/25 21:11 Acetaminophen 325 Mg Tablet PO 02/14/25 21:10 Q6H PRN Fever >100.3 or pain Benzonatate 200 mg 01/17/25 08:41 01/17/25 23:50 Benzonatate 100 Mg Capsule PO 02/16/25 08:40 200 mg Q8HR PRN Administration COUGH Protocol (Linaclotide [ 0 ea 01/17/25 09:00 01/18/25 09:12 Linzess] 290 Mcg PO 02/16/25 08:59 1 capsule Capsule) QDAY GILBERT Administration (Eszopiclone [ 0 ea 01/16/25 21:00 01/17/25 21:49 Lunesta] 2 Mg Tablet PO 02/15/25 20:59 1 tablet ) HS PRN Administration SLEEPLESSNESS Diphenhydramine HCl 25 mg 01/15/25 23:28 01/17/25 22:37 Diphenhydramine 25 Mg Capsule PO 02/14/25 23:27 25 mg Q6H PRN Administration Skin Irritation Flecainide Acetate 100 mg 01/15/25 23:45 01/18/25 09:13 Flecainide Acet 50 Mg Tablet PO 02/14/25 23:44 100 mg Q12HR GILBERT Administration Heparin Sodium (Porcine) 5,000 unit 01/15/25 22:00 01/18/25 05:48 Heparin Sod Inj 5000 Unit/Ml Vial SC 01/29/25 21:59 5,000 unit Q8HR GILBERT Administration Ceftriaxone Sodium/Dextrose 1 gm in 50 mls @ 100 mls/hr 01/16/25 09:00 01/18/25 10:38 Rocephin/D5w 1gm Iv Premix IV 01/23/25 08:59 Infused QDAY GILBERT Infusion Doxycycline Hyclate 100 mg/ 100 mls @ 100 mls/hr 01/16/25 21:00 01/18/25 09:55 Sodium Chloride IV 01/23/25 20:59 100 mls/hr BID GILBERT Administration Ondansetron HCl 4 mg 01/15/25 21:11 01/16/25 14:08 Ondansetron Inj 2 Mg/Ml Inj 2 Ml IV 02/14/25 21:10 4 mg Q6H PRN Administration NAUSEA OR VOMITING Protocol Pantoprazole Sodium 40 mg 01/15/25 23:30 01/18/25 09:12 Pantoprazole 40 Mg Tablet PO 02/14/25 23:29 40 mg Q12HR GILBERT Administration Pharmacy Consult 1 each 01/15/25 21:16 Pharmacy Renal Dose Adjustment 1 Ea XX 02/14/25 21:15 PRN PRN CONSULT Scopolamine 1 mg 01/16/25 13:30 01/16/25 14:07 Scopolamine 1 Mg Tdsy TOP 02/15/25 13:29 1 mg Q3D GILBERT Administration Sennosides 1 tab 01/15/25 21:11 Senna Tablet PO 02/14/25 21:10 QDAY PRN constipation Protocol Plan 64 yr male with PMH of hypertension, hyperlipidemia, A-fib, malignant melanoma with mets to the lung presenting to ED due to dry cough chills for the past 1 week. Patient stated that he has not had any recent travel or around any sick contacts. Dr. Rabago was consulted for CRIS. Patient will be admitted for management of rhabdomyolysis, CRIS. #Rhabdomyolysis #Hx malignant melanoma Differentials include: Prolonged immobility, dehydration, hyperthermia, medication-induced (statin), chemotherapy induced myopathy less likely to be myocardial infarction or infection CK >1300. Possibly due to SE of cancer medication, atovastatin however he denied any muscle pain. UA positive for blood but RBCs also present. Takes Trametinib and Dabrafenib. Follows Dr. Dela Cruz outpatient. Initial chest x-ray was negative for any active disease EKG showed normal sinus rhythm with first-degree AV block and no concerning ST changes noted CT of the chest showed 14-50 mm pulmonary nodules in the left lower lobe CT abdomen pelvis showed mild perinephric stranding, no liver lesions Patient has net -1 L since admission Plan: Will hold patient's chemotherapy medications Continue fluids Monitor urine output; Euceda in Follow up with lab for exact CK levels Hold statin #Acute renal failure #Anion gap metabolic acidosis BUN 64, Cr 6.0 on admisison, BUN/Cr 11 indicating intra renal cause, rhabdomyolysis may also be causing CRIS. Possible component of prerenal in setting of hypotension with hypoperfusion and as evidenced by elevated LFTs. However no source of infection. Blood pressure did improve with fluids. AG 19, bicarb 13, ABG ph 7.29, Co2 23. BHB 1.9. Appropriate CO2 compensation 26?30 base of Romero formula. Ddx: ketosis, uremia Plan: Dr Rabago, nephrology, consulted appreciate recommendations Continue IV fluid resuscitation Avoid nephrotoxic agents Monitor with morning labs #Elevated liver enzymes, downtrending AST 600, ALT 125. Seen as side effect from Trametinib vs in setting of rhabo Plan: Monitor with morning labs #NSTEMI II, elevated troponins #Atrial fibrillation #Hypertension #Hyperlipidemia Patient on home clonidine 0.1 mg p.o. twice daily, diltiazem 20 pulmonary milligram every morning, flecainide 100 mg p.o. every 12 hours, losartan 50 mg p.o. twice daily, metoprolol succinate 50 mg p.o. twice daily? Initially when patient came in troponins were moderately elevated from 0.396 => 0.407=> 0.33 => 0.217 => 0.152 Patient does have cardiac history as noted Plan: Stop trending troponin as they have peaked and downtrended Restarted patient's metoprolol succinate 25 mg p.o. daily, will hold remaining medications and reassess Hospital Management: Lines: PIV, Euceda Diet: Regular Bowel: Senna GI prophylaxis: Not needed DVT prophylaxis: Heparin subcu Dispo: IV fluid resuscitation rhabdomyolysis nephrology consultation for possible need for dialysis for ARF Code: Full Patient seen and assessed with Dr. Eunice Card, PGY-1 Attending Provider Attestation/Addendum 64-year-old male with atrial fibrillation not on Eliquis for unknown reasons, malignant melanoma with mets to the lungs on chemotherapy who presented to the ER with dry cough found to have rhabdomyolysis with subsequent acute kidney injury and high anion gap metabolic acidosis. Plan to continue aggressive IV fluid resuscitation and monitor kidney function with subsequent electrolytes closely. Of note, did a thorough physical exam with no evidence of any skin lesions other than 2 minor bruises in the paraspinal area, unlikely causing rhabdomyolysis at this significance. As for A-fib, well-controlled and patient did have a slight bump in troponins with a peak at 0.407 however down trended. Continue aggressive IV fluid resuscitation and monitor kidney function closely and appreciate nephrology input.overnight, patient kidney function improving and rhabdomyolysis improving as well with a CK downtrending from 15,000->8000->4000. Continue aggressive IV fluid resuscitation for now. I reviewed above note and agree with findings and plans. I have also personally examined the patient with medicine team and went over assessment and plan with medical team including manager of internal audit and resident physician.
[2025-01-18] MEDS: METOPROLOL SUCCINATE XL 25 MG TABCR PO (12:40)
--- NOTE | 2025-01-18 14:02 | ESPR_ITS ---
RE: RONY DE LA ROSA : 1960 DATE OF SERVICE: 01/18/2025 HISTORY OF PRESENT ILLNESS: He is 64-year-old gentleman with malignant melanoma with metastasis to his lungs on oral chemotherapy who presented to the emergency room on 01/15/2025 with nausea, vomiting, and diarrhea. The patient lost his appetite 2 weeks prior to his admission and has not been drinking or eating as much. The patient was also having diarrhea. He had a bowel movement today and his stools looked like black tarry stools. When he was admitted, his creatinine was 6 and now at 3.1. He maintains good urine output. ALLERGIES: NO KNOWN DRUG ALLERGIES. CURRENT MEDICATIONS: 1. Acetaminophen. 2. Benzonatate. 3. Calcium carbonate. 4. Rocephin. 5. Diphenhydramine. 6. Doxycycline 100 mg IV b.i.d. 7. Flecainide acetate 100 mg p.o. q.12h. 8. Heparin 5000 units subcutaneously q.8h. 9. Lactated Ringers 1 liter. 10. Ondansetron. 11. Protonix. 12. Vancomycin. 13. Sevelamer. 14. Sodium bicarbonate. PHYSICAL EXAMINATION: General: He is awake and alert. Vital Signs: Blood pressure 156/80. LABORATORY DATA: Sodium 144, potassium 3.6, chloride 113, CO2 16.7, BUN 40, creatinine 3.1, glucose 110, calcium 8.5, phosphorus 3.6, hemoglobin 9.7, WBC 3000, platelet count 138,000. ASSESSMENT: 1. Non Oliguric Acute kidney injury secondary to severe dehydration 2. Acute rhabdomyolysis, unknown etiology, now improved. 3. History of malignant melanoma with metastasis to lungs. 4. Acidosis secondary to acute kidney injury and diarrhea, now improving. 5. Failure to thrive. PLAN: Continue IV fluids. Continue monitoring kidney function. I will also obtain stool guaiac x1 to rule out GI bleeding. DT: 13:03:49 TT: 14:00:00 Ref: [id number] - TID: [id number] MTDD
[2025-01-18] MEDS: ESZOPICLONE 2 MG PO (21:18)
[2025-01-19] VITALS (12 sets, daily range): BP systolic 146–167; BP diastolic 71–92; PULSE 60–92; RESP 18–21; TEMP 36.5–36.9; O2SAT 94–99; BMI 26.4; BMI 14.0
[2025-01-19] MEDS: HEPARIN SOD INJ 5000 UNIT/ML VIAL SC ×2 (05:18→14:19)
[2025-01-19 06:00] LABS: Basophils % (Auto) 1 % (0-2.5); Eosinophils # (Auto) 0.1 Thou/mm3 (0.0-0.5); Eosinophils % (Auto) 6 % (0-10); Hematocrit 28.7 % (41.0-53.0); Immature Granulocytes % (Auto) 1 % (0-0); Immature Granulocytes Auto 0.02 Thou/mm3 (0.00-0.00); Immature Reticulocyte Fraction 12.3 % (2.3-13.4); Lymphocytes # (Auto) 0.6 Thou/mm3 (1.0-4.8); Lymphocytes % (Auto) 28 % (10-50); Mean Corpuscular HGB Conc 34.8 g/dl (31.0-37.0); Mean Corpuscular Hemoglobin 30.3 pg (25.0-35.0); Mean Corpuscular Volume 87 fL (80-100); Monocytes # (Auto) 0.3 Thou/mm3 (0.0-0.8); Monocytes % (Auto) 15 % (0-12); Neutrophils % (Auto) 49 % (37-80); Nucleated Red Blood Cell % 0 /100 WBC (0); Platelet Count 108 Thou/mm3 (140-440); RDW Standard Deviation 56.8 fL (35.1-43.9); Reticulocyte % (Auto) 0.4 % (0.5-1.5); Reticulocyte Absolute Auto 12.9 Biln/L (25.0-75.0); Reticulocyte Hgb Content 30.9 pg (28.0-35.0)
[2025-01-19 06:19] LABS: Path Review Blood Smear Sent to Pathologist
[2025-01-19 06:28] LABS: Alanine Aminotransferase 126 U/L (10-49); Albumin, Serum 3.1 gm/dL (3.4-4.8); Albumin/Globulin Ratio 1.2 (1.2-2.2); Alkaline Phosphatase 120 U/L (46-116); Anion Gap 11 (7-16); Aspartate Amino Transferase 315 U/L (0-34); BUN/Creatinine Ratio 13 Ratio (12-20); Bilirubin,Total 0.7 mg/dL (0.3-1.2); Blood Urea Nitrogen 28 mg/dL (9-23); Calcium 8.3 mg/dL (8.3-10.6); Carbon Dioxide 21.8 mMol/L (20.0-31.0); Chloride 109 mMol/L (98-107); Creatinine (Component) 2.1 mg/dL (0.6-1.3); Estimated Creatinine Clearance 32.6 mL/min (>60); Globulin 2.5 gm/dL (2.3-3.5); Glucose 109 mg/dL (74-106); Osmolality,Calculated 289 (275-295); Potassium 3.5 mMol/L (3.4-5.1); Sodium 142 mMol/L (136-145); Total Protein 5.6 gm/dL (5.7-8.2); eGFR 35 See Note
[2025-01-19 07:02] LABS: Iron 50 mcg/dL (65-175); Percent Iron Saturation 25 % (20-55); Total Iron Binding Capacity 193 mcg/dL (250-425); Unsaturated Iron Binding 143 (225-295)
[2025-01-19 07:56] LABS: Ferritin 14354 ng/mL (10.5-307.3)
[2025-01-19] MEDS: DOXYCYCLINE INJ 100 MG in SODIUM CHLORIDE 0.9% (POP) 100 ML IV (08:48)
[2025-01-19] MEDS: cefTRIAXone/D5w 1gm IV premix 1 GM/50 ML BAG IV (08:48)
[2025-01-19] MEDS: PANTOPRAZOLE 40 MG TABLET PO ×2 (08:49→21:36)
[2025-01-19] MEDS: FLECAINIDE ACET 50 MG TABLET 100 MG PO ×2 (08:49→21:36)
[2025-01-19] MEDS: METOPROLOL SUCCINATE XL 25 MG TABCR PO (08:49)
[2025-01-19] MEDS: LINACLOTIDE 290 MCG PO (08:49)
[2025-01-19] MEDS: ACETAMINOPHEN 325 MG TABLET 650 MG PO (10:20)
--- NOTE | 2025-01-19 11:47 | ESPR_ITS ---
Documentation for date of: 01/19/25 Subjective Subjective Interval history: 01/19/2025: No acute overnight events to report. Patient seen and examined in hospital bed reporting improvement in presenting symptoms. Patient's kidney function continues to improve and per nephrology the patient is okay to be discharged; however, the patient developed melena while in the hospital. Gastroenterology consulted for recommendations. Patient is hemoglobin is stable we will continue monitor for any acute changes. Patient also has improvement in mental status and is reportedly back to baseline; moreover, initial acute encephalopathy attributed likely secondary to uremic encephalopathy and acidosis which have now been resolved. Exam Vital Signs Temp Pulse Resp BP Pulse Ox O2 Del Method 97.7 F 70 18 155/82 H 96 Room Air 01/19/25 08:00 01/19/25 08:49 01/19/25 08:00 01/19/25 08:49 01/19/25 08:00 01/19/25 08:00 Narrative Exam Physical Exam: General: Elderly male, No acute distress, cooperative HEENT: NCAT, No JVD noted. Mucosa dry. Pupils are equal and reactive to light bilaterally Cardiovascular: Normal S1 and S2. Regular rate and rhythm. Respiratory: Lungs are clear to auscultation bilaterally. No wheezing or crackles heard. Abdomen: Soft, nontender, not distended, normal bowel sounds. Abdominal scar from surgery. Skin: Warm to touch, dry, no rashes noted, scar on right shoulder from melanoma surgery. Musculoskeletal: No gross injuries. Able to move all 4 extremities. No pitting edema Neuro: Alert and oriented x3. No focal neuro deficits. Objective Labs 01/20/25 05:37 01/20/25 05:37 Labs: Laboratory Results - last 24 hr 01/19/25 05:32 WBC 2.0 L RBC 3.30 L Hgb 10.0 L Hct 28.7 L MCV 87 MCH 30.3 MCHC 34.8 RDW Std Deviation 56.8 H Plt Count 108 L D Neut % (Auto) 49 Lymph % (Auto) 28 [place] % (Auto) 15 H Eos % (Auto) 6 Baso % (Auto) 1 Neut # (Auto) 1.0 L Lymph # (Auto) 0.6 L [place] # (Auto) 0.3 Eos # (Auto) 0.1 Baso # (Auto) 0.0 Immature Gran # (Auto) 0.02 H Absolute Nucleated RBC 0.00 Immature Gran % 1 H Nucleated RBC % 0 Smear Path Review Sent to Pathologist Retic Count (auto) 0.4 L Absolute Retic 12.9 L Immature Retic Fraction 12.3 Retic Hgb Content CHr 30.9 Sodium 142 Potassium 3.5 Chloride 109 H Carbon Dioxide 21.8 Anion Gap 11 BUN 28 H Creatinine 2.1 H D Estim Creat Clear Calc 32.6 L eGFR 35 L BUN/Creatinine Ratio 13 Glucose 109 H Calculated Osmolality 289 Calcium 8.3 Corrected Calcium 9.0 Iron 50 L TIBC 193 L Iron Saturation 25 Unsat Iron Binding 143 L Ferritin 73546 H Total Bilirubin 0.7 AST 315 H ALT 126 H Alkaline Phosphatase 120 H D Total Protein 5.6 L Albumin 3.1 L Globulin 2.5 Albumin/Globulin Ratio 1.2 ABG Interpretation ABG results: 01/15/25 01/16/25 01/17/25 20:26 07:15 21:22 ABG pH 7.29 L 7.28 L 7.36 ABG pCO2 23 L 27 L 30 L ABG pO2 114 H 119 H 92 D ABG HCO3 11 L 12 L 17 L ABG O2 Saturation 99 H 99 H 98 ABG Base Excess -14 L -13 L -7 L Quality Measures Quality Measures VTE prophylaxis Assessment & Plan Assessment Current Active Medications: Generic Name Dose Route Start Last Admin Trade Name Freq PRN Reason Stop Dose Admin Acetaminophen 650 mg 01/15/25 21:11 01/19/25 10:20 Acetaminophen 325 Mg Tablet PO 02/14/25 21:10 650 mg Q6H PRN Administration Fever >100.3 or pain Benzonatate 200 mg 01/17/25 08:41 01/17/25 23:50 Benzonatate 100 Mg Capsule PO 02/16/25 08:40 200 mg Q8HR PRN Administration COUGH Protocol (Linaclotide [ 0 ea 01/17/25 09:00 01/19/25 08:49 Linzess] 290 Mcg PO 02/16/25 08:59 1 capsule Capsule) QDAY GILBERT Administration (Eszopiclone [ 0 ea 01/16/25 21:00 01/18/25 21:18 Lunesta] 2 Mg Tablet PO 02/15/25 20:59 1 tablet ) HS PRN Administration SLEEPLESSNESS Diphenhydramine HCl 25 mg 01/15/25 23:28 01/17/25 22:37 Diphenhydramine 25 Mg Capsule PO 02/14/25 23:27 25 mg Q6H PRN Administration Skin Irritation Doxycycline Hyclate 100 mg 01/19/25 21:00 Doxycycline 100 Mg Tablet PO 01/26/25 20:59 BID GILBERT Flecainide Acetate 100 mg 01/15/25 23:45 01/19/25 08:49 Flecainide Acet 50 Mg Tablet PO 02/14/25 23:44 100 mg Q12HR GILBERT Administration Heparin Sodium (Porcine) 5,000 unit 01/15/25 22:00 01/19/25 05:18 Heparin Sod Inj 5000 Unit/Ml Vial SC 01/29/25 21:59 5,000 unit Q8HR GILBERT Administration Ceftriaxone Sodium/Dextrose 1 gm in 50 mls @ 100 mls/hr 01/16/25 09:00 01/19/25 08:48 Rocephin/D5w 1gm Iv Premix IV 01/23/25 08:59 100 mls/hr QDAY GILBERT Administration Metoprolol Succinate 25 mg 01/18/25 11:45 01/19/25 08:49 Metoprolol Succinate Xl 25 Mg Tabcr PO 02/17/25 11:44 25 mg QDAY GILBERT Administration Ondansetron HCl 4 mg 01/15/25 21:11 01/16/25 14:08 Ondansetron Inj 2 Mg/Ml Inj 2 Ml IV 02/14/25 21:10 4 mg Q6H PRN Administration NAUSEA OR VOMITING Protocol Pantoprazole Sodium 40 mg 01/15/25 23:30 01/19/25 08:49 Pantoprazole 40 Mg Tablet PO 02/14/25 23:29 40 mg Q12HR GILBERT Administration Pharmacy Consult 1 each 01/15/25 21:16 Pharmacy Renal Dose Adjustment 1 Ea XX 02/14/25 21:15 PRN PRN CONSULT Scopolamine 1 mg 01/16/25 13:30 01/16/25 14:07 Scopolamine 1 Mg Tdsy TOP 02/15/25 13:29 1 mg Q3D GILBERT Administration Sennosides 1 tab 01/15/25 21:11 Senna Tablet PO 02/14/25 21:10 QDAY PRN constipation Protocol Plan 64 yr male with PMH of hypertension, hyperlipidemia, A-fib, malignant melanoma with mets to the lung presenting to ED due to dry cough chills for the past 1 week. Patient stated that he has not had any recent travel or around any sick contacts. Dr. Rabago was consulted for CRIS. Patient will be admitted for management of rhabdomyolysis, CRIS. #Melena #Normocytic anemia #Possible acute blood loss anemia? During hospitalization, patient has developed black stools without any blood per rectum FOBT positive Patient's hemoglobin of 10.0 with MCV of 8.7 is actually uptrending since hospitalization Reticulocyte count is down likely secondary to myelosuppression from chemotherapeutic agents Differentials include myelosuppression versus blood loss anemia Plan: GI consulted for recommendations #Rhabdomyolysis #Hx malignant melanoma Differentials include: Prolonged immobility, dehydration, hyperthermia, medication-induced (statin), chemotherapy induced myopathy less likely to be myocardial infarction or infection CK >1300. Possibly due to SE of cancer medication, atovastatin however he denied any muscle pain. UA positive for blood but RBCs also present. Takes Trametinib and Dabrafenib. Follows Dr. Dela Cruz outpatient. Initial chest x-ray was negative for any active disease EKG showed normal sinus rhythm with first-degree AV block and no concerning ST changes noted CT of the chest showed 14-50 mm pulmonary nodules in the left lower lobe CT abdomen pelvis showed mild perinephric stranding, no liver lesions Patient has net -1 L since admission Plan: Will hold patient's chemotherapy medications Continue fluids Monitor urine output; Ok in Follow up with lab for exact CK levels Hold statin #Acute renal failure, nearly resolved #Anion gap metabolic acidosis, resolved BUN 64, Cr 6.0 on admisison, BUN/Cr 11 indicating intra renal cause, rhabdomyolysis may also be causing CRIS. Possible component of prerenal in setting of hypotension with hypoperfusion and as evidenced by elevated LFTs. However no source of infection. Blood pressure did improve with fluids. AG 19, bicarb 13, ABG ph 7.29, Co2 23. BHB 1.9. Appropriate CO2 compensation 26?30 base of Romero formula. Ddx: ketosis, uremia Plan: Dr Rabago, nephrology, consulted appreciate recommendations Continue IV fluid resuscitation Avoid nephrotoxic agents Monitor with morning labs #Elevated liver enzymes, downtrending AST 600, ALT 125. Seen as side effect from Trametinib vs in setting of rhabo Plan: Monitor with morning labs #NSTEMI II, elevated troponins #Atrial fibrillation #Hypertension #Hyperlipidemia Patient on home clonidine 0.1 mg p.o. twice daily, diltiazem 20 pulmonary milligram every morning, flecainide 100 mg p.o. every 12 hours, losartan 50 mg p.o. twice daily, metoprolol succinate 50 mg p.o. twice daily? Initially when patient came in troponins were moderately elevated from 0.396 => 0.407=> 0.33 => 0.217 => 0.152 Patient does have cardiac history as noted Plan: Stop trending troponin as they have peaked and downtrended Continue patient's metoprolol succinate 25 mg p.o. daily, will hold remaining medications and reassess Hospital Management: Lines: PIV, Euceda Diet: Regular Bowel: Senna GI prophylaxis: Not needed DVT prophylaxis: Heparin subcu Dispo: GI consulted for possible GI bleed, IV fluid resuscitation rhabdomyolysis Code: Full Patient seen and assessed with Dr. Shamar Card, PGY-1 Attending Provider Attestation/Addendum Yina Rich DO, attest that I was physically present for the fay portions of the service and evaluated the patient with the resident and I reviewed and discussed the case with the resident and agree with the resident's findings and plans of care as documented above Patient seen and evaluated this AM. Patient states he is feeling well, but does not have much of an appetite. Patient has no active complaints. He does not recall why he was brought to the hospital. However, he is currently AAOx3. Renal function much improved. Encouraged PO intake and explained to patient concern for worsening of renal function again if he does not eat. Brother at bedside and states that the patient has been having waxing and waning of mental status since starting chemotherapy. Patient has been hallucinating and will call him at night at times. Suspect that his symptoms were likely due to uremia in the setting of acute renal failure resulting in altered mental status. He otherwise has no focal neurological deficits. He denied any shortness of breath or chest pain. Received call from nursing at 6pm stating that the patient had choked on some fish at dinner time. Patient was sitting up in bed eating carrot cake when I evaluated patient. Patient was able to speak full sentences and was not short of breath, able to protect airway. He had a mild dry cough otherwise. Per nurse, patient does have moments of confusion when having a long conversation. Speech is articulate and fluent, but can be tangential. Will order CT head to rule out any masses or acute intracranial findings. Patient does have malignant melanoma. There is concern for possible brain mets. If CT head is negative, may consider MRI, but will need contrast to asses for any masses which is not ideal for his current kidney function and may need to be deferred.
[2025-01-19] MEDS: SCOPOLAMINE 1 MG TDSY TOP (14:19)
--- NOTE | 2025-01-19 14:32 | ESPR_ITS ---
RE: RONY DE LA ROSA : 1960 DATE OF SERVICE: 01/19/2025 HISTORY OF PRESENT ILLNESS: This patient is a 64-year-old gentleman with malignant melanoma with metastasis to his lungs on oral chemotherapy who presented to the emergency room on 01/15/2025 with nausea, vomiting, and diarrhea. The patient lost his appetite 2 weeks prior to his admission and has not been drinking or eating as much. The patient also reported having diarrhea. His creatinine was 6 when he was admitted and now creatinine level is at 2.1. CURRENT MEDICATIONS: 1. Acetaminophen. 2. Benzonatate 200 mg p.o. every 8 hours. 3. Rocephin 1 g IV daily. 4. Benadryl. 5. Doxycycline 100 mg b.i.d. 6. Flecainide acetate 100 mg p.o. every 12 hours. 7. Metoprolol 25 mg p.o. daily. 8. Ondansetron 4 mg IV every 6 hours. 9. Protonix 40 mg IV every 12 hours. 10. Scopolamine. 11. Senna. PHYSICAL EXAMINATION: General: He is awake and alert. Vital Signs: Blood pressure of 155/82, heart rate of 68. HEENT: Anicteric sclera. Normocephalic. Neck: Supple. No JVD. Chest and Lungs: Symmetrical expansion. Clear breath sounds. Heart: Without murmur. Abdomen: Soft. Nontender. Extremities: No edema. LABORATORY DATA: Hemoglobin 10, WBC 2000, and platelet count 108,000. Sodium 142, potassium 3.5, chloride 109, CO2 of 21.8, BUN 28, creatinine 2.1, glucose 109, AST 315, ALT 126, albumin 3.1. ASSESSMENT: 1. Non-oliguric acute kidney injury secondary to severe dehydration, now improving. 2. Acute rhabdomyolysis, unknown etiology, now improved. 3. History of malignant melanoma with metastasis to lungs. 4. Acidosis secondary to acute kidney injury, now resolved. 5. Failure to thrive. 6. Elevated liver enzymes, now improved. PLAN: The patient's kidney function continues to improve. Continue monitoring his urine output and kidney function on a daily basis. DT: 13:08:03 TT: 14:31:00 Ref: [id number] - TID: [id number] MTDD
--- NOTE | 2025-01-19 15:51 | PC.SS ---
Follow up note: SS spoke to patient's brother, Duc, who agrees with [facility]. Patient was to d/c today, howver, patient is not eating and they need to monitor further. D/c plan is to [facility] once stable.
--- NOTE | 2025-01-19 18:02 | XR_ITS ---
Examination: CT brain head without contrast. 2-D sagittal coronal reconstructions Date and time of exam:January 19, 2025 1819 hours INDICATION: Altered mental status today CTDI: vol (mGy):45.6 DLP: (mGycm):911 Technique: Multiple CT axial sections of the brain have been obtained, 5 mm slice thickness. Contrast has not been administered. 2-D sagittal, coronal reconstructions have been obtained Low dose protocols were performed. One or more of the following dose reduction techniques were used; automated exposure control, adjustment of the mA and/or KV according to patient size, use of iterative reconstruction technique. Findings: No significant ventricular enlargement. Intra-axial or extra-axial hemorrhage density is not seen. No mass effect or midline shift Basal cisterns are not remarkable. Fourth ventricle is midline. Cranial vault intact. Impression: Negative for acute hemorrhage, mass effect or midline shift
--- NOTE | 2025-01-19 19:51 | PD.IMCONS ---
HPI Data of Consult Requesting Physician: Yina Ibanez DO Primary Care Provider: Physician No Primary/Family Consult Narrative Reason for consult: Melena FOBT positive History of present illness: 64 years old male evaluated at request of the internal medicine team Patient was admitted on 01/15/2025 with gross electrolyte normalities with a BUN of 64 creatinine of 6.0 CPK [id number] elevated troponin at 0.396 Abnormal LFTs a total bilirubin of 0.9 AST ALT 6125 and alk phos of 137 Presenting hemoglobin hematocrit at that time was 13.1 and 35.8 which subsequently went down to 9.4 and 25.8 and it is trending upwards to 10.0 and 28.7 Patient was able to be discharged home however he started having melanotic stools BUN/creatinine has improved CPK has improved LFTs are improving I have been consulted for melanotic stool and patient being FOBT positive Patient does have history of malignant melanoma undergoing immunotherapy cc:: cc: Yina Ibanez DO Review of Systems Review of Systems Systems Reviewed: All systems reviewed, normal except as documented Past Medical History Surgical History OTHER SURGICAL HX: As in the history of present illness Meds Home Medications and Allergies Home Medications ?Medication ?Instructions ?Recorded ?Confirmed ?Type losartan 100 mg tablet 50 mg PO BID #0 tabs 11/24/16 01/15/25 History flecainide 100 mg tablet 100 mg PO Q12H #0 tabs 01/19/17 01/15/25 History eszopiclone 2 mg tablet (Lunesta) 2 mg PO HS PRN SLEEPLESSNESS #0 05/27/17 01/15/25 History tabs metoprolol succinate 25 mg 50 mg PO BID 10/26/17 01/15/25 History tablet,extended release 24 hr acetaminophen 500 mg tablet 1,000 mg PO BID PRN fever or pain 02/01/18 01/15/25 History (Tylenol Extra Strength) diphenhydramine HCl 25 mg capsule 25 mg PO Q6H PRN Skin Irritation 12/06/20 01/15/25 History (Benadryl) methotrexate sodium 2.5 mg tablet 25 mg PO QWEEK 12/06/20 01/15/25 History pantoprazole 40 mg tablet,delayed 40 mg PO Q12H 12/06/20 01/15/25 History release atorvastatin 20 mg tablet 20 mg PO QDAY 06/10/23 01/15/25 History clonidine HCl 0.1 mg tablet 0.1 mg PO BID 06/10/23 01/15/25 History diltiazem HCl 240 mg capsule,24 240 mg PO QAM 07/19/24 01/15/25 History hr,extended release fluticasone furoate 200 1 inh inhalation Q24H 07/19/24 01/15/25 History mcg-vilanterol 25 mcg/dose inhalation powder (Breo Ellipta) linaclotide 290 mcg capsule 290 mcg PO QDAY 07/19/24 01/15/25 History (Linzess) dabrafenib 75 mg capsule (Tafinlar) 150 mg PO Q12H 01/15/25 01/15/25 History fluticasone furoate 200 1 inh inhalation QDAY 01/15/25 01/15/25 History mcg-vilanterol 25 mcg/dose inhalation powder (Breo Ellipta) folic acid 800 mcg tablet 800 mcg PO QDAY 01/15/25 01/15/25 History latanoprost 0.005 % eye drops 1 drp ophthalmic (eye) QDAY 01/15/25 01/15/25 History trametinib 0.5 mg tablet (Mekinist) 1.5 mg PO QDAY 01/15/25 01/15/25 History Allergies Allergy/AdvReac Type Severity Reaction Status Date / Time carisoprodol Allergy Severe Rash Verified 01/15/25 14:33 fluticasone Allergy Severe Rash Verified 01/15/25 14:33 hydrocodone Allergy Severe PSYCHOLOGIC Verified 01/15/25 14:33 CHANGES BEHAVIOR/ levalbuterol Allergy Severe Rash Verified 01/15/25 14:33 methocarbamol Allergy Severe Rash Verified 01/15/25 14:33 montelukast Allergy Severe Rash Verified 01/15/25 14:33 oxycodone Allergy Severe Rash Verified 01/15/25 14:33 propoxyphene Allergy Severe Rash Verified 01/15/25 14:33 pseudoephedrine Allergy Severe Rash Verified 01/15/25 14:33 chlorthalidone Allergy Intermediate Rash Verified 01/15/25 14:33 hydralazine Allergy Intermediate Irritable Verified 01/15/25 14:33 penicillamine Allergy Intermediate Rash Verified 01/15/25 14:33 Penicillins Allergy Intermediate Rash Verified 01/15/25 14:33 spironolactone Allergy Intermediate Irritable Verified 01/15/25 14:33 hydroxyzine Allergy Mild WIRED Verified 01/15/25 14:33 morphine Allergy Mild ANXIOUS, Verified 01/15/25 14:33 RASH prednisone Allergy Mild WIRED Verified 01/15/25 14:33 codeine Allergy Unknown BEHAVIOR Verified 01/15/25 14:33 CHANGES, RESTLESS gabapentin AdvReac Severe ALTERS MOOD Verified 01/15/25 14:33 tramadol AdvReac Severe ALTERS Verified 01/15/25 14:33 MOOD, CAN NOT STAY STILL meperidine AdvReac Intermediate Rash Verified 01/15/25 14:33 vancomycin AdvReac Intermediate Rash Verified 01/15/25 14:33 Exam Vital Signs Temp Pulse Resp BP Pulse Ox O2 Del Method 97.9 F 60 18 157/83 H 97 Room Air 01/19/25 16:00 01/19/25 16:36 01/19/25 16:00 01/19/25 16:00 01/19/25 16:00 01/19/25 16:00 Constitutional Comments: Chronically ill-appearing Routine Respiratory Exam Comments: Normal to auscultation Routine Abdominal Exam Comments: Soft nontender Results Labs 01/19/25 05:32 01/19/25 05:32 Labs: Short CBC 01/19/25 Range/Units 05:32 WBC 2.0 L (3.8-10.6) Thou/mm3 Hgb 10.0 L (13.5-16.0) g/dL Hct 28.7 L (41.0-53.0) % Plt Count 108 L D (140-440) Thou/mm3 BMP 01/19/25 05:32 Sodium 142 Potassium 3.5 Chloride 109 H Carbon Dioxide 21.8 BUN 28 H Creatinine 2.1 H D Glucose 109 H Calcium 8.3 Liver Function 01/19/25 Range/Units 05:32 Total Bilirubin 0.7 (0.3-1.2) mg/dL AST 315 H (0-34) U/L ALT 126 H (10-49) U/L Alkaline Phosphatase 120 H D (46-116) U/L Albumin 3.1 L (3.4-4.8) gm/dL ABG Interpretation ABG results: 01/15/25 01/16/25 01/17/25 20:26 07:15 21:22 ABG pH 7.29 L 7.28 L 7.36 ABG pCO2 23 L 27 L 30 L ABG pO2 114 H 119 H 92 D ABG HCO3 11 L 12 L 17 L ABG O2 Saturation 99 H 99 H 98 ABG Base Excess -14 L -13 L -7 L Assessment and Plan Additional Assessment & Plan Additional Plan: # Occult GI bleeding with FOBT positive Plan Clear liquid diet till 8 AM tomorrow then n.p.o. Consent obtained for fiberoptic esophagogastroduodenoscopy with possible therapeutic intervention possible biopsy scheduled for tomorrow IV Protonix Will follow the patient Other medical problems include # CRIS renal function improving # Abnormal LFTs secondary to hypoxic hepatitis improving I do not suspect any underlying chronic active hepatitis # Malignant melanoma undergoing immunotherapy # Resolving rhabdomyolysis # Resolving metabolic acidosis and lactic acidosis Thank you very much for the opportunity to participate in the care of this patient
[2025-01-19] MEDS: ESZOPICLONE 2 MG PO (21:36)
[2025-01-19] MEDS: DOXYCYCLINE 100 MG TABLET PO (21:36)
[2025-01-20] VITALS: BP 173/106; PULSE 62; PULSE 81; RESP 17; TEMP 36.6; O2SAT 96
[2025-01-20 04:00] VITALS: BP 168/103; PULSE 82; PULSE 90; RESP 18; TEMP 36.1; O2SAT 98
[2025-01-20] MEDS: QUEtiapine FUMARATE 25 MG TABLET PO (05:01)
[2025-01-20 06:00] VITALS: BMI 25.0
[2025-01-20 06:08] LABS: Basophils % (Auto) 1 % (0-2.5); Eosinophils # (Auto) 0.1 Thou/mm3 (0.0-0.5); Eosinophils % (Auto) 1 % (0-10); Hematocrit 33.3 % (41.0-53.0); Hemoglobin 11.5 g/dL (13.5-16.0); Immature Granulocytes % (Auto) 1 % (0-0); Immature Granulocytes Auto 0.05 Thou/mm3 (0.00-0.00); Lymphocytes # (Auto) 0.9 Thou/mm3 (1.0-4.8); Lymphocytes % (Auto) 17 % (10-50); Mean Corpuscular HGB Conc 34.5 g/dl (31.0-37.0); Mean Corpuscular Hemoglobin 30.1 pg (25.0-35.0); Mean Corpuscular Volume 87 fL (80-100); Monocytes # (Auto) 0.8 Thou/mm3 (0.0-0.8); Monocytes % (Auto) 14 % (0-12); Neutrophils # (Auto) 3.6 Thou/mm3 (1.8-7.7); Neutrophils % (Auto) 66 % (37-80); Nucleated Red Blood Cell % 0 /100 WBC (0); Platelet Count 127 Thou/mm3 (140-440); Red Blood Count 3.82 Miln/mm3 (4.50-5.90); White Blood Count 5.4 Thou/mm3 (3.8-10.6)
[2025-01-20 06:43] LABS: Alanine Aminotransferase 117 U/L (10-49); Albumin, Serum 3.5 gm/dL (3.4-4.8); Albumin/Globulin Ratio 1.3 (1.2-2.2); Alkaline Phosphatase 132 U/L (46-116); Anion Gap 12 (7-16); Aspartate Amino Transferase 245 U/L (0-34); BUN/Creatinine Ratio 15 Ratio (12-20); Bilirubin,Total 0.6 mg/dL (0.3-1.2); Blood Urea Nitrogen 26 mg/dL (9-23); Calcium 8.5 mg/dL (8.3-10.6); Calcium (Corrected) 8.9 mg/dL (8.5-10.1); Carbon Dioxide 21.6 mMol/L (20.0-31.0); Chloride 108 mMol/L (98-107); Creatinine (Component) 1.7 mg/dL (0.6-1.3); Estimated Creatinine Clearance 37.2 mL/min (>60); Globulin 2.7 gm/dL (2.3-3.5); Glucose 132 mg/dL (74-106); Osmolality,Calculated 289 (275-295); Potassium 3.4 mMol/L (3.4-5.1); Sodium 142 mMol/L (136-145); Total Protein 6.2 gm/dL (5.7-8.2); eGFR 45 See Note
--- NOTE | 2025-01-20 06:56 | DES_ITS ---
<Statement entered by Paras Flannery MD - 01/21/25 00:46> Patient seen and examined at bedside with resident. Agree with assessment and plan as dictated below. MELIZA GALVAN called at approximately 6:18 AM. At the time my arrival patient appeared to be in PEA. 5 rounds of epi given, sodium bicarb, calcium with no return of circulation. After approximately 3 rounds of CPR, patient rhythm converted to asystole. Discussed case with brother who is decision-maker after several rounds of CPR with no return of circulation and asystole rhythm. Discussed poor prognosis with brother who at approximately 18- minute zahida agreed to let patient pass peacefully. Time of approximately 6:38 AM. Condolences given to family. Paras Flannery MD Documentation for date of: 01/20/25 Pronouncement Note Date and Time of Date of : 01/20/25 Time of : 06:38 PCOD Preliminary cause of : Unknown and unspecified causes of morbidity Contributing Factors (1) Malignant melanoma metastatic to lung: (2) Acute renal failure: (3) CKD (chronic kidney disease) stage 3, GFR 30-59 ml/min: (4) Atrial fibrillation: (5) Rhabdomyolysis: Summary Additional details: At 6:20 AM MELIZA GALVAN was called, previously on telemetry patient was noted to be desaturating to the 40s, after that he was found pulseless. CPR was started, he received multiple rounds of epinephrine, bicarb, calcium chloride, initial rhythm was PEA, then asystole. Recently drawn morning labs values were not indicative of the cause of cardiac arrest. Vitals previous to the code were stable, BP 168/103, HR 90, afebrile, he was saturating well on minimal amount of O2 NC. Patient's family member and decision maker, Gabriel Xavier, was contacted, updated about the situation, he was explained that despite the resuscitation patient's rhythm continues to asystole and that patient's prognosis is poor. He decided to let the patient go peacefully. His decision was witnessed by Dr. Pulido. Condolences were given to the family. Plan of care discussed with attending Dr. Flannery. Joann Garcia MD, PGY 1. Additional Data Confirmation of : no pulse, no respirations, no heart sounds and pupils fixed and dilated Family: contacted Attending/PCP notified?: Yes Attending physician: Yina Ibanez, DO Was code activated?: Yes Autopsy requested?: No cellophane wrapping examiner notified?: No Organ bank notified?: No Advance directives: Yes
--- NOTE | 2025-01-20 07:13 | PC.NURSE ---
Received call from health physics technician pt o2 sat in the 40's, upon entering the room patient was unresponsive, sternal rub attempted with no response, code blue called and CPR started at 0619. CPR and medications given and patients next of kin (brother) stated to stop CPR.
--- NOTE | 2025-01-20 12:59 | PD.EDADDENDU ---
Emergency Room Addendum Addendum Narrative: I was called to assist with intubation upstairs. The patient was successfully intubated at 06:38. Within 10 seconds of intubation, the patient lost pulses. According to the residents present, the family requested that resuscitative efforts be discontinued and patient . See intubation note below. ED Procedures Intubation Time out performed: Yes Laryngoscope: fiber optic video scope Assist Device Used: fiber optic device ET Tube Size: 7.5 ET Tube Uncuffed: No Tube Secured Depth (cm): 23 Tube Secured Location: other (gum) Tube Placement Confirmation: visualized tube passing through cords, equal breath sounds bilaterally, no breath sounds over epigastrium and confirmation by capnometry Patient Tolerated Procedure: well
--- NOTE | 2025-01-20 16:56 | PC.SS ---
SS received call from Kathia [facility], for update on pt discharge to facility, provided update on pt status.
== END 2025-01-20 09:08 | disposition expired | DRG 682 ==
LOC: SERX 21:51 → SERHOLD 21:53 → S2NX 22:30 → S3NX 01-17 05:54
PROVIDERS: Internal Medicine Nephrology; Nurse Practitioner Family; Registered Nurse General Practice; Student in an Organized Health Care Education/Training Program; Admitting Provider Internal Medicine; Emergency Provider Emergency Medicine; Visit Provider Internal Medicine
DX: N17.9 Acute kidney failure, unspecified (principal); I21.A1 Myocardial infarction type 2; K85.90 Acute pancreatitis without necrosis or infection, unspecified; C78.00 Secondary malignant neoplasm of unspecified lung; E87.1 Hypo-osmolality and hyponatremia; M62.82 Rhabdomyolysis; E87.20 Acidosis, unspecified; G93.49 Other encephalopathy; E87.29 Other acidosis; C43.9 Malignant melanoma of skin, unspecified; D63.1 Anemia in chronic kidney disease; E78.5 Hyperlipidemia, unspecified; I48.91 Unspecified atrial fibrillation; K21.9 Gastro-esophageal reflux disease without esophagitis; R91.8 Other nonspecific abnormal finding of lung field; I12.9 Hypertensive chronic kidney disease with stage 1 through stage 4 chronic kidney disease, or unspecified chronic kidney disease; N18.30 Chronic kidney disease, stage 3 unspecified; I46.9 Cardiac arrest, cause unspecified; E86.0 Dehydration; E87.8 Other disorders of electrolyte and fluid balance, not elsewhere classified; J45.909 Unspecified asthma, uncomplicated; R74.01 Elevation of levels of liver transaminase levels; R62.7 Adult failure to thrive; Z85.820 Personal history of malignant melanoma of skin; Z79.899 Other long term (current) drug therapy
CPT/HCPCS: 36415; 36600; 70450; 71046; 71250; 74176; 76770; 80048; 80053; 80061; 80069; 80074; 81001; 82010; 82140; 82550; 82728; 82803; 83540; 83550; 83605; 83615; 83690; 83735; 83880; 83970; 84100; 84145; 84484; 84550; 85014; 85018; 85025; 85046; 85610; 85730; 86706; 87040; 87081; 87400; 87811; 92950; 93005; 94664; 96361; 96365; 96372; 96375; 97162; 99285; J0171; J0456; J0696; J1644; J2405; J3370; J3475; J3490; J7030; J7050; J7120; P9047; A9270